=== PATIENT | male | born 1930 | race Caucasian/White ===

== ENCOUNTER → 2016-12-19 | Outpatient (CLI) | payer MEDICARE, OTHER, BC ==
[~2016-12-19] MED LIST: 1-ME1LIQ PO; AMLO10TA2 PO; ASPI81TA82 PO; CELE200C PO; COUM2TAB PO; FINA5TAB2 PO; LISI-366 PO; METO50TA11 PO; PRAV20 PO; PRAV40TA2 PO; TAB-TAB PO; TAMS0.4C4 PO; WARF4TAB51 PO
[2016-12-19 12:15] LABS: AUTOMATED NEUTROPHIL # 4.9 TH/MM3 (1.8-7.7); BASOPHIL % 0.6 % (0.0-2.0); EOSINOPHIL # 0.1 TH/MM3 (0-0.4); EOSINOPHIL % 1.1 % (0.0-4.0); HEMATOCRIT 35.3 % (39.0-51.0); HEMO FLAGS DIFF FINAL; LYMPH % 22.8 % (9.0-44.0); LYMPHOCYTE # 1.8 TH/MM3 (1.0-4.8); MEAN CELL VOLUME 96.2 FL (80.0-100.0); MEAN CORPUSCULAR HEMOGLOBIN 30.4 PG (27.0-34.0); MEAN CORPUSCULAR HGB CONC 31.7 % (32.0-36.0); MONO % 12.1 % (0.0-8.0); NEUT % 63.4 % (16.0-70.0); PLATELET COUNT 210 TH/MM3 (150-450); RED BLOOD COUNT 3.67 MIL/MM3 (4.50-5.90); WHITE BLOOD COUNT 7.8 TH/MM3 (4.0-11.0)
[2016-12-19 12:23] LABS: ANION GAP 12 MEQ/L (5-15); AST (GOT) 41 U/L (15-37); BICARBONATE 18.9 MEQ/L (21.0-32.0); BLOOD UREA NITROGEN 32 MG/DL (7-18); CHLORIDE 108 MEQ/L (98-107); GLOMERULAR FILTRATION RATE 39 ML/MIN (>89); GLUCOSE,FASTING 140 MG/DL (74-99); POTASSIUM 5.5 MEQ/L (3.5-5.1); SODIUM (NA) 139 MEQ/L (136-145)
[2016-12-19 12:24] LABS: ALT (GPT) 33 U/L (12-78)
[2016-12-19 12:34] LABS: ALKALINE PHOSPHATASE 74 U/L (45-117); HDL CHOLESTEROL 22.8 MG/DL (40.0-60.0); LDL CHOLESTEROL 31 MG/DL (0-99); TOTAL BILIRUBIN ADULT 0.4 MG/DL (0.2-1.0)
== END ==
LOC: PLAB 10:14
PROVIDERS: ATTEND Family Medicine
DX: I10 Essential (primary) hypertension (principal); D64.9 Anemia, unspecified; E78.89 Other lipoprotein metabolism disorders; I48.91 Unspecified atrial fibrillation; R53.81 Other malaise
CPT/HCPCS: 36415; 80053; 80061; 84443; 85025

== ENCOUNTER 2017-01-09 17:45 | Observation (INO) | payer MEDICARE, OTHER, BC ==
[~2017-01-09] VITALS: Ht 175.3 cm; Wt 71.7 kg
[~2017-01-09 17:45] MED LIST changes: -AMLO10TA2 PO; -FINA5TAB2 PO; -METO50TA11 PO; -PRAV40TA2 PO; -TAMS0.4C4 PO; -WARF4TAB51 PO
[2017-01-09 17:47] VITALS: BP 120/64; PULSE 86; RESP 16; TEMP 98; O2SAT 97
[2017-01-09] MEDS ORDERED: FINA5TAB2 PO (17:53)
[2017-01-09] MEDS ORDERED: TAMS0.4C4 PO (17:53)
[2017-01-09] MEDS ORDERED: PRAV40TA2 PO (17:53)
[2017-01-09] MEDS ORDERED: AMLO10TA2 PO (17:53)
[2017-01-09] MEDS ORDERED: WARF4TAB51 PO (17:53)
[2017-01-09] MEDS ORDERED: METO50TA11 PO (17:53)
--- NOTE | 2017-01-09 18:55 | PD ---
HPI Chief Complaint: Musculoskeletal Complaint Time Seen by Provider: 18:15 Travel History International Travel<30 days: No Contact w/Intl Traveler<30days: No Traveled to known affect area: No History of Present Illness HPI 86 year-old male presents to the emergency department for evaluation of right knee pain for the past 3 days. Patient states he was doing "deep knee bends"at the gym when he heard a loud pop. He had immediate pain but it wasn't severe. Patient states he went home and went to bed but the following morning when he woke up his pain was unbearable. He had to stay in bed all day. He has been applying topical medicine without any relief in symptoms. Patient has not taken anything orally for symptoms. He states pain is okay when his knee is immobile but with any range of motion, it is unbearable. He reports some numbness in his foot. He has history of hypertension, BPH, and is on warfarin for A. fib. His PCP is Dr. Toledo. His orthopedic surgeon is Mariano Rodrigez. [facility] Past Medical History Cardiac Catheterization: Yes Cardiovascular Problems: Yes High Cholesterol: Yes Coronary Artery Disease: Yes Influenza Vaccination: Yes Past Surgical History Coronary Artery Bypass Graft: Yes Joint Replacement: Yes (LEFT KNEE) Social History Alcohol Use: No Tobacco Use: No Substance Use: No Allergies-Medications (Allergen,Severity, Reaction): Coded Allergies: No Known Allergies (Verified , 01/09/17) Uncoded Allergies: NKA (Allergy, Unknown, 03/14/03) Reported Meds & Prescriptions Reported Meds & Active Scripts Active Reported Tamsulosin (Tamsulosin HCl) 0.4 Mg Cap 0.4 Mg PO HS Pravastatin 40 Mg Tab 40 Mg PO HS Finasteride 5 Mg Tab 5 Mg PO DAILY Do not crush. Metoprolol Succinate ER 24 HR (Metoprolol Succinate) 50 Mg Tab 50 Mg PO DAILY Warfarin 2 Mg Tab 2 Mg PO DAILY Amlodipine (Amlodipine Besylate) 10 Mg Tab 10 Mg PO DAILY Review of Systems Except as stated in HPI: all other systems reviewed are Neg Physical Exam Narrative GENERAL: Well-nourished, well-developed male in no acute distress. Afebrile. SKIN: Focused skin assessment warm/dry. Mild erythema of the patellar region. No ecchymosis. HEAD: Normocephalic. EYES: No scleral icterus. No injection or drainage. NECK: Supple, trachea midline. No JVD or lymphadenopathy. CARDIOVASCULAR: Regular rate and rhythm without murmurs, gallops, or rubs. RESPIRATORY: Breath sounds equal bilaterally. No accessory muscle use. EXTREMITY: Right knee extremely tender to light palpation. Very limited range of motion secondary to pain. Obvious effusion and moderate edema of the right knee. 2+ dorsalis pedis pulse. Patient has pain with active and passive range of motion. Compartments soft. Data Data Last Documented VS Vital Signs Date Time Temp Pulse Resp B/P Pulse Ox O2 Delivery O2 Flow Rate FiO2 01/09/17 17:47 98.0 86 16 120/64 97 Orders Knee, Complete (4vws) (01/09/17 ) Acetamin-Hydrocod 325-5 Mg ([place] 5-325 (01/09/17 19:00) MDM Medical Decision Making Medical Screen Exam Complete: Yes Emergency Medical Condition: Yes Medical Record Reviewed: Yes Differential Diagnosis Internal derangement, strain, fracture, hemarthrosis Narrative Course 86-year-old male presents to the emergency room for evaluation of right knee pain for the past 3 days. Patient injured it while working out. States he heard a pop and had immediate pain that has been worsening over time. Right lower extremity is neurovascularly intact with 2+ dorsalis pedis pulse. Patient has extreme tenderness to palpation of the knee and pain with active and passive range of motion. There is moderate effusion and edema. X-ray shows moderate effusion. Likely has internal derangement and will need outpatient MRI. Patient has no medical indication for admission at this time but is unable to ambulate, lives alone, is on anticoagulants, and has no family in the area. He will be admitted for rehabilitation consult. I spoke to Dr. Alfredo who agrees to admit this patient to her service. Diagnosis Primary Impression: Right knee sprain Qualified Code: S83.91XA - Sprain of right knee, unspecified ligament, initial encounter Referrals: Orthopaedic Surgeon Additional Instructions: Rest and drink plenty of fluids. Take Lortab as directed, as needed for pain. Do not drink alcohol or drive while taking this medication. Keep knee tightly wrapped until follow-up. Apply ice to the affected area for 20 minutes at a time, as needed for pain and swelling. Follow-up with orthopedic surgeon. Return to the emergency room for worsening symptoms. Condition: Stable Charlette Young Jan 09, 2017 18:54
[2017-01-09] MEDS ORDERED: ACETAMINOPHEN/HYDROcodone 325 MG/5 MG TAB PO ONE (19:00)
--- NOTE | 2017-01-09 19:57 | RADRPT ---
EXAM DATE/TIME: 01/09/2017 18:56 [facility] COMPARISON: No previous studies available for comparison. INDICATIONS : Right knee pain behind knee cap after doing a deep knee bend patient states he heard a pop. MEDICAL HISTORY : None. SURGICAL HISTORY : Total knee replacement, left. ENCOUNTER: Initial ACUITY: 2 days PAIN SCORE: 8/10 LOCATION: Right knee FINDINGS: Mild osteopenia. There is marked narrowing of the lateral compartment of the knee with sclerosis of the articular surfaces on both sides of the joint. No significant narrowing of the medial compartmen t. The patella appears grossly intact. There is some fullness in the suprapatellar soft tissues sug gesting the possibility of joint effusion. Prominent vascular calcification in the posterior thigh t hrough calf. Multiple hemoclips in the soft tissues of the medial proximal leg. CONCLUSION: 1. Moderate severity lateral compartmental osteoarthritis. 2. Possible knee effusion. Jim Milner MD on January 09, 2017 at 19:53 Board Certified Radiologist. This report was verified electronically.
[2017-01-09] MEDS ORDERED: NALOXONE HCL 0.4 MG/ML AMP IV PRN (20:30)
[2017-01-09] MEDS ORDERED: SODIUM CHLORIDE 0.9% FLUSH 10 ML FLUSH IV FLUSH PRN (20:30)
[2017-01-09 20:35] VITALS: BP 130/66; PULSE 78; RESP 18; O2SAT 95
[2017-01-09] MEDS: SODIUM CHLORIDE 0.9% FLUSH 10 ML FLUSH IV FLUSH SCH (21:00)
[2017-01-09] MEDS: ACETAMINOPHEN/HYDROcodone 325 MG/5 MG TAB PO PRN (23:10)
[2017-01-09 23:30] VITALS: PULSE 77
[2017-01-10] VITALS: BP 134/69; PULSE 74; RESP 20; TEMP 96.4; O2SAT 99
[2017-01-10] MEDS: ACETAMINOPHEN/HYDROcodone 325 MG/5 MG TAB PO PRN ×3 (03:50→20:25)
[2017-01-10 04:00] VITALS: BP 109/56; PULSE 72; RESP 18; TEMP 97.6; O2SAT 95
[2017-01-10 06:25] LABS: POTASSIUM 3.4 MEQ/L (3.5-5.1)
[2017-01-10 06:27] LABS: AUTOMATED NEUTROPHIL # 5.9 TH/MM3 (1.8-7.7); BASOPHIL # 0.1 TH/MM3 (0-0.2); BASOPHIL % 0.8 % (0.0-2.0); BICARBONATE 26.9 MEQ/L (21.0-32.0); EOSINOPHIL # 0.1 TH/MM3 (0-0.4); EOSINOPHIL % 0.7 % (0.0-4.0); HEMATOCRIT 29.4 % (39.0-51.0); HEMO FLAGS DIFF FINAL; LYMPH % 17.1 % (9.0-44.0); LYMPHOCYTE # 1.7 TH/MM3 (1.0-4.8); MEAN CORPUSCULAR HEMOGLOBIN 31.2 PG (27.0-34.0); MEAN CORPUSCULAR HGB CONC 33.2 % (32.0-36.0); MONO % 19.8 % (0.0-8.0); NEUT % 61.6 % (16.0-70.0); PLATELET COUNT 135 TH/MM3 (150-450); RED BLOOD COUNT 3.13 MIL/MM3 (4.50-5.90); RED CELL DISTRIBUTION WIDTH 13.4 % (11.6-17.2); WHITE BLOOD COUNT 9.7 TH/MM3 (4.0-11.0)
[2017-01-10 08:00] VITALS: BP 110/77; PULSE 84; RESP 20; TEMP 95.6; O2SAT 95
[2017-01-10] MEDS: SODIUM CHLORIDE 0.9% FLUSH 10 ML FLUSH IV FLUSH SCH ×2 (09:07→21:49)
--- NOTE | 2017-01-10 10:29 | HHI.HP ---
[facility] No Primary Care Physician Admission Diagnosis right knee pain, inability to ambulate, unsafe for discharge Diagnoses: (1) Right knee pain Diagnosis: Principal (2) Inability to ambulate due to right knee Diagnosis: Principal (3) Hypertension Diagnosis: Secondary (4) Coronary artery disease Diagnosis: Secondary (5) Atrial fibrillation Diagnosis: Secondary Chief Complaint: Right knee pain Travel History International Travel<30 Days: No Contact w/Intl Traveler <30 Da: No Traveled to Known Affected Are: No History of Present Illness Written by Kris Allred, acting as scribe for Dr. Cabrera on 01/10/17 at 10: 15. This note was transcribed by scribe Kris JIMENEZ. I, Dr. Ana Maria Cabrera personally performed the history, physical exam, and medical decision making; and confirmed the accuracy of the information in the transcribed note. Authenticated by Dr. Ana Maria Cabrera on 01/10/17 at 10:15. 86-year-old male with known history of hypertension, atrial fibrillation, coronary disease status post CABG who presented to the hospital because of right knee pain and inability to ambulate. Patient states that he usually goes and exercises 5 times a week. Patient states that he was on his last set of deep knee bends on Friday when he heard a pop and started developing pain in his right knee. The patient states that he went home any was using ice and throughout the next couple days the pain progressively got worse, he developed redness over his knee, he could not ambulate so he called [facility] who brought him to the hospital for evaluation. Patient had workup done to include x-ray which showed moderate severity lateral compartmental osteoarthritis and possible knee effusion. Patient has rather significant cardiac history, he lives at home by himself, does not have any family locally, neighbors and friends are unavailable at this time. Patient is unable to walk and take care of himself at home and is high risk for further injury. Patient was recommended observation in the hospital for further evaluation and management. Patient orthopedist is Dr. Rodrigez Review of Systems Constitutional: DENIES: Diaphoretic episodes, Fatigue, Fever, Weight gain, Weight loss, Chills, Dizziness, Change in appetite, Night Sweats Eyes: DENIES: Blurred vision, Diplopia, Eye inflammation, Eye pain, Vision loss , Double Vision Ears, nose, mouth, throat: DENIES: Hearing loss, Nasal discharge, Throat pain, Ear Pain, Running Nose, Sinus Pain Respiratory: DENIES: Apneas, Cough, Snoring, Wheezing, Hemoptysis, Sputum production, Shortness of breath Cardiovascular: DENIES: Chest pain, Palpitations, Syncope, Dyspnea on Exertion , Lower Extremity Edema, Orthopnea Gastrointestinal: DENIES: Abdominal pain, Black stools, Bloody stools, Constipation, Diarrhea, Nausea, Vomiting, Difficulty Swallowing, Anorexia Musculoskeletal: COMPLAINS OF: Joint pain, DENIES: Muscle aches, Stiffness, Joint Swelling, Back pain, Neck pain Neurologic: COMPLAINS OF: Abnormal gait, Poor Balance, DENIES: Headache, Localized weakness, Paresthesias, Seizures, Speech Problems, Tremor Psychiatric: DENIES: Anxiety, Confusion, Mood changes, Depression, Hallucinations, Agitation, Suicidal Ideation, Homicidal Ideation, Delusions Past Family Social History Past Medical History Hypertension Hyperlipidemia Coronary artery disease Chronic Atrial fibrillation Peripheral arterial disease Past Surgical History Coronary bypass surgery in 2002 Permanent pacemaker Left knee replacement Cataract surgery Reported Medications Reported Meds & Active Scripts Active Reported Tamsulosin (Tamsulosin HCl) 0.4 Mg Cap 0.4 Mg PO HS Pravastatin 40 Mg Tab 40 Mg PO HS Finasteride 5 Mg Tab 5 Mg PO DAILY Do not crush. Metoprolol Succinate ER 24 HR (Metoprolol Succinate) 50 Mg Tab 50 Mg PO DAILY Warfarin 2 Mg Tab 2 Mg PO DAILY Amlodipine (Amlodipine Besylate) 10 Mg Tab 10 Mg PO DAILY Allergies: Coded Allergies: MRI PRECAUTION (Verified Adverse Reaction, Severe, NON CONDITIONAL PACER KMD 01/10/17, 01/10/17) PT HAS AN ADAPTA NON CONDITIONAL PACEMAKER BY [employer] Uncoded Allergies: NKA (Allergy, Unknown, 03/14/03) Family History Reviewed and significant for mother in her 60s from diabetes, Social History Patient states that he only smoked during the time he was [place] , he does drink alcohol every weekend, he states that he shares a bottle of wine or a sixpack of beer. Denies any illicit drug Physical Exam Vital Signs Vital Signs Date Time Temp Pulse Resp B/P Pulse Ox O2 Delivery O2 Flow Rate FiO2 01/10/17 08:00 95.6 84 20 110/77 95 01/10/17 04:00 97.6 72 18 109/56 95 01/10/17 00:00 96.4 74 20 134/69 99 01/09/17 23:30 77 01/09/17 20:40 78 01/09/17 20:35 78 18 130/66 95 Room Air 01/09/17 20:15 18 01/09/17 17:47 98.0 86 16 120/64 97 Physical Exam GENERAL: Well-developed, well-nourished, in no acute distress. alert and orientated HEENT: Head is normocephalic without any lesions or masses noted. Facial features are symmetric. Eyes: Pupils equal round reactive to light. Extraocular muscles are intact. Conjunctivae were clear. Oropharyngeal: Pharynx without any erythema edema. Tongue is midline without deviation. Buccal mucosa is moist without any masses or lesions NECK: Supple without any masses. Trachea midline no deviation. No JVD, no bruits are appreciated CARDIAC: Regular rhythm, regular rate. S1/S2 are heard. 2/6 holosystolic murmur gallops or rubs. LUNGS: Clear to auscultation bilaterally. No wheeze, rhonchi or rales. No use of accessory muscles on inspiration or expiration. ABDOMEN: Soft, nontender. Nondistended. Bowel sounds heard in all 4 quadrants. No organomegaly or masses. Negative rebound, negative guarding EXTREMITIES: No edema, pulses are equal bilaterally. No cyanosis or clubbing NEUROLOGY: Mood and affect appear appropriate. Cranial nerves II through XII grossly intact. Muscle strength 5/5 in upper and lower extremities bilaterally. Deep tendon reflexes are 2+ in upper and lower extremities bilaterally. RIGHT KNEE: Knee appears to warm to the touch and erythematous noted over the patella. Is painful in all range of motions. There was no distraction noted medially, laterally, anteriorly or posteriorly. Laboratory Laboratory Tests Test 01/10/17 05:33 White Blood Count 9.7 Red Blood Count 3.13 Hemoglobin 9.8 Hematocrit 29.4 Mean Corpuscular Volume 94.0 Mean Corpuscular Hemoglobin 31.2 Mean Corpuscular Hemoglobin 33.2 Concent Red Cell Distribution Width 13.4 Platelet Count 135 Mean Platelet Volume 10.7 Neutrophils (%) (Auto) 61.6 Lymphocytes (%) (Auto) 17.1 Monocytes (%) (Auto) 19.8 Eosinophils (%) (Auto) 0.7 Basophils (%) (Auto) 0.8 Neutrophils # (Auto) 5.9 Lymphocytes # (Auto) 1.7 Monocytes # (Auto) 1.9 Eosinophils # (Auto) 0.1 Basophils # (Auto) 0.1 CBC Comment DIFF FINAL Differential Comment Sodium Level 139 Potassium Level 3.4 Chloride Level 103 Carbon Dioxide Level 26.9 Anion Gap 9 Blood Urea Nitrogen 15 Creatinine 0.78 Estimat Glomerular Filtration 95 Rate Random Glucose 93 Calcium Level 8.4 Result Diagram: 01/10/17 0533 01/10/17 0533 Imaging Last Impressions Knee X-Ray 01/09/17 0000 Signed Impressions: Service Date/Time: January 18:56 - CONCLUSION: 1. Moderate severity lateral compartmental osteoarthritis. 2. Possible knee effusion. Jim Milner MD Assessment and Plan Assessment and Plan 86-year-old male who is brought to the hospital by ambulance because of inability to ambulate, severe right knee pain Right knee pain , intractable, with inability to ambulate Possible internal derangement, hemarthrosis X-ray does indicate moderate severity lateral compartmental osteoarthritis and possible knee effusion Obtain MRI for further evaluation Physical therapy evaluation continue pain control Consult case management for discharge arrangements Hypertension, hyperlipidemia, coronary artery disease, chronic atrial fibrillation Blood pressure stable this time Continue home medications DVT prevention patient is on Coumadin Problem Qualifiers (1) Right knee pain: Qualified Code: M25.561 - Acute pain of right knee (2) Hypertension: Qualified Code: I15.9 - Secondary hypertension (3) Coronary artery disease: Qualified Code: I25.10 - Coronary artery disease without angina pectoris, unspecified vessel or lesion type, unspecified whether [place] or transplanted heart (4) Atrial fibrillation: Qualified Code: I48.91 - Atrial fibrillation, unspecified type Kris Allred Jan 10, 2017 10:29 Ana Maria Cabrera MD Jan 10, 2017 13:42
[2017-01-10] MEDS: WARFARIN SOD 2 MG TAB PO SCH (10:57)
[2017-01-10 10:58] LABS: INTERNATIONAL NORMALIZED RATIO 1.8 RATIO; PROTHROMBIN TIME - PATIENT 20.8 SEC (9.8-11.6)
[2017-01-10] MEDS: METOPROLOL SUCCINATE 50 MG EXTENDED RELEASE TAB PO SCH (10:58)
[2017-01-10] MEDS: FINASTERIDE 5 MG TAB PO SCH (10:58)
[2017-01-10 12:00] VITALS: BP 132/60; PULSE 71; RESP 18; TEMP 98.7; O2SAT 95
[2017-01-10 16:00] VITALS: BP 139/62; PULSE 78; RESP 20; TEMP 99.4; O2SAT 95
[2017-01-10 20:09] VITALS: BP 135/66; PULSE 73; RESP 20; TEMP 99.9; O2SAT 94
[2017-01-10] MEDS: PRAVASTATIN SOD 40 MG TAB PO SCH (21:49)
[2017-01-10] MEDS: TAMSULOSIN HCL 0.4 MG CAP PO SCH (21:49)
[2017-01-11 01:25] VITALS: BP 140/71; PULSE 70; RESP 12; TEMP 98.9; O2SAT 91
[2017-01-11] MEDS: ACETAMINOPHEN/HYDROcodone 325 MG/5 MG TAB PO PRN ×5 (01:26→18:16)
[2017-01-11 08:00] VITALS: BP 122/61; PULSE 72; RESP 18; TEMP 96.9; O2SAT 95
[2017-01-11] MEDS: WARFARIN SOD 2 MG TAB PO SCH (08:01)
[2017-01-11] MEDS: SODIUM CHLORIDE 0.9% FLUSH 10 ML FLUSH IV FLUSH SCH ×2 (08:01→21:24)
[2017-01-11] MEDS: METOPROLOL SUCCINATE 50 MG EXTENDED RELEASE TAB PO SCH (08:01)
[2017-01-11] MEDS: FINASTERIDE 5 MG TAB PO SCH (08:01)
[2017-01-11 12:00] VITALS: BP 127/63; PULSE 72; RESP 18; TEMP 97.3; O2SAT 97
--- NOTE | 2017-01-11 13:10 | HHI.PR ---
Subjective Remarks In bed. Says pain is better controlled by meds. He is not able to ambulate much. He dod complainof indigestion. No vomiting, no diarrhea or constipation. Denies fever or chills. Knee is still very painful, red and swollen. Objective Vitals Vital Signs Date Time Temp Pulse Resp B/P Pulse Ox O2 Delivery O2 Flow Rate FiO2 01/11/17 12:00 97.3 72 18 127/63 97 01/11/17 08:00 96.9 72 18 122/61 95 01/11/17 01:25 98.9 70 12 140/71 91 01/10/17 20:09 99.9 73 20 135/66 94 01/10/17 16:00 99.4 78 20 139/62 95 I/O 01/10/17 01/10/17 01/10/17 01/11/17 01/11/17 01/11/17 07:00 15:00 23:00 07:00 15:00 23:00 Intake Total 240 ml 720 ml 240 ml Output Total 375 ml 600 ml 250 ml Balance -135 ml 720 ml 240 ml -600 ml -250 ml Intake Oral 240 ml 720 ml 240 ml Output Urine Total 375 ml 600 ml 250 ml # Voids 1 2 # Bowel Movements 1 Result Diagram: 01/10/17 0533 01/10/17 0533 Imaging Last Impressions Knee X-Ray 01/09/17 0000 Signed Impressions: Service Date/Time: January 18:56 - CONCLUSION: 1. Moderate severity lateral compartmental osteoarthritis. 2. Possible knee effusion. Jim Milner MD Objective Remarks GENERAL: Well-developed, well-nourished, in no acute distress. alert and orientated CARDIAC: Regular rhythm, regular rate. S1/S2 are heard. 2/6 holosystolic murmur gallops or rubs. LUNGS: Clear to auscultation bilaterally. No wheeze, rhonchi or rales. No use of accessory muscles on inspiration or expiration. ABDOMEN: Soft, nontender. Nondistended. Bowel sounds heard in all 4 quadrants. No organomegaly or masses. Negative rebound, negative guarding EXTREMITIES: No edema, pulses are equal bilaterally. No cyanosis or clubbing RIGHT KNEE: Knee appears to warm to the touch and erythematous noted over the patella. Is painful in all range of motions. There was no distraction noted medially, laterally, anteriorly or posteriorly. NEUROLOGY: Mood and affect appear appropriate. Cranial nerves II through XII grossly intact. Muscle strength 5/5 in upper and lower extremities bilaterally. Deep tendon reflexes are 2+ in upper and lower extremities bilaterally. A/P Problem List: (1) Right knee pain ICD Code: M25.561 Status: Acute (2) Inability to ambulate due to right knee ICD Code: R26.2 Status: Acute (3) Hypertension ICD Code: I10 Status: Acute (4) Coronary artery disease ICD Code: I25.10 Status: Acute (5) Atrial fibrillation ICD Code: I48.91 Status: Acute Assessment and Plan 86-year-old male who is brought to the hospital by ambulance because of inability to ambulate, severe right knee pain Right knee pain , intractable, with inability to ambulate Possible internal derangement, hemarthrosis X-ray does indicate moderate severity lateral compartmental osteoarthritis and possible knee effusion Obtain MRI for further evaluation Physical therapy evaluation continue pain control Consult case management for discharge arrangements Hypertension, hyperlipidemia, coronary artery disease, chronic atrial fibrillation Blood pressure stable this time Continue home medications DVT prevention patient is on Coumadin Discussed with the patient nurse DC plan Likely needs rehab. Problem Qualifiers (1) Right knee pain: Qualified Code: M25.561 - Acute pain of right knee (2) Hypertension: Qualified Code: I15.9 - Secondary hypertension (3) Coronary artery disease: Qualified Code: I25.10 - Coronary artery disease without angina pectoris, unspecified vessel or lesion type, unspecified whether [place] or transplanted heart (4) Atrial fibrillation: Qualified Code: I48.91 - Atrial fibrillation, unspecified type Ana Maria Cabrera MD Jan 11, 2017 13:10
[2017-01-11] MEDS ORDERED: NORC5TAB PO (13:13)
[2017-01-11] MEDS ORDERED: PANTOPRAZOLE SOD 20 MG DELAYED RELEASE TAB PO ONE (13:15)
--- NOTE | 2017-01-11 13:15 | HHI.DS ---
Discharge Summary Admission Date Jan 09, 2017 at 20:24 Discharge Date: Jan 12, 2017 Admitting Diagnosis right knee pain, inability to ambulate, unsafe for discharge (1) Right knee pain ICD Code: M25.561 Diagnosis: Principal (2) Inability to ambulate due to right knee ICD Code: R26.2 Diagnosis: Principal (3) Hypertension ICD Code: I10 Diagnosis: Secondary (4) Coronary artery disease ICD Code: I25.10 Diagnosis: Secondary (5) Atrial fibrillation ICD Code: I48.91 Diagnosis: Secondary Procedures none Brief History - From Admission Written by Kris Allred, acting as scribe for Dr. Cabrera on 01/10/17 at 10: 15. This note was transcribed by scribe Kris JIMENEZ. I, Dr. Ana Maria Cabrera personally performed the history, physical exam, and medical decision making; and confirmed the accuracy of the information in the transcribed note. Authenticated by Dr. Ana Maria Cabrera on 01/10/17 at 10:15. 86-year-old male with known history of hypertension, atrial fibrillation, coronary disease status post CABG who presented to the hospital because of right knee pain and inability to ambulate. Patient states that he usually goes and exercises 5 times a week. Patient states that he was on his last set of deep knee bends on Friday when he heard a pop and started developing pain in his right knee. The patient states that he went home any was using ice and throughout the next couple days the pain progressively got worse, he developed redness over his knee, he could not ambulate so he called [facility] who brought him to the hospital for evaluation. Patient had workup done to include x-ray which showed moderate severity lateral compartmental osteoarthritis and possible knee effusion. Patient has rather significant cardiac history, he lives at home by himself, does not have any family locally, neighbors and friends are unavailable at this time. Patient is unable to walk and take care of himself at home and is high risk for further injury. Patient was recommended observation in the hospital for further evaluation and management. Patient orthopedist is Dr. Rodrigez CBC/BMP: 01/10/17 0533 01/10/17 0533 Significant Findings Laboratory Tests Test 01/10/17 05:33 Red Blood Count 3.13 MIL/MM3 (4.50-5.90) Hemoglobin 9.8 GM/DL (13.0-17.0) Hematocrit 29.4 % (39.0-51.0) Platelet Count 135 TH/MM3 (150-450) Monocytes (%) (Auto) 19.8 % (0.0-8.0) Monocytes # (Auto) 1.9 TH/MM3 (0-0.9) Prothrombin Time 20.8 SEC (9.8-11.6) Potassium Level 3.4 MEQ/L (3.5-5.1) Calcium Level 8.4 MG/DL (8.5-10.1) Imaging Last Impressions Lower Extremity CT 01/11/17 0000 Signed Impressions: Service Date/Time: Wednesday, January 11, 2017 14:30 - CONCLUSION: 1. No fracture. 2. Loose body and small joint effusion. 3. Chondrocalcinosis. Lucian Armstrong MD Knee X-Ray 01/09/17 0000 Signed Impressions: Service Date/Time: January 18:56 - CONCLUSION: 1. Moderate severity lateral compartmental osteoarthritis. 2. Possible knee effusion. Jim Milner MD PE at Discharge GENERAL: Well-developed, well-nourished, in no acute distress. alert and orientated CARDIAC: Regular rhythm, regular rate. S1/S2 are heard. 2/6 holosystolic murmur gallops or rubs. LUNGS: Clear to auscultation bilaterally. No wheeze, rhonchi or rales. No use of accessory muscles on inspiration or expiration. ABDOMEN: Soft, nontender. Nondistended. Bowel sounds heard in all 4 quadrants. No organomegaly or masses. Negative rebound, negative guarding EXTREMITIES: No edema, pulses are equal bilaterally. No cyanosis or clubbing RIGHT KNEE: Knee appears to warm to the touch and erythematous noted over the patella. Is painful in all range of motions. There was no distraction noted medially, laterally, anteriorly or posteriorly. NEUROLOGY: Mood and affect appear appropriate. Cranial nerves II through XII grossly intact. Muscle strength 5/5 in upper and lower extremities bilaterally. Deep tendon reflexes are 2+ in upper and lower extremities bilaterally. Hospital Course 86-year-old male who is brought to the hospital by ambulance because of inability to ambulate, severe right knee pain Right knee pain, intractable, with inability to ambulate Possible internal derangement, hemarthrosis X-ray does indicate moderate severity lateral compartmental osteoarthritis and possible knee effusion CT knee as MRI can't be done 2/2 has a PM, for further evaluation. X ray and also CT of knee reviewed and findings discussed with Dr Negrete Orthopedic doctor. He recommends Hinged knee brace, pain control and to follow up as OP Physical therapy evaluation continue pain control Consult case management for discharge arrangements Hypertension, hyperlipidemia, coronary artery disease, chronic atrial fibrillation Blood pressure stable this time Continue home medications DVT prevention patient is on Coumadin Discussed with the patient nurse DC plan needs rehab. Case management following for DC plan. DC to SNF in stable condition to follow up as OP with PCP and consultants. Pt Condition on Discharge: Stable Discharge Disposition: Discharge to SNF Discharge Time: > 30 minutes Discharge Instructions DIET: Follow Instructions for: Heart Healthy Diet Activities you can perform: Weight Bearing as Denise Follow up Referrals: Orthopedics - 1 Week PCP Follow-up - 3-5 Days New Medications: Docusate Sodium (Docusate Sodium) 100 Mg Cap 100 MG PO BID Prevent Constipation #60 Ref 0 CAP Hydrocodone-Acetaminophen ([place]) 5-325 mg Tab 1 TAB PO Q6H PRN PAIN #15 Ref 0 TAB Continued Medications: Amlodipine (Amlodipine) 10 Mg Tab 10 MG PO DAILY Blood Pressure Management #30 Ref 0 TAB Finasteride (Finasteride) 5 Mg Tab 5 MG PO DAILY Do not crush. Manage Prostate Problems #30 Ref 0 TAB Metoprolol Succinate ER 24 HR (Metoprolol Succinate ER 24 HR) 50 Mg Tab 50 MG PO DAILY #30 Ref 0 TAB Pravastatin (Pravastatin) 40 Mg Tab 40 MG PO HS Cholesterol Management #30 Ref 0 TAB Tamsulosin (Tamsulosin) 0.4 Mg Cap 0.4 MG PO HS Manage Prostate Problems #30 Ref 0 CAP Warfarin (Warfarin) 2 Mg Tab 2 MG PO DAILY Blood Clot Prevention #30 Ref 0 TAB Ana Maria Cabrera MD Jan 11, 2017 13:15
[2017-01-11] MEDS ORDERED: DOCU100C PO (13:24)
[2017-01-11] MEDS ORDERED: IOHEXOL 350 MG/ML 10 ML VIAL (for RAD DIAG) IV ONE (15:11)
--- NOTE | 2017-01-11 15:22 | RADRPT ---
EXAM DATE/TIME: 01/11/2017 14:30 [facility] COMPARISON: No previous studies available for comparison. INDICATIONS : Right knee pain, redness and swelling. Difficulty ambulating. IV CONTRAST: 70 cc Omnipaque 350 (iohexol) IV RADIATION DOSE: 11.11 CTDIvol (mGy) MEDICAL HISTORY : Cardiovascular disease. SURGICAL HISTORY : CABG Pacemaker. ENCOUNTER: Initial ACUITY: 2 days PAIN SCALE: 8/10 LOCATION: Right knee. TECHNIQUE: Volumetric scanning of the knee was performed. Using automated exposure control and adjustment of th e mA and/or kV according to patient size, radiation dose was kept as low as reasonably achievable to obtain optimal diagnostic quality images. DICOM format image data is available electronically for re view and comparison. FINDINGS: BONES: No evidence of fracture. Alignment is within normal limits. Moderate to severe osteoarthritis. JOINTS: Small joint effusion. A loose body seen posteriorly measuring 1.6 x 1.9 cm. Chondrocalcinosis. SOFT TISSUES: Muscles, tendons and neurovascular structures are grossly unremarkable. No evidence of mass, organize d fluid collection, or foreign body. CONCLUSION: 1. No fracture. 2. Loose body and small joint effusion. 3. Chondrocalcinosis. Lucian Armstrong MD on January 11, 2017 at 15:17 Board Certified Radiologist. This report was verified electronically.
[2017-01-11 16:00] VITALS: BP 107/56; PULSE 63; RESP 18; TEMP 96; O2SAT 95
[2017-01-11 20:00] VITALS: BP 110/72; PULSE 70; RESP 18; TEMP 97.8; O2SAT 96
[2017-01-11] MEDS: TAMSULOSIN HCL 0.4 MG CAP PO SCH (21:24)
[2017-01-11] MEDS: PRAVASTATIN SOD 40 MG TAB PO SCH (21:25)
[2017-01-12] VITALS: BP 126/66; PULSE 71; RESP 18; TEMP 97.7; O2SAT 97
[2017-01-12 06:46] LABS: AUTOMATED NEUTROPHIL # 6.8 TH/MM3 (1.8-7.7); BASOPHIL % 0.2 % (0.0-2.0); EOSINOPHIL % 0.3 % (0.0-4.0); HEMATOCRIT 31.2 % (39.0-51.0); LYMPH % 11.1 % (9.0-44.0); MEAN CELL VOLUME 94.1 FL (80.0-100.0); MEAN CORPUSCULAR HEMOGLOBIN 30.5 PG (27.0-34.0); MEAN CORPUSCULAR HGB CONC 32.4 % (32.0-36.0); MONO % 11.8 % (0.0-8.0); NEUT % 76.6 % (16.0-70.0); PLATELET COUNT 152 TH/MM3 (150-450); RED BLOOD COUNT 3.32 MIL/MM3 (4.50-5.90); RED CELL DISTRIBUTION WIDTH 13.6 % (11.6-17.2); WHITE BLOOD COUNT 8.9 TH/MM3 (4.0-11.0)
[2017-01-12 06:50] LABS: HEMO FLAGS DIFF FINAL
[2017-01-12 06:59] LABS: POTASSIUM 3.5 MEQ/L (3.5-5.1)
[2017-01-12 07:06] LABS: BICARBONATE 27.9 MEQ/L (21.0-32.0); MAGNESIUM 1.5 MG/DL (1.5-2.5)
[2017-01-12 08:00] VITALS: BP 124/55; PULSE 71; RESP 20; TEMP 99.2; O2SAT 92
[2017-01-12] MEDS ORDERED: PANTOPRAZOLE SOD 20 MG DELAYED RELEASE TAB PO SCH (09:00)
[2017-01-12] MEDS: FINASTERIDE 5 MG TAB PO SCH (09:39)
[2017-01-12] MEDS: METOPROLOL SUCCINATE 50 MG EXTENDED RELEASE TAB PO SCH (09:39)
[2017-01-12] MEDS: WARFARIN SOD 2 MG TAB PO SCH (09:39)
[2017-01-12] MEDS: SODIUM CHLORIDE 0.9% FLUSH 10 ML FLUSH IV FLUSH SCH (09:43)
--- NOTE | 2017-01-12 11:36 | HHI.PR ---
Subjective Remarks Patient in bed, still with significant pain in his knee, says she can't walk because of pain. Swelling in his knee not improved, using ice compresses. Eating better. No n/v/d/c. No fever or chills/. Objective Vitals Vital Signs Date Time Temp Pulse Resp B/P Pulse Ox O2 Delivery O2 Flow Rate FiO2 01/12/17 08:00 99.2 71 20 124/55 92 01/12/17 04:00 01/12/17 00:00 97.7 71 18 126/66 97 01/11/17 20:00 97.8 70 18 110/72 96 01/11/17 16:00 96.0 63 18 107/56 95 01/11/17 12:00 97.3 72 18 127/63 97 I/O 01/11/17 01/11/17 01/11/17 01/12/17 01/12/17 01/12/17 07:00 15:00 23:00 07:00 15:00 23:00 Intake Total 120 ml 120 ml 240 ml Output Total 600 ml 500 ml 250 ml 350 ml Balance -600 ml -380 ml -130 ml -110 ml Intake Oral 120 ml 120 ml 240 ml Output Urine Total 600 ml 500 ml 250 ml 350 ml # Voids 2 # Bowel Movements 0 0 1 Result Diagram: 01/12/17 0605 01/12/17 0605 Imaging Last Impressions Lower Extremity CT 01/11/17 0000 Signed Impressions: Service Date/Time: Wednesday, January 11, 2017 14:30 - CONCLUSION: 1. No fracture. 2. Loose body and small joint effusion. 3. Chondrocalcinosis. Lucian Armstrong MD Knee X-Ray 01/09/17 0000 Signed Impressions: Service Date/Time: January 18:56 - CONCLUSION: 1. Moderate severity lateral compartmental osteoarthritis. 2. Possible knee effusion. Jim Milner MD Objective Remarks GENERAL: Well-developed, well-nourished, in no acute distress. alert and orientated CARDIAC: Regular rhythm, regular rate. S1/S2 are heard. 2/6 holosystolic murmur gallops or rubs. LUNGS: Clear to auscultation bilaterally. No wheeze, rhonchi or rales. No use of accessory muscles on inspiration or expiration. ABDOMEN: Soft, nontender. Nondistended. Bowel sounds heard in all 4 quadrants. No organomegaly or masses. Negative rebound, negative guarding EXTREMITIES: No edema, pulses are equal bilaterally. No cyanosis or clubbing RIGHT KNEE: Knee appears to warm to the touch and erythematous noted over the patella. Is painful in all range of motions. There was no distraction noted medially, laterally, anteriorly or posteriorly. NEUROLOGY: Mood and affect appear appropriate. Cranial nerves II through XII grossly intact. Muscle strength 5/5 in upper and lower extremities bilaterally. Deep tendon reflexes are 2+ in upper and lower extremities bilaterally. A/P Problem List: (1) Right knee pain ICD Code: M25.561 Status: Acute (2) Inability to ambulate due to right knee ICD Code: R26.2 Status: Acute (3) Hypertension ICD Code: I10 Status: Acute (4) Coronary artery disease ICD Code: I25.10 Status: Acute (5) Atrial fibrillation ICD Code: I48.91 Status: Acute Assessment and Plan 86-year-old male who is brought to the hospital by ambulance because of inability to ambulate, severe right knee pain Right knee pain, intractable, with inability to ambulate Possible internal derangement, hemarthrosis X-ray does indicate moderate severity lateral compartmental osteoarthritis and possible knee effusion CT knee as MRI can't be done 2/2 has a PM, for further evaluation. X ray and also CT of knee reviewed and findings discussed with Dr Negrete Orthopedic doctor. He recommends Hinged knee brace, pain control and to follow up as OP Physical therapy evaluation continue pain control Consult case management for discharge arrangements Hypertension, hyperlipidemia, coronary artery disease, chronic atrial fibrillation Blood pressure stable this time Continue home medications DVT prevention patient is on Coumadin Discussed with the patient nurse DC plan needs rehab. Case management following for DC plan. Problem Qualifiers (1) Right knee pain: Qualified Code: M25.561 - Acute pain of right knee (2) Hypertension: Qualified Code: I15.9 - Secondary hypertension (3) Coronary artery disease: Qualified Code: I25.10 - Coronary artery disease without angina pectoris, unspecified vessel or lesion type, unspecified whether [place] or transplanted heart (4) Atrial fibrillation: Qualified Code: I48.91 - Atrial fibrillation, unspecified type Ana Maria Cabrera MD Jan 12, 2017 11:36
[2017-01-12 12:00] VITALS: BP 121/67; PULSE 80; RESP 20; TEMP 98.2; O2SAT 93
[2017-01-12] MEDS: ACETAMINOPHEN/HYDROcodone 325 MG/5 MG TAB PO PRN ×2 (14:16→18:09)
[2017-01-12 16:00] VITALS: BP 116/61; PULSE 71; RESP 18; TEMP 98.7; O2SAT 95
== END 2017-01-12 19:13 ==
LOC: PHEFT 17:45 → PHEDA 20:24 → PH3B 22:44
PROVIDERS: ADMIT Hospitalist; ATTEND Hospitalist
DX: M25.561 Pain in right knee (principal); S83.91XA Sprain of unspecified site of right knee, initial encounter; M25.461 Effusion, right knee; M11.261 Other chondrocalcinosis, right knee; M17.11 Unilateral primary osteoarthritis, right knee; K30 Functional dyspepsia; R20.0 Anesthesia of skin; I15.9 Secondary hypertension, unspecified; I25.10 Atherosclerotic heart disease of native coronary artery without angina pectoris; I73.9 Peripheral vascular disease, unspecified; I48.2 Chronic atrial fibrillation; E78.5 Hyperlipidemia, unspecified; E78.00 Pure hypercholesterolemia, unspecified; N40.0 Benign prostatic hyperplasia without lower urinary tract symptoms; Z79.899 Other long term (current) drug therapy; Z95.1 Presence of aortocoronary bypass graft; Z79.01 Long term (current) use of anticoagulants; Z87.891 Personal history of nicotine dependence; Z96.652 Presence of left artificial knee joint; Z95.0 Presence of cardiac pacemaker; X58.XXXA Exposure to other specified factors, initial encounter; Y93.B9 Activity, other involving muscle strengthening exercises
CPT/HCPCS: 73564; 73701; 80048; 83735; 85025; 85610; 97163; 99285; G0378; G8987; G8988; L1810; Q9967

== ENCOUNTER → 2017-02-14 | Outpatient (CLI) | payer MEDICARE, BC ==
[~2017-02-14] MED LIST changes: -1-ME1LIQ PO; +AMLO10TA2 PO; +APIX5TAB PO; +ASCO100016 PO; -ASPI81TA82 PO; -CELE200C PO; +CHOL1CAP6 PO; +COMMODE 3-IN-11 MIS; -COUM2TAB PO; +DOCU100C PO; +FERR325T20 PO; +FINA5TAB2 PO; +HYDR-3516 PO; -LISI-366 PO; +LISI-515 PO; +METO50TA11 PO; +MULT1TAB PO; +NORC5TAB PO; +PANT40TA3 PO; +POLY17S PO; -PRAV20 PO; +PRAV40TA2 PO; +PRIL20TA2 PO; +SYMB80AE INH; -TAB-TAB PO; +TAMS0.4C4 PO; +WARF4TAB51 PO; +WHEEMIS3; +[UNRECOGNIZED DRUG - OTHER]
[2017-02-14 12:15] LABS: HEMATOCRIT 36.1 % (39.0-51.0); MEAN CELL VOLUME 95.2 FL (80.0-100.0); MEAN CORPUSCULAR HEMOGLOBIN 31.3 PG (27.0-34.0); MEAN CORPUSCULAR HGB CONC 32.9 % (32.0-36.0); PLATELET COUNT 174 TH/MM3 (150-450); RED BLOOD COUNT 3.79 MIL/MM3 (4.50-5.90); RED CELL DISTRIBUTION WIDTH 14.9 % (11.6-17.2); REVIEW FLAG FINAL; WHITE BLOOD COUNT 6.9 TH/MM3 (4.0-11.0)
[2017-02-14 12:22] LABS: BACTERIA, URINE OCC /hpf; BLOOD, URINE NEG (NEG); COMMENT (UR) CULT NOT INDICATED; CULTURE IF INDICATED CULT NOT INDICATED; GLUCOSE,URINE NEG (NEG); HYALINE CAST, URINE 11 /lpf (RARE); KETONE, URINE NEG (NEG); MUCUS URINE MANY /lpf (OCC); NITRITE,URINE NEG (NEG); PH, URINE 6.5 (5.0-8.5); SQUAMOUS EPITHELIAL CELL URINE <1 /hpf (0-5); URINE COLOR DARK-YELLOW (YELLW/STRAW)
[2017-02-14 12:24] LABS: APTT (PATIENT) 42.2 SEC (24.3-30.1); INTERNATIONAL NORMALIZED RATIO 3.3 RATIO; PROTHROMBIN TIME - PATIENT 38.2 SEC (9.8-11.6)
[2017-02-14 12:45] LABS: BICARBONATE 28.8 MEQ/L (21.0-32.0); POTASSIUM 3.6 MEQ/L (3.5-5.1)
--- NOTE | 2017-02-15 17:16 | EKG ---
Date Performed: 02/14/2017 Time Performed: 12:29:09 PTAGE: 86 years EKG: ELECTRONIC VENTRICULAR PACEMAKER ABNORMAL RHYTHM ECG Compared to prior tracing no significa nt change PREVIOUS TRACING 04/11/2009 09.33.36 DOCTOR: Santi Osorio Interpretating Date/Time 02/15/2017 17:14:06
== END ==
LOC: CPRE 11:41
PROVIDERS: ATTEND Orthopaedic Surgery
DX: Z01.810 Encounter for preprocedural cardiovascular examination (principal); Z01.812 Encounter for preprocedural laboratory examination; M17.11 Unilateral primary osteoarthritis, right knee; M79.609 Pain in unspecified limb; R94.31 Abnormal electrocardiogram [ECG] [EKG]
CPT/HCPCS: 36415; 80048; 81001; 85027; 85610; 85730; 93005

== ENCOUNTER 2017-02-25 05:41 | Day surgery (SDC) | payer MEDICARE, BC ==
[~2017-02-25] VITALS: Ht 175.3 cm; Wt 68.5 kg
[~2017-02-25 05:41] MED LIST changes: -APIX5TAB PO; -COMMODE 3-IN-11 MIS; -DOCU100C PO; -FERR325T20 PO; -HYDR-3516 PO; -METO50TA11 PO; -NORC5TAB PO; -PANT40TA3 PO; -POLY17S PO; -WHEEMIS3; -[UNRECOGNIZED DRUG - OTHER]
[2017-02-25] MEDS ORDERED: ceFAZolin 2 GM PREMIX 50 ML IV SCH (06:00)
[2017-02-25] MEDS ORDERED: CHLORHEXIDINE GLUCONATE 4% SOLN 120 ML BTL TOPICAL SCH (06:00)
[2017-02-25] MEDS ORDERED: EXPAREL PERI-ARTICULAR INJECTION (TOTAL VOL. 100 ML) P-ARTICULR SCH ×2 (06:00)
[2017-02-25] MEDS ORDERED: TRANEXAMIC ACID INJ 685 MG in SODIUM CHLORIDE 0.9% INJ 100 ML IV SCH ×4 (06:00)
[2017-02-25] MEDS ORDERED: METOPROLOL TARTRATE 25 MG TAB PO PRN (06:15)
[2017-02-25] MEDS ORDERED: POVIDONE IODINE 5% (ANTISEPSIS KIT) 4 APPLICATIONS EACH NARE PRN (06:15)
[2017-02-25] MEDS ORDERED: CHLORHEXIDINE GLUCONATE 2 % 1 PACK (2 CLOTHS) TOPICAL PRN (06:15)
[2017-02-25] MEDS ORDERED: INSULIN HUMAN REGULAR 1,000 UNITS/10 ML VIAL SQ PRN (06:15)
[2017-02-25] MEDS ORDERED: LACTATED RINGER'S 1000 ML IV PRN (06:15)
[2017-02-25] MEDS ORDERED: SODIUM CHLORID 0.9% 500 ML IV PRN (06:15)
[2017-02-25 06:51] VITALS: BP 134/61; PULSE 70; RESP 18; TEMP 97.6; O2SAT 99
[2017-02-25] MEDS ORDERED: GENTAMICIN SULFATE 80 MG/2 ML VIAL ONE (07:02)
[2017-02-25 07:22] LABS: INTERNATIONAL NORMALIZED RATIO 1.6 RATIO
[2017-03-13] MEDS ORDERED: COMMODE 3-IN-11 MIS (14:13)
[2017-03-13] MEDS ORDERED: WHEEMIS3 (14:13)
[2017-03-13] MEDS ORDERED: [UNRECOGNIZED DRUG - OTHER] (14:14)
[2017-03-18] MEDS ORDERED: PRAV40TA2 PO (09:35)
[2017-03-18] MEDS ORDERED: PANT40TA3 PO (09:35)
[2017-03-18] MEDS ORDERED: POLY17S PO (09:35)
[2017-03-18] MEDS ORDERED: TAMS0.4C4 PO (09:35)
[2017-03-18] MEDS ORDERED: FINA5TAB2 PO (09:35)
[2017-03-18] MEDS ORDERED: APIX5TAB PO (09:35)
[2017-03-18] MEDS ORDERED: FERR325T20 PO (09:35)
[2017-03-18] MEDS ORDERED: MULT1TAB PO (09:35)
[2017-03-18] MEDS ORDERED: CHOL1CAP6 PO (09:35)
[2017-03-18] MEDS ORDERED: ASCO100016 PO (09:35)
[2017-03-18] MEDS ORDERED: SYMB80AE INH (09:35)
[2017-03-18] MEDS ORDERED: HYDR-3516 PO (09:35)
[2017-03-18] MEDS ORDERED: AMLO10TA2 PO (09:35)
== END 2017-02-25 08:42 | disposition home or self-care (01) ==
LOC: HSDC 05:41 → UNDOADMIN 05:41 → HSDI 05:41 → EDSTATUS 08:30 → UNDODISIN 08:42 → HSDC 08:42
PROVIDERS: ATTEND Orthopaedic Surgery
DX: M17.11 Unilateral primary osteoarthritis, right knee (principal); R79.89 Other specified abnormal findings of blood chemistry; I48.91 Unspecified atrial fibrillation; Z53.09 Procedure and treatment not carried out because of other contraindication
CPT/HCPCS: 85610; 86850; 86900; 86901; G0463; J7120; 99211; J1580

== ENCOUNTER 2017-03-03 05:02 | Inpatient (IN) | payer MEDICARE, BC ==
[~2017-03-03] VITALS: Ht 175.3 cm; Wt 91.2 kg
[2017-03-03] MEDS ORDERED: ceFAZolin 2 GM PREMIX 50 ML IV SCH (05:30)
[2017-03-03] MEDS ORDERED: CHLORHEXIDINE GLUCONATE 2 % 1 PACK (2 CLOTHS) TOPICAL PRN (05:30)
[2017-03-03] MEDS ORDERED: LACTATED RINGER'S 1000 ML IV PRN (05:30)
[2017-03-03] MEDS ORDERED: POVIDONE IODINE 5% (ANTISEPSIS KIT) 4 APPLICATIONS EACH NARE PRN (05:30)
[2017-03-03] MEDS ORDERED: SODIUM CHLORID 0.9% 500 ML IV PRN (05:30)
[2017-03-03] MEDS ORDERED: INSULIN HUMAN REGULAR 1,000 UNITS/10 ML VIAL SQ PRN (05:30)
[2017-03-03] MEDS ORDERED: METOPROLOL TARTRATE 25 MG TAB PO PRN (05:30)
[2017-03-03] MEDS ORDERED: CHLORHEXIDINE GLUCONATE 4% SOLN 120 ML BTL TOPICAL SCH (05:30)
[2017-03-03] MEDS ORDERED: APIX5TAB PO (05:50)
[2017-03-03] MEDS ORDERED: TRANEXAMIC ACID INJ 670 MG in SODIUM CHLORIDE 0.9% INJ 100 ML IV SCH ×2 (06:00→09:00)
[2017-03-03] MEDS ORDERED: EXPAREL PERI-ARTICULAR INJECTION (TOTAL VOL. 100 ML) P-ARTICULR SCH ×2 (06:00)
[2017-03-03] MEDS ORDERED: GENTAMICIN SULFATE 80 MG/2 ML VIAL ONE (06:08)
[2017-03-03 06:16] LABS: INTERNATIONAL NORMALIZED RATIO 1.1 RATIO; PROTHROMBIN TIME - PATIENT 11.8 SEC (9.8-11.6)
[2017-03-03] MEDS ORDERED: TRANEXAMIC ACID INJ 0 MG in SODIUM CHLORIDE 0.9% INJ 100 ML IV SCH (07:00)
[2017-03-03] MEDS ORDERED: MORPHINE SULFATE 4 MG/ML INJ IV PUSH PRN (07:00)
[2017-03-03] MEDS ORDERED: MAGNESIUM HYDROXIDE SUSP 30 ML CUP PO PRN (07:00)
[2017-03-03] MEDS ORDERED: ACETAMINOPHEN/HYDROcodone 325 MG/7.5 MG TAB PO PRN ×2 (07:00)
[2017-03-03] MEDS ORDERED: KETOROLAC TROMETHAMINE 30 MG/ML (IVP) VIAL IVP SCH (07:00)
[2017-03-03] MEDS ORDERED: ONDANSETRON HCL 4 MG/2 ML VIAL IVP PRN (07:00)
[2017-03-03] MEDS ORDERED: Post-op Orders (for Pharmacy) MISC XX ONE (07:00)
[2017-03-03] MEDS ORDERED: SODIUM CHLORIDE 0.9% FLUSH 5 ML FLUSH IVF PRN (07:00)
[2017-03-03] MEDS ORDERED: BUPIVACAINE HCL PF 0.5% 30 ML VIAL NERV BLOCK ONE (08:16)
--- NOTE | 2017-03-03 08:52 | HHI.FF ---
Face to Face Verification Diagnosis: (1) Status post total right knee replacement Physical Therapy Gait training Knee: Total knee, Protocol: Right, Gait training, Full weight bearing Right LE Weight Bearing: WB as tolerated Right LE Range of Motion: Active ROM (AROM, AAROM, PROM, PRE. ROM goal is 0 to 140 degrees. ROM in the OR was 0 to 150 degrees.) Nursing Nursing: Dressing changes Dressing Changes: Daily dressing change, Coverderm/Primapore Additional Instructions Remove steristrips on postop day 14. I have seen patient Kael Trevizo on 03/03/17. My clinical findings support the need for the requested home health care services because: Ltd mobility - disease progression Deconditioned w/ increased weakness Limited ability to care for self High risk of falls I certify that my clinical findings support that this patient is homebound because: Post-op weakness Unsteady gait/balance Unsafe to leave home unassisted Adrienne Rodrigez MD ([place]) Mar 03, 2017 08:52
[2017-03-03] MEDS: SODIUM CHLORIDE 0.9% FLUSH 5 ML FLUSH IVF SCH ×2 (09:00→21:00)
[2017-03-03] MEDS ORDERED: PHENYLEPH/NS 1000 MCG/10 ML SYR IV ONE (09:13)
[2017-03-03] MEDS ORDERED: ONDANSETRON HCL 4 MG/2 ML VIAL IV PUSH ONE (09:13)
[2017-03-03] MEDS ORDERED: PROPOFOL 200 MG/20 ML AMP IV ONE (09:13)
[2017-03-03] MEDS ORDERED: DO NOT ADM ANY ANTICOAGULANT DRUGS PRN (09:18)
[2017-03-03] MEDS: LACTATED RINGER'S 1000 ML INJ 1,000 ML IV SCH ×2 (09:35→18:45)
[2017-03-03] MEDS: MULTIVITAMINS/MINERALS THERAPEUTIC TAB PO SCH (10:45)
[2017-03-03] MEDS: CHOLECALCIFEROL (VIT D3) 1000 UNIT TAB PO SCH (10:45)
[2017-03-03] MEDS: BUDESONIDE-FORMOTEROL 80/4.5 MCG INHALER INH SCH ×2 (10:45→21:22)
[2017-03-03] MEDS: ASCORBIC ACID 500 MG TAB PO SCH (10:45)
[2017-03-03] MEDS: KETOROLAC TROMETHAMINE 30 MG/ML (IVP) VIAL IVP SCH ×3 (13:15→23:34)
--- NOTE | 2017-03-03 13:47 | RADRPT ---
EXAM DATE/TIME: 03/03/2017 10:07 [facility] COMPARISON: No previous studies available for comparison. INDICATIONS : Post op right knee surgery. MEDICAL HISTORY : None. SURGICAL HISTORY : None. ENCOUNTER: Initial ACUITY: 1 day PAIN SCORE: 0/10 LOCATION: Right knee FINDINGS: 2 views of the knee show a total knee prosthesis in good position. No fracture or dislocation is obse rved. Soft tissue swelling is noted. Surgical drain seen. Atherosclerotic calcifications involving th e popliteal artery and trifurcation vessels. CONCLUSION: Total knee arthroplasty in good position. Jim Posey Jr., MD on March 03, 2017 at 13:43 Board Certified Radiologist. This report was verified electronically.
[2017-03-03 16:45] VITALS: BP 131/62; PULSE 70; RESP 18; TEMP 97.1; O2SAT 96
--- NOTE | 2017-03-03 18:07 | PD.CONS ---
HPI Service [facility] Hospitalists Consult Requested By Mariano Rodrigez M.D. Reason for Consult Medical management Primary Care Physician Bernabe Kemp MD Diagnoses: History of Present Illness Written by Marco Gandara PA-C, acting as scribe for Dr. Byron Hernandez on 03/03/17 at 17:38. Mr. 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 Between his service in the and as a senior quality technician he denies posttraumatic stress disorder. For several years, Mr. Trevizo has been having right knee pain. The pain has been significant enough to impede his ambulation. He underwent total right knee arthroplasty by Dr. Rodrigez on 03/03/17. The Hospitalist team was consulted to address medical management for Mr. Trevizo. At time of interview, Mr. Trevizo denied significant pain in the right knee. He denied cough, shortness of breath, sore throat, nausea and vomiting, diarrhea, bloody urine or stool. He did endorse having difficulty urinating after surgery and this required him to be straight cathed. A 10 point review of systems was completed, and except as noted above, was negative. 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 coronary artery disease GERD hyperlipidemia hypertension Past Surgical History Bilateral cataract Total left knee arthroplasty 2000 Pacemaker implantation Quadruple bypass 2007 Reported Medications Reported Meds & Active Scripts Active Reported Eliquis (Apixaban) 5 Mg Tab 5 Mg PO BID Prilosec (Omeprazole Magnesium) 20 Mg Tab 0.5 Tab PO PRN Centrum Silver Adult 50+ (Multiple Vitamins W/ Minerals) 1 Tab Tab 1 Tab PO DAILY Vitamin D-3 (Cholecalciferol) 1,000 Unit Cap 1 Cap PO DAILY Vitamin C (Ascorbic Acid) 1,000 Mg Tablet.er 1 Tab PO DAILY Symbicort Inh (Budesonide/Formoterol Fumarate) 80-4.5 Mcg/Act Aero 2 Puff INH Q12HR Lisinopril 20 Mg Tab 20 Mg PO HS Tamsulosin (Tamsulosin HCl) 0.4 Mg Cap 0.4 Mg PO HS Pravastatin 40 Mg Tab 40 Mg PO HS Finasteride 5 Mg Tab 5 Mg PO HS Do not crush. Warfarin 2 Mg Tab 2 Mg PO HS Amlodipine (Amlodipine Besylate) 10 Mg Tab 10 Mg PO HS Active Ordered Medications Current Medications Medications (Trade) Dose Ordered Sig/Brandon Route Start Time Stop Time Status Last Admin (Hibiclens 4% Top Soln) 1 applic ONCE TOPICAL 03/03/17 05:30 03/06/17 05:29 03/02/17 05:45 Cefazolin Sodium/ Dextrose 50 ml @ 100 mls/hr MEASURING CLERK IV 03/03/17 05:30 03/06/17 05:29 03/03/17 07:07 Tranexamic Acid 670 mg/Sodium Chloride 106.7 ml @ 200 mls/hr ONCE IV 03/03/17 06:00 03/04/17 05:59 03/03/17 07:12 Lactated Ringer's 1,000 ml @ 30 mls/hr Q24H PRN IV 03/03/17 05:30 03/06/17 05:29 03/03/17 05:30 Sodium Chloride 500 ml @ 30 mls/hr [id number] PRN IV 03/03/17 05:30 03/06/17 05:29 (Lopressor) 25 mg MEASURING CLERK PRN PO 03/03/17 05:30 03/06/17 05:29 (Betadine 5% Antisepsis Kit) 1 applic MEASURING CLERK PRN EACH NARE 03/03/17 05:30 03/06/17 05:29 03/03/17 06:07 (Chlorhexidine 2% Cloth) 3 pack MEASURING CLERK PRN TOPICAL 03/03/17 05:30 03/06/17 05:29 03/03/17 05:30 (NovoLIN R INJ) See Protocol Table ... MEASURING CLERK PRN SQ 03/03/17 05:30 03/06/17 05:29 Lactated Ringer's 1,000 ml @ 80 mls/hr [id number] IV 03/03/17 06:51 03/03/17 09:35 (NS Flush) 2 ml UNSCH PRN IVF 03/03/17 07:00 (NS Flush) 2 ml BID IVF 03/03/17 09:00 Cefazolin Sodium 1000 mg/Sodium Chloride 100 ml @ 200 mls/hr Q6H IV 03/03/17 13:00 03/04/17 01:29 03/03/17 13:05 (Morphine Inj) 4 mg Q3H PRN IV PUSH 03/03/17 07:00 ([place] 7.5-325 Mg) 1 tab Q4H PRN PO 03/03/17 07:00 ([place] 7.5-325 Mg) 2 tab Q4H PRN PO 03/03/17 07:00 (Zofran Inj) 4 mg Q6H PRN IVP 03/03/17 07:00 (Colace) 100 mg BID PO 03/04/17 21:00 (Ambien) 5 mg HS PRN PO 03/03/17 21:00 (Milk Of Magnesia Liq) 30 ml DAILY PRN PO 03/03/17 07:00 (Ecotrin Ec) 81 mg BID PO 03/04/17 08:00 (Norvasc) 10 mg HS PO 03/03/17 21:00 (Eliquis) 5 mg BID PO 03/04/17 08:00 (Symbicort 80-4.5 Mcg Inh) 2 puff Q12HR INH 03/03/17 10:45 (Proscar) 5 mg HS PO 03/03/17 21:00 (Prinivil) 20 mg HS PO 03/03/17 21:00 (Pravachol) 40 mg HS PO 03/03/17 21:00 (Flomax) 0.4 mg HS PO 03/03/17 21:00 (Vitamin C) 1,000 mg DAILY PO 03/03/17 10:45 (Vitamin D3) 1,000 units DAILY PO 03/03/17 10:45 (Theragran M Tab) 1 tab DAILY PO 03/03/17 10:45 Miscellaneous Information ALL NURSING DEPARTME... UNSCH PRN .XX 03/03/17 09:18 03/04/17 09:17 (Toradol Inj) 15 mg Q6H IVP 03/03/17 13:00 03/05/17 07:01 03/03/17 13:15 Family History Mother diabetes at age 62 Father of old age 2 sisters in their 70s cause unknown Patient denied family history of cancer Social History Patient smoked cigarettes for 3 years while in the [place] Alcohol use reported on the weekends only. Patient reported drinking approximately 8 beers a weekend as well as 2-3 glasses of wine. Illicit/recreational drug usage denied. Physical Exam Vital Signs Vital Signs Date Time Temp Pulse Resp B/P (MAP) Pulse Ox O2 Delivery O2 Flow Rate FiO2 03/03/17 16:40 98.1 69 18 123/59 (80) 99 Room Air 03/03/17 16:00 70 18 120/62 (81) 98 Room Air 03/03/17 15:08 69 18 121/60 (80) 98 Room Air 03/03/17 14:30 69 17 155/67 (96) 99 Room Air 03/03/17 13:30 70 18 141/65 (90) 99 Room Air 03/03/17 12:30 73 18 163/64 (97) 99 Room Air 03/03/17 11:30 71 18 164/69 (100) 99 Room Air 03/03/17 11:00 69 18 167/70 (102) 99 Room Air 03/03/17 10:30 70 18 149/67 (94) 98 Room Air 03/03/17 10:15 69 16 133/64 (87) 99 Room Air 03/03/17 10:00 72 16 130/60 (83) 99 Room Air 03/03/17 09:45 69 17 136/61 (86) 99 Room Air 03/03/17 09:30 75 17 121/65 (83) 99 Room Air 03/03/17 09:12 97.5 70 17 139/63 (88) 99 Room Air 03/03/17 06:00 97.5 72 16 112/58 (76) 100 Physical Exam GENERAL: This is a well-nourished, well-developed patient, in no apparent distress. SKIN: No rashes, ecchymoses or lesions. Cool and dry. pace maker noted right upper chest. HEAD: Atraumatic. Normocephalic. EYES: Pupils equal round and reactive. Extraocular motions intact. No scleral icterus. No injection or drainage. ENT: Nose without bleeding or purulent drainage or septal hematoma. Airway patent. NECK: Trachea midline. No lymphadenopathy. Supple and nontender. CARDIOVASCULAR: Regular rate and rhythm without murmurs, gallops, or rubs. RESPIRATORY: Clear to auscultation. Breath sounds equal bilaterally. No wheezes , rales, or rhonchi. GASTROINTESTINAL: Abdomen soft, non-tender, nondistended. No hepato-splenomegaly , or guarding. MUSCULOSKELETAL: Extremities without clubbing, cyanosis, or edema. No joint tenderness, effusion, or edema noted. NEUROLOGICAL: Awake and alert. Cranial nerves II through XII intact. Motor and sensory grossly within normal limits. Five out of 5 muscle strength in all muscle groups, except right lower extremity which was not examined due to recent surgery. Speech was clear and fluent. Laboratory Laboratory Tests Test 03/03/17 05:40 Prothrombin Time 11.8 Prothromb Time International Ratio 1.1 Imaging Last Impressions Knee X-Ray 03/03/17 0651 Signed Impressions: Service Date/Time: Friday, March 03, 2017 10:07 - CONCLUSION: Total knee arthroplasty in good position. Jim Posey Jr., MD Assessment and Plan Assessment and Plan Mr. 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 For several years, Mr. Trevizo has been having right knee pain. The pain has been significant enough to impede his ambulation. He underwent total right knee arthroplasty by Dr. Rodrigez on 03/03/17. S/P right total knee arthroplasty -Rehabilitation per orthopedics -Pain management per orthopedics Hypertension -Continue home regimen lisinopril 20 mg and amlodipine 10 mg GERD -continue Prilosec 20 mg Hyperlipidemia -Pravastatin 40 mg Diet: basic DVT prophylaxis: -SCD's -Pharmacological anticoagulant therapy to be initiated once cleared by surgery. BPH: -Finasteride 5 mg and tamsulosin 0.4 mg Atrial fibrillation -Apixaban 5 mg and warfarin 2 mg -The above to be restarted when cleared by surgery. The exam, history, and the medical decision-making described in the above note were completed with the assistance of the mid-level provider. I reviewed and agree with the findings presented. I attest that I had a [id number] encounter with the patient on the same day, and personally performed and documented my assessment and findings in the medical record. Discussed Condition With Discussed with patient. Marco Gandara Jr. Mar 03, 2017 18:07 Lalit Vides MD Mar 04, 2017 08:17
[2017-03-03 20:30] VITALS: BP 118/60; PULSE 70; RESP 16; TEMP 96.3; O2SAT 99
[2017-03-03] MEDS ORDERED: PRAVASTATIN SOD 40 MG TAB PO SCH (21:00)
[2017-03-03] MEDS ORDERED: FINASTERIDE 5 MG TAB PO SCH (21:00)
[2017-03-03] MEDS ORDERED: ZOLPIDEM TARTRATE 5 MG TAB PO PRN (21:00)
[2017-03-03] MEDS ORDERED: LISINOPRIL 20 MG TAB PO SCH (21:00)
[2017-03-03] MEDS ORDERED: TAMSULOSIN HCL 0.4 MG CAP PO SCH (21:00)
[2017-03-04 00:35] VITALS: BP 107/53; PULSE 72; RESP 16; TEMP 97.5; O2SAT 96
[2017-03-04 04:45] VITALS: BP 116/57; PULSE 71; RESP 16; TEMP 96.9; O2SAT 96
[2017-03-04] MEDS: KETOROLAC TROMETHAMINE 30 MG/ML (IVP) VIAL IVP SCH (06:04)
[2017-03-04 06:06] LABS: HEMATOCRIT 26.5 % (39.0-51.0); REVIEW FLAG FINAL
[2017-03-04 06:38] LABS: BICARBONATE 26.5 MEQ/L (21.0-32.0); MAGNESIUM 1.5 MG/DL (1.5-2.5); POTASSIUM 4.3 MEQ/L (3.5-5.1)
[2017-03-04 08:00] VITALS: BP 127/69; PULSE 71; RESP 18; TEMP 96.7; O2SAT 99
[2017-03-04] MEDS ORDERED: ASPIRIN EC 81 MG TABEC PO SCH (08:00)
[2017-03-04] MEDS ORDERED: APIXABAN 5 MG TABLET PO SCH (08:00)
[2017-03-04] MEDS: SODIUM CHLORIDE 0.9% FLUSH 5 ML FLUSH IVF SCH (08:02)
[2017-03-04] MEDS: MULTIVITAMINS/MINERALS THERAPEUTIC TAB PO SCH (08:02)
[2017-03-04] MEDS: LACTATED RINGER'S 1000 ML INJ 1,000 ML IV SCH (08:03)
[2017-03-04] MEDS: ASCORBIC ACID 500 MG TAB PO SCH (08:06)
[2017-03-04] MEDS: CHOLECALCIFEROL (VIT D3) 1000 UNIT TAB PO SCH (08:06)
--- NOTE | 2017-03-04 08:26 | PD.ORT.PN ---
Subjective Post Op Day #: 1 Subjective Remarks He is doing well with almost no pain. He has been OOB walking without difficulty. Range of Motion -20 to 90 degrees. Distance Walked 25 feet twice. Objective Vitals Vital Signs Date Time Temp Pulse Resp B/P (MAP) Pulse Ox O2 Delivery O2 Flow Rate FiO2 03/04/17 04:45 96.9 71 16 116/57 (76) 96 03/04/17 00:35 97.5 72 16 107/53 (71) 96 03/03/17 20:30 96.3 70 16 118/60 (79) 99 03/03/17 16:45 97.1 70 18 131/62 (85) 96 03/03/17 16:40 98.1 69 18 123/59 (80) 99 Room Air 03/03/17 16:00 70 18 120/62 (81) 98 Room Air 03/03/17 15:08 69 18 121/60 (80) 98 Room Air 03/03/17 14:30 69 17 155/67 (96) 99 Room Air 03/03/17 13:30 70 18 141/65 (90) 99 Room Air 03/03/17 12:30 73 18 163/64 (97) 99 Room Air 03/03/17 11:30 71 18 164/69 (100) 99 Room Air 03/03/17 11:00 69 18 167/70 (102) 99 Room Air 03/03/17 10:30 70 18 149/67 (94) 98 Room Air 03/03/17 10:15 69 16 133/64 (87) 99 Room Air 03/03/17 10:00 72 16 130/60 (83) 99 Room Air 03/03/17 09:45 69 17 136/61 (86) 99 Room Air 03/03/17 09:30 75 17 121/65 (83) 99 Room Air 03/03/17 09:12 97.5 70 17 139/63 (88) 99 Room Air I/O 03/03/17 03/03/17 03/03/17 03/04/17 03/04/17 03/04/17 07:00 15:00 23:00 07:00 15:00 23:00 Intake Total 2200 ml 1180 ml 220 ml Output Total 800 ml 410 ml 430 ml Balance 1400 ml 770 ml -210 ml Intake Oral 540 ml 120 ml IV Total 1200 ml 640 ml 100 ml Other 1000 ml Output Urine Total 500 ml 400 ml 400 ml Drainage Total 10 ml 30 ml Estimated Blood Loss 300 ml # Voids 0 # Bowel Movements 0 0 Result Diagram: 03/04/17 0535 03/04/17 0535 Imaging Last 72 hours Impressions Knee X-Ray 03/03/17 0651 Signed Impressions: Service Date/Time: Friday, March 03, 2017 10:07 - CONCLUSION: Total knee arthroplasty in good position. Jim Posey Jr., MD Objective Remarks He is sitting OOB in chair, comfortably. The dressing is dry and intact. The neurovascular status is intact. Assessment & Plan Ortho Post Op Day #: 1 Problem List: (1) Status post total right knee replacement ICD Codes: Z96.651 - Presence of right artificial knee joint Status: Acute Plan: Continue postop care and PT. Assessment and Plan Condition: Good. Orthopaedically stable. DVT prophylaxis: TEDs, Eliquis resumption, sequentials. Discharge plans: Home with [facility] versus [facility] Has appointment. Adrienne Rodrigez MD ([place]) Mar 04, 2017 08:26
--- NOTE | 2017-03-04 08:49 | HHI.PR ---
Subjective Remarks This is a pleasant 86 y/o male with BPH, CAD, atrial Fibrillation, Hyperlipidemia, Hypertension, GERD, with status post Surgery Total Right knee arthroplasty, today will be discharge by her Primary Orthopedic Surgeon Objective Vital Signs Date Time Temp Pulse Resp B/P (MAP) Pulse Ox O2 Delivery O2 Flow Rate FiO2 03/04/17 04:45 96.9 71 16 116/57 (76) 96 03/04/17 00:35 97.5 72 16 107/53 (71) 96 03/03/17 20:30 96.3 70 16 118/60 (79) 99 03/03/17 16:45 97.1 70 18 131/62 (85) 96 03/03/17 16:40 98.1 69 18 123/59 (80) 99 Room Air 03/03/17 16:00 70 18 120/62 (81) 98 Room Air 03/03/17 15:08 69 18 121/60 (80) 98 Room Air 03/03/17 14:30 69 17 155/67 (96) 99 Room Air 03/03/17 13:30 70 18 141/65 (90) 99 Room Air 03/03/17 12:30 73 18 163/64 (97) 99 Room Air 03/03/17 11:30 71 18 164/69 (100) 99 Room Air 03/03/17 11:00 69 18 167/70 (102) 99 Room Air 03/03/17 10:30 70 18 149/67 (94) 98 Room Air 03/03/17 10:15 69 16 133/64 (87) 99 Room Air 03/03/17 10:00 72 16 130/60 (83) 99 Room Air 03/03/17 09:45 69 17 136/61 (86) 99 Room Air 03/03/17 09:30 75 17 121/65 (83) 99 Room Air 03/03/17 09:12 97.5 70 17 139/63 (88) 99 Room Air I/O 03/03/17 03/03/17 03/03/17 03/04/17 03/04/17 03/04/17 07:00 15:00 23:00 07:00 15:00 23:00 Intake Total 2200 ml 1180 ml 220 ml Output Total 800 ml 410 ml 430 ml Balance 1400 ml 770 ml -210 ml Intake Oral 540 ml 120 ml IV Total 1200 ml 640 ml 100 ml Other 1000 ml Output Urine Total 500 ml 400 ml 400 ml Drainage Total 10 ml 30 ml Estimated Blood Loss 300 ml # Voids 0 # Bowel Movements 0 0 Result Diagram: 03/04/17 0535 03/04/17 0535 Imaging Last Impressions Knee X-Ray 03/03/17 0651 Signed Impressions: Service Date/Time: Friday, March 03, 2017 10:07 - CONCLUSION: Total knee arthroplasty in good position. Jim Posey Jr., MD Procedures Total Right Knee Arthroplasty. 03/03/17 Other Results Laboratory Tests Test 03/03/17 05:40 03/04/17 05:35 Prothrombin Time 11.8 SEC Prothromb Time International Ratio 1.1 RATIO Hemoglobin 9.0 GM/DL Hematocrit 26.5 % Blood Urea Nitrogen 14 MG/DL Creatinine 0.82 MG/DL Random Glucose 89 MG/DL Calcium Level 8.3 MG/DL Magnesium Level 1.5 MG/DL Sodium Level 139 MEQ/L Potassium Level 4.3 MEQ/L Chloride Level 105 MEQ/L Carbon Dioxide Level 26.5 MEQ/L Anion Gap 8 MEQ/L Estimat Glomerular Filtration Rate 89 ML/MIN Objective Remarks GENERAL: This is a well-nourished, well-developed patient, in no apparent distress. SKIN: No rashes, ecchymoses or lesions. Cool and dry. pace maker noted right upper chest. HEAD: Atraumatic. Normocephalic. EYES: Pupils equal round and reactive. Extraocular motions intact. No scleral icterus. No injection or drainage. ENT: Nose without bleeding or purulent drainage or septal hematoma. Airway patent. NECK: Trachea midline. No lymphadenopathy. Supple and nontender. CARDIOVASCULAR: Regular rate and rhythm without murmurs, gallops, or rubs. RESPIRATORY: Clear to auscultation. Breath sounds equal bilaterally. No wheezes , rales, or rhonchi. GASTROINTESTINAL: Abdomen soft, non-tender, nondistended. No hepato-splenomegaly , or guarding. MUSCULOSKELETAL: Extremities without clubbing, cyanosis, or edema. No joint tenderness, effusion, or edema noted. NEUROLOGICAL: Awake and alert. No focal Deficits. Medications and IVs Current Medications Medications (Trade) Dose Ordered Sig/Brandon Route Start Time Stop Time Status Last Admin (Hibiclens 4% Top Soln) 1 applic ONCE TOPICAL 03/03/17 05:30 03/06/17 05:29 03/02/17 05:45 Cefazolin Sodium/ Dextrose 50 ml @ 100 mls/hr SELF PAY SPECIALIST IV 03/03/17 05:30 03/06/17 05:29 03/03/17 07:07 Lactated Ringer's 1,000 ml @ 30 mls/hr Q24H PRN IV 03/03/17 05:30 03/06/17 05:29 03/03/17 05:30 Sodium Chloride 500 ml @ 30 mls/hr [id number] PRN IV 03/03/17 05:30 03/06/17 05:29 (Lopressor) 25 mg SELF PAY SPECIALIST PRN PO 03/03/17 05:30 03/06/17 05:29 (Betadine 5% Antisepsis Kit) 1 applic SELF PAY SPECIALIST PRN EACH NARE 03/03/17 05:30 03/06/17 05:29 03/03/17 06:07 (Chlorhexidine 2% Cloth) 3 pack SELF PAY SPECIALIST PRN TOPICAL 03/03/17 05:30 03/06/17 05:29 03/03/17 05:30 (NovoLIN R INJ) See Protocol Table ... SELF PAY SPECIALIST PRN SQ 03/03/17 05:30 03/06/17 05:29 Lactated Ringer's 1,000 ml @ 80 mls/hr [id number] IV 03/03/17 06:51 03/04/17 08:03 (NS Flush) 2 ml UNSCH PRN IVF 03/03/17 07:00 (NS Flush) 2 ml BID IVF 03/03/17 09:00 03/04/17 08:02 (Morphine Inj) 4 mg Q3H PRN IV PUSH 03/03/17 07:00 ([place] 7.5-325 Mg) 1 tab Q4H PRN PO 03/03/17 07:00 03/04/17 00:03 ([place] 7.5-325 Mg) 2 tab Q4H PRN PO 03/03/17 07:00 (Zofran Inj) 4 mg Q6H PRN IVP 03/03/17 07:00 (Colace) 100 mg BID PO 03/04/17 21:00 (Ambien) 5 mg HS PRN PO 03/03/17 21:00 (Milk Of Magnshe Liq) 30 ml DAILY PRN PO 03/03/17 07:00 (Ecotrin Ec) 81 mg BID PO 03/04/17 08:00 (Norvasc) 10 mg HS PO 03/03/17 21:00 (Eliquis) 5 mg BID PO 03/04/17 08:00 03/04/17 08:02 (Symbicort 80-4.5 Mcg Inh) 2 puff Q12HR INH 03/03/17 10:45 (Proscar) 5 mg HS PO 03/03/17 21:00 03/03/17 21:13 (Prinivil) 20 mg HS PO 03/03/17 21:00 (Pravachol) 40 mg HS PO 03/03/17 21:00 03/03/17 21:13 (Flomax) 0.4 mg HS PO 03/03/17 21:00 03/03/17 21:13 (Vitamin C) 1,000 mg DAILY PO 03/03/17 10:45 03/04/17 08:06 (Vitamin D3) 1,000 units DAILY PO 03/03/17 10:45 03/04/17 08:06 (Theragran M Tab) 1 tab DAILY PO 03/03/17 10:45 03/04/17 08:02 Miscellaneous Information ALL NURSING DEPARTME... UNSCH PRN .XX 03/03/17 09:18 03/04/17 09:17 (Toradol Inj) 15 mg Q6H IVP 03/03/17 13:00 03/05/17 07:01 03/04/17 06:04 A/P Assessment and Plan Mr. 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 Between his service in the and as a field adjuster he denies posttraumatic stress disorder. For several years, Mr. Trevizo has been having right knee pain. The pain has been significant enough to impede his ambulation. He underwent total right knee arthroplasty by Dr. Rodrigez on 03/03/17. S/P right total knee arthroplasty -Rehabilitation per orthopedics -Pain management per orthopedics Hypertension -Continue home regimen lisinopril 20 mg and amlodipine 10 mg GERD -continue Prilosec 20 mg Hyperlipidemia -Pravastatin 40 mg Diet: basic DVT prophylaxis: -SCD's -Pharmacological anticoagulant therapy to be initiated once cleared by surgery. BPH: -Finasteride 5 mg and tamsulosin 0.4 mg Atrial fibrillation -Apixaban 5 mg and warfarin 2 mg -The above to be restarted when cleared by surgery. Okay to discharge by Orthopedic surgery DVT prophylaxis as per Orthopedic Surgery. Discharge Planning clear for discharge by Medicine. Lalit Vides MD Mar 04, 2017 08:49
[2017-03-04] MEDS: BUDESONIDE-FORMOTEROL 80/4.5 MCG INHALER INH SCH (09:00)
[2017-03-04] MEDS ORDERED: NORC5TAB PO (11:20)
[2017-03-04 12:00] VITALS: BP 123/71; PULSE 88; RESP 18; TEMP 97; O2SAT 100
--- NOTE | 2017-03-04 13:37 | MP ---
cc: Rebeca CURRAN. DATE OF SURGERY: 03/03/2017 PREOPERATIVE DIAGNOSIS Primary osteoarthritis, right knee. POSTOPERATIVE DIAGNOSIS Primary osteoarthritis, right knee. OPERATION PERFORMED Right total knee arthroplasty with Tracy Triathlon prosthesis (uncemented). SURGEON Adrienne Curran MD. SURVEYOR CHAIN HELPER VIKAS Hancock. ANESTHESIA Spinal with supplemental adductor canal block by Navid Bradshaw MD. INDICATIONS AND FINDINGS This 86-year-old man has at least a four-year history of right knee pain that has progressively worsened over the past several months. His ambulation tolerance is about 20 minutes with a cane. He has stiffness in the joint on motion. He has difficulty standing from a seated position and increased pain on activities of daily living. He has been treated with analgesics, but cannot take anti-inflammatory agents because of anticoagulation. He has been doing some exercise but is diminished in some of his activities. He has also had physical therapy and ambulatory aids. Physical findings showed genu valgum with some lateral laxity and crepitation on motion. X-rays showed severe arthritis particularly in the lateral compartment but also medial and patellofemoral with loss of articular cartilage to [id number] in the lateral compartment. Operative findings were consistent with the radiographic findings with there being significant degenerative change in the lateral compartment down to [id number] with there being changes in the medial and patellofemoral compartments as well. There is additionally some calcific change or crystallin change that could be from gout or pseudogout, probably the former. PROCEDURE The patient was brought to the clean-air operating suite and a spinal anesthetic was administered. He also received an adductor canal block regional. He received prophylactic antibiotics in the form of Ancef and also received tranexamic acid. He was positioned in the supine position with a small bolster under the right hip and a pneumatic tourniquet about the right thigh. The limb was then prepped with alcohol and Hibiclens and ChloraPrep and draped in the usual manner with the knee draped free. An appropriate timeout procedure was carried out. Local anesthesia was administered into the incision site prior to making the incision. The incision was then made from about three fingerbreadths above the superior medial pole of the patella down to the tibial tubercle on the medial side. The incision was deepened through subcutaneous tissues to the retinacular structures which were exposed medially and laterally. A medial retinacular incision was then made from the superior medial pole of the patella down to the tibial tubercle and up into the quadriceps tendon splitting it longitudinally in the medial one-third. The patella was reflected. The infrapatellar fat pad was debulked. Medial and lateral dissection was carried out. The posterior surface of the patella was excised using the oscillating saw taking care to prevent injury to the extensor mechanism. Medial and lateral meniscectomies were initiated. Fenestrations were made in the distal end of the femur and proximal end of the tibia for intermedullary referencing guides. The distal femoral cutting guide and jig were assembled for a 5-degree, 8 mm cut and positioned onto the femur. The cutting block was stabilized with pins. The jig was removed. The distal femoral cut was completed with the oscillating saw. The sizing guide was positioned in place along Travis's line and the epicondylar axis. This was also stabilized with pins. The size of the prosthesis was determined to be a size 6. A four-in-one cutting block was positioned in place. Anterior and posterior cuts were made followed by posterior and anterior chamfer cuts. Osteophytes were trimmed. Attention was then directed to the tibia. Medial and lateral meniscectomies were completed. The proximal tibial cutting guide and jig were assembled and positioned appropriately. The rotational alignment was positioned and stabilized with a pin. The depth of the cut was verified with a stylus off the appropriate side. The cutting block was stabilized with pins. The depth of the cut was verified with the spacer block. The proximal tibial cut was completed with the oscillating saw taking care to prevent injury to neurovascular structures and ligamentous structures. Proximal tibial and distal femoral bone plugs were positioned in place. The tibial baseplate trial was positioned for a size 7. The spacer was positioned in place. The femoral trial which was a size [address] and impacted into place. The rotational alignment of the tibial baseplate was adjusted as was the translational alignment. This was then stabilized with pins. The patella drill guide was positioned in place for the 38 mm patella. Drill holes were made. The trial patella was positioned in place. There was excellent stability at this point. The range of motion was easily 0 degrees extension to 150 degrees of flexion with appropriate tracking of the patella and excellent stability. The patella trial was removed. The femoral drill holes were made. The femoral trial was removed. The tibial spacer was removed. The tibial punch was impacted in place and removed. The tibial drill guide was positioned in place. Drill holes were made. The knee was then anesthetized around the cut surfaces with Exparel. The cut ends of bone were cleaned with pulse lavage. The tibial baseplate was then impacted into place and seated appropriately. The tibial spacer was inserted into the tibial baseplate and impacted into place. The femoral component was then impacted into place and seated appropriately. The patella implant was positioned onto the patella and stabilized with a patella vise. The knee was taken through a range of motion which was easily 0 degrees extension to 150 degrees of flexion. The stability was excellent. Patella tracking was appropriate. Drains were brought out the superolateral aspect of the suprapatellar pouch. The remainder of the Exparel was injected throughout the knee. Wound closure then commenced with 0 Vicryl interrupted [id number] sutures for retinacular and capsular structures, 2-0 Vicryl interrupted simple sutures with buried knots for the subcutaneous tissues and 4-0 Monocryl continuous subcuticular closure for the skin. The wound was then dressed with Steri-Strips followed by dry dressing, sterile Sof-Rol, cooling pad, further sterile Sof-Rol and Kana bandage from the base of the toe to midthigh. The patient was transferred from the operating room to the recovery room in satisfactory condition having tolerated the procedure well. Specimens none. Estimated blood loss 150 mL. Tourniquet time none. MD DIAMANTE Wilkerson/MARIO /8:55 AM /1:15 PM
[2017-03-04] MEDS ORDERED: SENNOSIDES 8.6 MG TAB PO PRN (14:00)
[2017-03-04] MEDS ORDERED: LACTULOSE SYRUP 20 GM/30 ML CUP PO PRN (14:00)
[2017-03-04] MEDS ORDERED: MAGNESIUM HYDROXIDE SUSP 30 ML CUP PO PRN (14:00)
[2017-03-04] MEDS ORDERED: DOCUSATE SODIUM 100 MG CAP PO SCH (21:00)
[2017-03-04] MEDS ORDERED: DOCUSATE SODIUM 50 MG/SENNA 8.6 MG TAB PO SCH (21:00)
[2017-03-05 10:02] LABS: AUTOMATED NEUTROPHIL # 9.1 TH/MM3 (1.8-7.7); BASOPHIL % 0.2 % (0.0-2.0); EOSINOPHIL % 0.1 % (0.0-4.0); HEMATOCRIT 30.4 % (39.0-51.0); LYMPH % 11.8 % (9.0-44.0); LYMPHOCYTE # 1.5 TH/MM3 (1.0-4.8); MEAN CELL VOLUME 95.4 FL (80.0-100.0); MEAN CORPUSCULAR HGB CONC 32.5 % (32.0-36.0); MONO % 18.6 % (0.0-8.0); NEUT % 69.3 % (16.0-70.0); PLATELET COUNT 170 TH/MM3 (150-450); RED BLOOD COUNT 3.19 MIL/MM3 (4.50-5.90); RED CELL DISTRIBUTION WIDTH 15.1 % (11.6-17.2); WHITE BLOOD COUNT 13.1 TH/MM3 (4.0-11.0)
[2017-03-05 10:20] LABS: ANION GAP 8 MEQ/L (5-15); AST (GOT) 18 U/L (15-37); BICARBONATE 24.7 MEQ/L (21.0-32.0); BLOOD UREA NITROGEN 17 MG/DL (7-18); CHLORIDE 101 MEQ/L (98-107); GLOMERULAR FILTRATION RATE 70 ML/MIN (>89); HEMO FLAGS AUTO DIFF; POTASSIUM 4.1 MEQ/L (3.5-5.1); SODIUM (NA) 134 MEQ/L (136-145)
[2017-03-05 10:24] LABS: ALKALINE PHOSPHATASE 78 U/L (45-117); ALT (GPT) 15 U/L (12-78); TOTAL BILIRUBIN ADULT 0.8 MG/DL (0.2-1.0)
[2017-03-05 12:06] LABS: BANDS 10 % (0-6); NEUTROPHIL # MANUAL DIFF 10.5 TH/MM3 (1.8-7.7); POLYS (SEG NEUTROPHILS) 70 % (16-70); WBC DIFF SAMPLE 100
[2017-03-05 12:07] LABS: KERATOCYTES OCC (NORMAL); PLATELET ESTIMATE SMEAR NORMAL (NORMAL); PLATELET MORPHOLOGY ENLARGED (NORMAL); SCAN/DIFF FINAL DIFF MANUAL
[2017-03-13] MEDS ORDERED: WHEEMIS3 (14:13)
[2017-03-13] MEDS ORDERED: COMMODE 3-IN-11 MIS (14:13)
[2017-03-13] MEDS ORDERED: [UNRECOGNIZED DRUG - OTHER] (14:14)
[2017-03-18] MEDS ORDERED: POLY17S PO (09:35)
[2017-03-18] MEDS ORDERED: APIX5TAB PO (09:35)
[2017-03-18] MEDS ORDERED: PRAV40TA2 PO (09:35)
[2017-03-18] MEDS ORDERED: SYMB80AE INH (09:35)
[2017-03-18] MEDS ORDERED: FINA5TAB2 PO (09:35)
[2017-03-18] MEDS ORDERED: TAMS0.4C4 PO (09:35)
[2017-03-18] MEDS ORDERED: HYDR-3516 PO (09:35)
[2017-03-18] MEDS ORDERED: FERR325T20 PO (09:35)
[2017-03-18] MEDS ORDERED: ASCO100016 PO (09:35)
[2017-03-18] MEDS ORDERED: AMLO10TA2 PO (09:35)
[2017-03-18] MEDS ORDERED: MULT1TAB PO (09:35)
[2017-03-18] MEDS ORDERED: PANT40TA3 PO (09:35)
[2017-03-18] MEDS ORDERED: CHOL1CAP6 PO (09:35)
== END 2017-03-04 13:00 | DRG 470 ==
LOC: HSDC 05:02 → HSDI 06:53 → EDSTATUS 07:00 → N06A 16:49
PROVIDERS: ADMIT Orthopaedic Surgery; ATTEND Orthopaedic Surgery
PROC: 3E0T3BZ Introduction of Anesthetic Agent into Peripheral Nerves and Plexi, Percutaneous Approach (ICD-10-PCS; 2017-03-03)
PROC: 0SRC0JA Replacement of Right Knee Joint with Synthetic Substitute, Uncemented, Open Approach (ICD-10-PCS; principal; 2017-03-03 06:42)
DX: M17.11 Unilateral primary osteoarthritis, right knee (principal); J44.9 Chronic obstructive pulmonary disease, unspecified; I48.91 Unspecified atrial fibrillation; Z95.1 Presence of aortocoronary bypass graft; I10 Essential (primary) hypertension; K21.9 Gastro-esophageal reflux disease without esophagitis; N40.0 Benign prostatic hyperplasia without lower urinary tract symptoms; I25.10 Atherosclerotic heart disease of native coronary artery without angina pectoris; E78.5 Hyperlipidemia, unspecified; Z96.652 Presence of left artificial knee joint; Z95.0 Presence of cardiac pacemaker; Z87.891 Personal history of nicotine dependence; Z79.02 Long term (current) use of antithrombotics/antiplatelets
CPT/HCPCS: 73560; 80048; 80053; 83735; 85007; 85014; 85018; 85027; 85610; 86850; 86900; 86901; 94150; C1776; C9290; J0690; J1580; J1885; J2370; J2405; J7120

== ENCOUNTER 2017-07-01 09:12 | Emergency (ER) | payer MEDICARE, BC, OTHER ==
[~2017-07-01] VITALS: Ht 175.3 cm; Wt 77.0 kg
[~2017-07-01 09:12] MED LIST changes: +APIX5TAB PO; -ASCO100016 PO; +ASCO100029 PO; -CHOL1CAP6 PO; +COMMODE 3-IN-11 MIS; +D31000CA3 PO; +FERR325T20 PO; +HYDR-3516 PO; -LISI-515 PO; +NORC5TAB PO; +PANT40TA3 PO; +POLY17S PO; -WARF4TAB51 PO; +WHEEMIS3; +[UNRECOGNIZED DRUG - OTHER]
[2017-07-01 09:14] VITALS: BP 166/76; PULSE 81; RESP 18; TEMP 97.5; O2SAT 94
[2017-07-01] MEDS ORDERED: SODIUM CHLORIDE 0.9% FLUSH 10 ML FLUSH IVF PRN (09:45)
--- NOTE | 2017-07-01 09:51 | PD ---
HPI Chief Complaint: Respiratory Symptoms Time Seen by Provider: 09:47 Travel History International Travel<30 days: No Contact w/Intl Traveler<30days: No Traveled to known affect area: No History of Present Illness HPI 86-year-old male patient with history of COPD, CHF, previous CAD status post CABG, hypertension, multiple medical issues, presents to the ER today for several days history of worsening dyspnea on exertion, orthopnea, and coughing. He denies any significant phlegm production. He denies any fevers, chest pains, but has noted that his legs have been swollen. He has tried to use his inhalers at home without significant improvement. Modifying Factors: None Associated Signs & Symptoms: Bilateral leg swelling, dyspnea on exertion, shortness of breath, coughing Risk Factors: CHF history PFSH Past Medical History Hx Anticoagulant Therapy: Yes Arthritis: Yes Asthma: No Heart Rhythm Problems: Yes Cancer: No Cardiac Catheterization: Yes Cardiovascular Problems: Yes (htn on meds, bypass 4 vessels,a-fib) High Cholesterol: Yes Chest Pain: No Congestive Heart Failure: No COPD: No Coronary Artery Disease: Yes Diabetes: No Endocrine: No GERD: Yes Genitourinary: Yes (urines 4 x nightly, prostate) Hepatitis: No Hiatal Hernia: No Hypertension: Yes (and chol) Immune Disorder: No Implanted Vascular Access Dvce: Yes Kidney Stones: No Musculoskeletal: Yes (arthritis) Neurologic: No Psychiatric: No Reproductive: No Respiratory: Yes (copd,chf) Renal Failure: No Sleep Apnea: No Thyroid Disease: No Past Surgical History Abdominal Surgery: No AICD: Yes Arteriovenous Shunt: No Body Medical Devices: ANA pacemaker Cardiac Surgery: Yes (quadruple bypass 2007, Difib. 2009, PACEMAKER) Coronary Artery Bypass Graft: Yes Ear Surgery: No Endocrine Surgery: No Eye Surgery: Yes (bilat cat) Genitourinary Surgery: No Gynecologic Surgery: No Insulin Pump: No Joint Replacement: Yes (LEFT KNEE AND RIGHT TOTAL KNEE) Oral Surgery: Yes (Tooth exctrations years ago ) Pacemaker: No Thoracic Surgery: Yes (left upper chest difibulator ) Other Surgery: Yes Social History Alcohol Use: Yes Tobacco Use: No Substance Use: No Allergies-Medications (Allergen,Severity, Reaction): Coded Allergies: MRI PRECAUTION (Verified Adverse Reaction, Severe, NON CONDITIONAL PACER KMD 01/10/17, 07/01/17) PT HAS AN ADAPTKoffi SANTOS NON CONDITIONAL PACEMAKER BY MEDTRONIC Reported Meds & Prescriptions Reported Meds & Active Scripts Active Lasix (Furosemide) 20 Mg Tab 20 Mg PO DAILY Pantoprazole (Pantoprazole Sodium) 40 Mg Tab 40 Mg PO DAILY 14 Days Polyethylene Glycol 3350 Powder (Polyethylene Glycol) 17 Gram Pow 17 Gm PO DAILY 14 Days Ferosul (Ferrous Sulfate) 325 Mg (65 Mg Iron) Tablet 325 Mg PO BID 30 Days Eliquis (Apixaban) 5 Mg Tab 5 Mg PO BID Centrum Silver Adult 50+ (Multiple Vitamins W/ Minerals) 1 Tab Tab 1 Tab PO DAILY 30 Days Vitamin D-3 (Cholecalciferol) 1,000 Unit Cap 1 Cap PO DAILY 30 Days Vitamin C (Ascorbic Acid) 1,000 Mg Tablet.er 1 Tab PO DAILY 30 Days Symbicort Inh (Budesonide/Formoterol Fumarate) 80-4.5 Mcg/Act Aero 2 Puff INH Q12HR PRN Tamsulosin (Tamsulosin HCl) 0.4 Mg Cap 0.4 Mg PO HS Pravastatin 40 Mg Tab 40 Mg PO HS Finasteride 5 Mg Tab 5 Mg PO HS Do not crush. Amlodipine (Amlodipine Besylate) 10 Mg Tab 10 Mg PO HS Reported [place] (Hydrocodone-Acetaminophen) 5-325 mg Tab 2 Tab PO Q4H PRN Prilosec (Omeprazole Magnesium) 20 Mg Tab 0.5 Tab PO PRN Review of Systems Except as stated in HPI: all other systems reviewed are Neg Physical Exam Narrative GENERAL: Well-developed elderly white male patient currently in mild distress. Awake and oriented 3. SKIN: Focused skin assessment warm/dry. HEAD: Atraumatic. Normocephalic. EYES: Pupils equal and round. No scleral icterus. No injection or drainage. ENT: No nasal bleeding or discharge. Mucous membranes pink and moist. NECK: Trachea midline. Supple. CARDIOVASCULAR: Regular rate and rhythm. No murmur appreciated. RESPIRATORY: Mild accessory muscle use. Basilar Rales bilaterally. Breath sounds equal bilaterally. GASTROINTESTINAL: Abdomen soft, non-tender, nondistended. Hepatic and splenic margins not palpable. MUSCULOSKELETAL: No obvious deformities. No clubbing. No cyanosis. No edema. NEUROLOGICAL: Awake and alert. No obvious cranial nerve deficits. Motor grossly within normal limits. Normal speech. PSYCHIATRIC: Appropriate mood and affect; insight and judgment normal. Data Data Last Documented VS Vital Signs Date Time Temp Pulse Resp B/P (MAP) Pulse Ox O2 Delivery O2 Flow Rate FiO2 07/01/17 10:54 71 20 94 Nasal Cannula 2.00 07/01/17 09:14 97.5 Orders Orders Complete Blood Count With Diff (07/01/17 09:41) Comprehensive Metabolic Panel (07/01/17 09:41) B-Type Natriuretic Peptide (07/01/17 09:41) Iv Access Insert/Monitor (07/01/17 09:41) Electrocardiogram (07/01/17 09:41) Ecg Monitoring (07/01/17 09:41) Oximetry (07/01/17 09:41) Oxygen Administration (07/01/17 09:41) Chest, Single Ap (07/01/17 09:41) Sodium Chloride 0.9% Flush (Ns Flush) (07/01/17 09:45) Methylprednisolone So Succ Inj (Solumedr (07/01/17 10:00) Albuterol-Ipratropium Neb (Duoneb Neb) (07/01/17 10:00) Furosemide Inj (Lasix Inj) (07/01/17 10:30) Ed Discharge Order (07/01/17 10:57) Labs Laboratory Tests Test 07/01/17 09:45 White Blood Count 5.4 TH/MM3 Red Blood Count 3.79 MIL/MM3 Hemoglobin 10.7 GM/DL Hematocrit 33.4 % Mean Corpuscular Volume 88.1 FL Mean Corpuscular Hemoglobin 28.1 PG Mean Corpuscular Hemoglobin Concent 31.9 % Red Cell Distribution Width 15.9 % Platelet Count 136 TH/MM3 Mean Platelet Volume 10.4 FL Neutrophils (%) (Auto) 62.8 % Lymphocytes (%) (Auto) 22.9 % Monocytes (%) (Auto) 12.5 % Eosinophils (%) (Auto) 1.2 % Basophils (%) (Auto) 0.6 % Neutrophils # (Auto) 3.4 TH/MM3 Lymphocytes # (Auto) 1.2 TH/MM3 Monocytes # (Auto) 0.7 TH/MM3 Eosinophils # (Auto) 0.1 TH/MM3 Basophils # (Auto) 0.0 TH/MM3 CBC Comment DIFF FINAL Differential Comment Blood Urea Nitrogen 13 MG/DL Creatinine 0.82 MG/DL Random Glucose 171 MG/DL Total Protein 7.1 GM/DL Albumin 3.3 GM/DL Calcium Level 8.3 MG/DL Alkaline Phosphatase 104 U/L Aspartate Amino Transf (AST/SGOT) 32 U/L Alanine Aminotransferase (ALT/SGPT) 25 U/L Total Bilirubin 0.5 MG/DL Sodium Level 141 MEQ/L Potassium Level 3.6 MEQ/L Chloride Level 108 MEQ/L Carbon Dioxide Level 25.0 MEQ/L Anion Gap 8 MEQ/L Estimat Glomerular Filtration Rate 89 ML/MIN B-Type Natriuretic Peptide 230 PG/ML MDM Medical Decision Making Medical Screen Exam Complete: Yes Emergency Medical Condition: Yes Medical Record Reviewed: Yes Interpretation(s) EKG shows paced rhythm at a rate of 70 bpm with no signs of acute ST-T changes. Laboratory Tests Test 07/01/17 09:45 Red Blood Count 3.79 MIL/MM3 (4.50-5.90) Hemoglobin 10.7 GM/DL (13.0-17.0) Hematocrit 33.4 % (39.0-51.0) Mean Corpuscular Hemoglobin Concent 31.9 % (32.0-36.0) Platelet Count 136 TH/MM3 (150-450) Monocytes (%) (Auto) 12.5 % (0.0-8.0) Random Glucose 171 MG/DL (74-106) Albumin 3.3 GM/DL (3.4-5.0) Calcium Level 8.3 MG/DL (8.5-10.1) Chloride Level 108 MEQ/L (98-107) B-Type Natriuretic Peptide 230 PG/ML (0-100) Last 24 hours Impressions Chest X-Ray 07/01/17 0941 Signed Impressions: Service Date/Time: Saturday, July 01, 2017 10:01 - CONCLUSION: 1. Cardiomegaly with positive fluid balance. 2. Small left pleural effusion and associated left lower lobe airspace disease, presumably compressive atelectasis. Baljeet Saxena MD Differential Diagnosis CHF versus pneumonia versus COPD exacerbation Narrative Course Patient was given nebulizer and Solu-Medrol in the ER as well as Lasix with improvement in symptoms. Vital signs are stable in the ER. He is doing well, walking in the ER without issues. Chest x-ray shows signs of pulmonary edema. His BNP is mildly elevated. At this point, patient apparently has been on Lasix in the past, my plan would be to put him back on Lasix. He states he has a follow-up with Dr. Morrow, his manager environmental affairs tomorrow, and my plan would be to release him with follow-up to cardiology tomorrow. Return for any worsening in symptoms as necessary. The plan has discussed with him and he states understanding. Diagnosis Primary Impression: CHF (congestive heart failure) Med/Other Pt SpecificInfo: Prescription(s) given Scripts Furosemide (Lasix) 20 Mg Tab 20 MG PO DAILY, #10 TAB 0 Refills Prov: Jane Dennis MD 07/01/17 Disposition: DISCHARGE HOME Condition: Stable Jane Dennis MD Jul 01, 2017 09:51
[2017-07-01] MEDS: RESP: ALBUTEROL 2.5 MG/IPRATROPIUM 0.5 MG NEB (SCH) INH (09:56)
[2017-07-01 09:57] VITALS: O2SAT 96
[2017-07-01 09:58] LABS: AUTOMATED NEUTROPHIL # 3.4 TH/MM3 (1.8-7.7); BASOPHIL % 0.6 % (0.0-2.0); EOSINOPHIL # 0.1 TH/MM3 (0-0.4); EOSINOPHIL % 1.2 % (0.0-4.0); HEMATOCRIT 33.4 % (39.0-51.0); HEMOGLOBIN 10.7 GM/DL (13.0-17.0); LYMPH % 22.9 % (9.0-44.0); LYMPHOCYTE # 1.2 TH/MM3 (1.0-4.8); MEAN CELL VOLUME 88.1 FL (80.0-100.0); MEAN CORPUSCULAR HEMOGLOBIN 28.1 PG (27.0-34.0); MEAN CORPUSCULAR HGB CONC 31.9 % (32.0-36.0); MEAN PLATELET VOLUME 10.4 FL (7.0-11.0); MONO % 12.5 % (0.0-8.0); MONOCYTE # 0.7 TH/MM3 (0-0.9); NEUT % 62.8 % (16.0-70.0); PLATELET COUNT 136 TH/MM3 (150-450); RED BLOOD COUNT 3.79 MIL/MM3 (4.50-5.90); RED CELL DISTRIBUTION WIDTH 15.9 % (11.6-17.2); WHITE BLOOD COUNT 5.4 TH/MM3 (4.0-11.0)
[2017-07-01] MEDS ORDERED: methylPREDNISolone SOD SUCC 125 MG/2 ML VIAL IV PUSH ONE (10:00)
[2017-07-01 10:01] VITALS: BP 137/56; PULSE 73; RESP 20; O2SAT 97
[2017-07-01 10:03] LABS: CHLORIDE 108 MEQ/L (98-107); SODIUM (NA) 141 MEQ/L (136-145)
[2017-07-01 10:06] LABS: CALCIUM 8.3 MG/DL (8.5-10.1)
[2017-07-01 10:07] LABS: ALBUMIN 3.3 GM/DL (3.4-5.0); BLOOD UREA NITROGEN 13 MG/DL (7-18); GLUCOSE,RANDOM 171 MG/DL (74-106)
[2017-07-01 10:10] LABS: ALT (GPT) 25 U/L (12-78); AST (GOT) 32 U/L (15-37); CREATININE 0.82 MG/DL (0.60-1.30); GLOMERULAR FILTRATION RATE 89 ML/MIN (>89)
[2017-07-01 10:11] LABS: TOTAL BILIRUBIN ADULT 0.5 MG/DL (0.2-1.0); TOTAL PROTEIN 7.1 GM/DL (6.4-8.2)
[2017-07-01 10:13] LABS: ALKALINE PHOSPHATASE 104 U/L (45-117)
--- NOTE | 2017-07-01 10:19 | RADRPT ---
EXAM DATE/TIME: 07/01/2017 10:01 [facility] COMPARISON: CHEST SINGLE AP, March 05, 2017, 11:36. INDICATIONS : Chest pain and shortness of breath. MEDICAL HISTORY : Hypercholesterolemia. Hypertension. Gastroesophageal reflux disease. Glasses. SURGICAL HISTORY : Pacemaker. CABG Bilateral cataract surgery. Tooth extraction. Cardiac ENCOUNTER: Initial ACUITY: 4 - 6 days PAIN SCORE: 6/10 LOCATION: upper chest FINDINGS: Median sternotomy wires with stable dual-lead pacemaker in place. Cardiac silhouette is enlarged with mild diffuse interstitial prominence. New small left pleural effusion and associated airspace diseas e in the left lower lobe. Remainder of the exam is unchanged. CONCLUSION: 1. Cardiomegaly with positive fluid balance. 2. Small left pleural effusion and associated left lower lobe airspace disease, presumably compressiv e atelectasis. Baljeet Saxena MD on July 01, 2017 at 10:16 Board Certified Radiologist. This report was verified electronically.
[2017-07-01] MEDS ORDERED: FUROSEMIDE 40 MG/4 ML VIAL IV PUSH ONE (10:30)
[2017-07-01 10:54] VITALS: PULSE 71; RESP 20; O2SAT 94
[2017-07-01] MEDS ORDERED: FURO1TAB62 PO (11:00)
--- NOTE | 2017-07-01 17:24 | EKG ---
Date Performed: 07/01/2017 Time Performed: 09:35:25 PTAGE: 86 years EKG: ELECTRONIC VENTRICULAR PACEMAKER Since previous tracing, no significant change noted ABNORM AL RHYTHM ECG PREVIOUS TRACING : 02/14/2017 12.29 DOCTOR: Manasa Lopez Interpretating Date/Time 07/01/2017 17:23:01
== END 2017-07-01 11:18 | disposition home or self-care (01) ==
LOC: PHED 09:12
DX: I11.0 Hypertensive heart disease with heart failure (principal); I50.9 Heart failure, unspecified; I51.7 Cardiomegaly; J44.9 Chronic obstructive pulmonary disease, unspecified; I25.10 Atherosclerotic heart disease of native coronary artery without angina pectoris; R94.31 Abnormal electrocardiogram [ECG] [EKG]; J98.11 Atelectasis; K21.9 Gastro-esophageal reflux disease without esophagitis; E78.00 Pure hypercholesterolemia, unspecified
CPT/HCPCS: 71010; 80053; 83880; 85025; 93005; 94640; 94664; 96374; 96375; 99285; J1940; J2930

== ENCOUNTER → 2017-07-10 | Outpatient (CLI) | payer MEDICARE, BC, OTHER ==
[~2017-07-10] MED LIST changes: -COMMODE 3-IN-11 MIS; +FURO1TAB62 PO; -HYDR-3516 PO; -WHEEMIS3; -[UNRECOGNIZED DRUG - OTHER]
[2017-07-10 08:59] LABS: BICARBONATE 26.4 MEQ/L (21.0-32.0)
[2017-07-10 09:02] LABS: CREATININE 0.78 MG/DL (0.60-1.30)
== END ==
LOC: PLAB 06:46
PROVIDERS: ATTEND Internal Medicine Interventional Cardiology
DX: I48.2 Chronic atrial fibrillation (principal); I50.31 Acute diastolic (congestive) heart failure; R06.02 Shortness of breath
CPT/HCPCS: 36415; 80048; 83880

== ENCOUNTER → 2017-07-21 | Outpatient (CLI) | payer MEDICARE, BC, OTHER ==
[2017-07-21 08:45] LABS: BICARBONATE 28.3 MEQ/L (21.0-32.0); CALCIUM 9.3 MG/DL (8.5-10.1)
[2017-07-21 08:48] LABS: CREATININE 0.79 MG/DL (0.60-1.30)
== END ==
LOC: PLAB 06:40
PROVIDERS: ATTEND Internal Medicine Interventional Cardiology
DX: I48.2 Chronic atrial fibrillation (principal); I50.32 Chronic diastolic (congestive) heart failure; R06.02 Shortness of breath
CPT/HCPCS: 36415; 80048

== ENCOUNTER → 2017-09-01 | Outpatient (CLI) | payer MEDICARE, BC, OTHER ==
[2017-09-01 09:55] LABS: BICARBONATE 24.3 MEQ/L (21.0-32.0); CALCIUM 9.5 MG/DL (8.5-10.1); CREATININE 0.87 MG/DL (0.60-1.30)
== END ==
LOC: PLAB 06:53
PROVIDERS: ATTEND Internal Medicine Interventional Cardiology
DX: R06.02 Shortness of breath (principal); I50.32 Chronic diastolic (congestive) heart failure; I48.2 Chronic atrial fibrillation
CPT/HCPCS: 36415; 80048

== ENCOUNTER → 2017-09-03 | Outpatient (CLI) | payer MEDICARE, BC, OTHER ==
[2017-09-03 08:53] LABS: HEMATOCRIT 32.5 % (39.0-51.0); HEMOGLOBIN 10.9 GM/DL (13.0-17.0); MEAN CELL VOLUME 88.5 FL (80.0-100.0); MEAN CORPUSCULAR HEMOGLOBIN 29.7 PG (27.0-34.0); MEAN CORPUSCULAR HGB CONC 33.5 % (32.0-36.0); MEAN PLATELET VOLUME 9.6 FL (7.0-11.0); PLATELET COUNT 198 TH/MM3 (150-450); RED BLOOD COUNT 3.67 MIL/MM3 (4.50-5.90); RED CELL DISTRIBUTION WIDTH 15.5 % (11.6-17.2); WHITE BLOOD COUNT 8.9 TH/MM3 (4.0-11.0)
== END ==
LOC: PLAB 06:38
PROVIDERS: ATTEND Internal Medicine Interventional Cardiology
DX: I25.10 Atherosclerotic heart disease of native coronary artery without angina pectoris (principal)
CPT/HCPCS: 36415; 85027

== ENCOUNTER 2017-09-11 05:11 | Day surgery (SDC) | payer MEDICARE, BC, OTHER ==
[~2017-09-11] VITALS: Ht 175.3 cm; Wt 66.0 kg
[2017-09-11] MEDS ORDERED: IOHEXOL 350 MG/ML 100 ML BTL (for Cath Lab) OTHER ONE (05:12)
[2017-09-11 05:51] VITALS: BP 117/64; PULSE 76; RESP 18; TEMP 98.2; O2SAT 99
[2017-09-11] MEDS ORDERED: COEN400C PO (06:02)
[2017-09-11] MEDS ORDERED: SPIR25TA PO (06:02)
[2017-09-11] MEDS ORDERED: TOPR50TA PO (06:02)
[2017-09-11] MEDS ORDERED: PRAV80TA2 PO (06:02)
[2017-09-11] MEDS ORDERED: LISI-515 PO (06:02)
[2017-09-11] MEDS ORDERED: PRIL20TA2 (06:02)
[2017-09-11] MEDS ORDERED: FISHCAP4 PO (06:03)
[2017-09-11] MEDS ORDERED: NITR1SUB3 SL (06:03)
[2017-09-11] MEDS ORDERED: SODIUM CHLOR 0.9% 1000 ML INJ 1,000 ML IV SCH ×2 (06:06→08:19)
[2017-09-11] MEDS ORDERED: MIDAZOLAM HCL 2 MG/2 ML VIAL IV PUSH SCH (06:15)
[2017-09-11] MEDS ORDERED: HEPARIN-NS/PF FLUSH BAG 1,000 ML IV FLUSH ONE (07:18)
[2017-09-11] MEDS ORDERED: MIDAZOLAM HCL 2 MG/2 ML VIAL ONE (07:25)
[2017-09-11] MEDS ORDERED: SODIUM CHLORIDE 0.9% FLUSH 10 ML FLUSH IV FLUSH PRN (08:30)
[2017-09-11] MEDS ORDERED: ONDANSETRON HCL 4 MG/2 ML VIAL IV PUSH PRN (08:30)
[2017-09-11] MEDS ORDERED: SODIUM CHLOR 0.9% 250 ML INJ 250 ML IV PRN (08:30)
[2017-09-11] MEDS ORDERED: MISC INFORMATION XX ONE (08:30)
[2017-09-11] MEDS ORDERED: ATROPINE SULFATE 1 MG/ML VIAL IV PUSH PRN (08:30)
--- NOTE | 2017-09-11 08:37 | CATHPROC ---
Modern Message HIS Report Study Information Study Number Admission Scheduled Start Study Start [id number] Sep 11 2017 5:11AM 09/11/2017 Sep 11 2017 7:17AM Bruno Service Cardiac Catheterization Admit Source Facility Department Other [facility] Physician and Clinical Staff Initial MD Bullock, Patric Well Site Drilling Engineer Heena Santiago,RN Recorder Heena Brewster,RT(R) Scrub Geovanna Palmer,RT(R) Procedures Performed Procedure Location (Site) Vessel Name Angiogram LV LV Ventricle Coronary Angiograms RCA Right Coronary Coronary Angiograms BOWDEN-LAD Left Coronary Coronary Angiograms SVG-OM CIRC Coronary Angiograms SVG-PDA Right Coronary L Heart Cath Wire insertion Fem Art (right) Femoral Art Equipment Time Director Staffing Description Size Mfg Part Number Used/Scraped TRANSDUCER, TRCOURTNEYAVE [id number] 07:29 PEREZ HOLCOMB * Used W/STOCKCOCK *[id number] 07:59 CARD[employer]ICAL VASCADE, FR6 CLOSURE SYSTEM FR 6\7 Used *[id number] 534-660T *[id number] 534-620T *[id number] 534-621T *[id number] 534-672T *[id number] 534-642T *[id number] 534-650S *[id number] WIRE, HYDROSTEER 150CM [id number] 07:47 DAIG/[employer] 150CM Used ANGLED GLIDE *[id number] 07:29 MEDLINE INDUSTRIES PACK, CCL CUSTOM * Used *[id number] 07:29 MEDLINE PACER PEN, SKIN DUAL W/ RULER * Used *[id number] 07:29 Pencil [employer] In MEDICAL SHEATH, FR6.5 PRELUDE 11CM FR 6.5 038ACT Used *[id number] 07:29 [employer] In MEDICAL WIRE, 3MMJ .035 180CM 180CM Used *[id number] 07:29 NAMIC MANIFOLD, 4 PORT * Used *[id number] 07:29 NYCOMED OMNIPAQUE, 350 MG, 150ML 150ML [id number] Used [id number] 07:29 [employer] BL[employer]ET,WARM AIR CCL * Used *[id number] History: Current Medications Medication Dosage/Unit Route Frequency Last Date/Time Taken ELIQUIS NORVASC LASIX Statins (any) LISINOPRIL LOPRESSOR History: Allergies Allergy Reaction No Known Allergies NKA MRI PRECAUTION NON CONDITIONAL PACER KMD 01/10/17 hydrochlorothiazide triamterene History: Risk Factors Family History of Hypertension Dyslipidemia Previous IA Previous Heart Failure Premature CAD Yes Yes No No Yes Prior Valve Prior PCI Prior CABG Prior CABGDate Surgery No No Yes 07/07/2002 Cerebrovascular Peripheral Artery Chronic Lung On Dialysis Diabetes Disease Disease Disease No No No Yes No History: Symptoms/Diagnosis Selection Items SOB History: CV Disease Selection Items Known CAD History: Stress Tests Stress or Imaging Studies Performed Yes Standard Exercise Stress Stress Test Result Test Yes Indeterminant Stress Echo No Stress Test SPECT No Stress Test CMR No Cardiac CTA Coronary Calcium Score No No History: Other Disease Selection Items HTN History: Other Current Smoker No Labs Hgb (g/dl) Hct (%) WBC (l/cumm) Platelets (thousands) 11.60-17.00 35.00-51.00 4.00-11.00 150.00-450.00 10.9 32.5 8.9 198 Glucose (mg/dl) BUN (mg/dl) Creatinine (mg/dl) BUN:Creatinine (1:x) 74.00-106.00 7.00-18.00 0.50-1.30 10.00-20.00 91 24 0.8 30 Na (meq/l) K (meq/l) 136.00-145.00 3.50-5.10 140 4.3 CPK-MB (ng/ML) 0.50-3.60 Not Drawn Medication Medication Total Dose (Bolus/Oral) Medication Total Dosage/Unit 1% XYLOCAINE 20 mL FENTANYL 50 mcg VERSED 2 mg Medications (Bolus/Oral) Medication Time Given Dosage/Unit Administered By Reason VERSED 09/11/2017 7:28:10 AM 2 mg Heena Santiago 2 mg VERSED given in lab by Heena Santiago, RN via Peripheral IV. 1% XYLOCAINE 09/11/2017 7:29:00 AM 20 mL Patric Bullock 20 mL 1% XYLOCAINE given in lab by Patric Bullock in Right Groin via Subcutaneous. FENTANYL 09/11/2017 7:29:16 AM 50 mcg Heena Santiago 50 mcg FENTANYL given in lab by Heena Santiago, RN via Peripheral IV. Medication (Drip) Medication Time Given Dosage/Unit Concentration/Unit Diluent (ml) Solution IV Solutions 09/11/2017 7:17:20 AM 0 mL (IV) 500 NaCl .9 Patient arrived on IV Solutions in Left Forearm via Peripheral IV. Pump/Drip Flow = 20 ml/hr using Na Cl .9. Initial Case Assessment Cardiovascular HR Rhythm NIBP Chest Pain 74 paced 131/60 0 Edema Present Skin color Skin None Normal Warm Circulatory - Right Pulses Dorsalis Pedis Femoral d 3 Scale (0,1,2,3,4,d) Circulatory - Left Pulses Dorsalis Pedis Femoral d 3 Scale (0,1,2,3,4,d) Circulatory - Lower Extremities Color Lower Right Color Lower Left Normal Normal Neurological State Oriented to time-place- Alert Moves all extremities person Respiration - General Respiration Rate SpO2 (%) O2 (lpm) (B/min) 17 99 0 Final Case Assessment Cardiovascular HR Rhythm NIBP Chest Pain 70 paced 116/52 0 Edema Present Skin color Skin None Normal Warm Circulatory - Right Pulses Dorsalis Pedis Femoral d 3 Scale (0,1,2,3,4,d) Circulatory - Left Pulses Dorsalis Pedis Femoral d 3 Scale (0,1,2,3,4,d) Circulatory - Lower Extremities Color Lower Right Color Lower Left Normal Normal Neurological State Oriented to time-place- Alert Moves all extremities person Respiration - General Respiration Rate SpO2 (%) (B/min) 14 99 Chronological Log Time Study Chronological Log 7:11:50 Patient arrived via Bed. 7:17:06 Patient Name, D.O.B, / Armband Verified By R.N. 7:17:07 Consent signed by the physician and the patient and verified by the [facility] staff. 7:17:07 Pre-op and post- op instructions given; patient acknowledges understanding of instructions. 7:17:08 Verbal Stimulation=2 Physical Stimulation=2 Airway=2 Respiration=2 TOTAL=8. (0=absent, 1=li mited, 2=present) 7:17:09 Presedation assessment performed by [facility] RN. 7:17:15 Patient has been NPO for More than 6Hrs. Skin Breakdown-none 7:17:15 7:17:16 Patient Warmer Placed on the Table. 7:17:17 Taco Prominences Protected 7:17:19 A # 20 IV was noted in the Forearm (left). Grade = 0 7:17:20 Patient arrived on IV Solutions in Left Forearm via Peripheral IV. Pump/Drip Flow = 20 ml/h r using NaCl .9. 7:17:21 History and physical on the chart or being dictated. Assessment: Initial Case, HR=74 BPM, Rhythm=paced, ADOL=174/60 mmhg, Chest Pain=0, Edema=None, Color=Normal, Skin = Warm Right Pulses: Julian Ped=d, Femoral=3 Left Pulses: Julian Ped=d, Femoral=3 7:17:22 Lower Right Extremities: Color=Normal Lower Left Extremities: Color=Normal Neurological: State=Alert, Ox3, MARTINEZ Respiration: Resp=17 B/min, SpO2=99 %, O2=0 lpm Vitals capture started with the following parameters, Patient=Adult, Interval=5 min, Initial Pre qhgou=926 mmHg, 7:17:23 Deflation Rate=5 mmHg, Cuff placed on Left Leg 7:17:28 Reference ECG taken 7:17:53 HR=87 bpm, HSXQ=929/62 mmhg, GxQ9=573.0 %, Resp=19 B/min, Pain=0, Hemal=10, Cueto=2 7:19:15 MD arrived. 7:23:37 HR=72 bpm, VEIR=561/60 mmhg, SpO2=99.0 %, Resp=16 B/min, Pain=0, Hemal=10, Cueto=2 Time Out. Correct patient, correct procedure, correct physician, power injector loaded with cont rast with surgical team 7:26:00 present. Time Out Concurred by MD and individual staff in procedure. 7:27:00 Case Start 7:27:59 HR=75 bpm, NHKB=600/59 mmhg, SpO2=99.0 %, Resp=17 B/min, Pain=0, Hemal=10, Cueto=2 7:28:10 2 mg VERSED given in lab by Heena Santiago RN via Peripheral IV. 7:29:00 20 mL 1% XYLOCAINE given in lab by Patric Bullock in Right Groin via Subcutaneous. 7:29:11 Bilateral groins prepped with 2% chlorhexidine, and draped after a 3 minute waiting time. 7:29:16 50 mcg FENTANYL given in lab by Hesher, Heena, RN via Peripheral IV. 7:30:00 Access site was Right Femoral Artery. 7:30:34 Pressure channel 1 zeroed. 7:31:29 A wire was inserted via Fem Art (right). 7:32:39 A SHEATH, FR6.5 PRELUDE 11CM FR 6.5 was advanced into the Fem Art (right) using the Percutan eous technique. 7:33:02 HR=70 bpm, DWCP=050/52 mmhg, SpO2=98.0 %, Resp=15 B/min, Pain=0, Hemal=10, Cueto=2 A PIGTAIL STR INFINITI CATHETER FR 6 was advanced over a wire. OMNIPAQUE, 350 MG, 150ML 150ML wa s used for 7:33:09 injections. Recorded Pressure: LV, HR=76, Condition=Condition 1 7:34:08 (Left Ventricle) LV 139/18/8 7:35:09 The LV was injected at 12 cc/sec for a total of 32. OMNIPAQUE, 350 MG, 150ML 150ML used. Recorded Pressure: LV, Ao, HR=70, Condition=Condition 1 7:35:23 (Left Ventricle) LV 143/-3/10, (Aorta) Ao 134/44/77 7:35:36 Catheter was removed A JL 4.0 INFINITI CATHETER FR 6 was advanced over a wire. OMNIPAQUE, 350 MG, 150ML 150ML was use d for 7:36:10 injections. Recorded Pressure: Ao, HR=69, Condition=Condition 1 7:37:24 (Aorta) Ao 127/46/76 7:38:02 GS=622 bpm, PTOC=317/51 mmhg, SpO2=97.0 %, Resp=15 B/min, Pain=0, Hemal=10, Cueto=2 7:40:37 Catheter was removed A JR 4.0 INFINITI CATHETER FR 6 was advanced over a wire. OMNIPAQUE, 350 MG, 150ML 150ML was use d for 7:40:50 injections. 7:42:14 The RCA was injected and visualized at various angles. OMNIPAQUE, 350 MG, 150ML 150ML used. 7:42:58 HR=70 bpm, DXCL=744/53 mmhg, SpO2=97.0 %, Resp=16 B/min, Pain=0, Hemal=10, Cueto=2 7:46:29 A WIRE, 3MMJ .035 180CM 180CM was inserted via Fem Art (right). 7:47:26 Wire removed 7:47:47 A WIRE, HYDROSTEER 150CM ANGLED GLIDE 150CM was inserted via Fem Art (right). 7:48:02 HR=69 bpm, KGVP=470/53 mmhg, SpO2=98.0 %, Resp=12 B/min, Pain=0, Hemal=10, Cueto=2 7:49:15 Wire removed 7:49:39 The BOWDEN-LAD was injected and visualized at various angles. OMNIPAQUE, 350 MG, 150ML 150ML used. After removing the current catheter a MPA-2 INFINITI CATHETER FR 6 was advanced over a WIRE, 3M MJ .035 180CM 7:51:19 180CM. 7:53:01 HR=69 bpm, IOMQ=270/56 mmhg, SpO2=99.0 %, Resp=9 B/min, Pain=0, Hemal=10, Cueto=2 7:53:29 The SVG-PDA was injected and visualized at various angles. OMNIPAQUE, 350 MG, 150ML 150ML u sed. After removing the current catheter a LCB INFINITI CATHETER FR 6 was advanced over a WIRE, 3MMJ .035 180CM 7:55:05 180CM. 7:56:23 The SVG-OM was injected and visualized at various angles. OMNIPAQUE, 350 MG, 150ML 150ML us ed. 7:58:00 HR=70 bpm, YKCG=135/52 mmhg, SpO2=98.0 %, Resp=12 B/min, Pain=0, Hemal=10, Cueto=2 7:58:11 Catheter was removed Assessment: Final Case, HR=70 BPM, Rhythm=paced, VOOQ=431/52 mmhg, Chest Pain=0, Edema=None, Color=Normal, Skin = Warm Right Pulses: Julian Ped=d, Femoral=3 Left Pulses: Julian Ped=d, Femoral=3 7:59:15 Lower Right Extremities: Color=Normal Lower Left Extremities: Color=Normal Neurological: State=Alert, Ox3, MARTINEZ Respiration: Resp=14 B/min, SpO2=99 % 7:59:53 Catheter(s) removed without difficulty 8:00:00 An injection in the Fem Art (right) was made through the SHEATH, FR6.5 PRELUDE 11CM FR 6.5. 8:00:33 VASCADE, FR6 CLOSURE SYSTEM FR 6\7 placement in the Fem Art (right) 8:01:38 Case End 8:01:39 Sterile dressing applied to site 8:01:41 No case complications noted. 8:01:42 Cine recording checked. 8:01:44 Bedside Report will be given. 8:01:47 A Left Heart Cath was performed. 8:01:50 Clinical correlaton risk stratification. 8:03:01 HR=70 bpm, DHNW=006/52 mmhg, SpO2=99.0 %, Resp=15 B/min, Pain=0, Hemal=10, Cueto=2 8:08:37 HR=69 bpm, VDVV=465/57 mmhg, SpO2=99.0 %, Resp=16 B/min, Pain=0, Hemal=10, Cueto=2 8:13:03 HR=72 bpm, UHVP=280/67 mmhg, SpO2=99.0 %, Resp=12 B/min, Pain=0, Hemal=10, Cueto=2 End Study - Contrast Media Used In Study Contrast Total Opened (mL) Total Used (mL) Total Wasted (mL) Omnipaque 175 175 0 End Study - Maximum Contrast Load Max Contrast Load (mL) 412.5 End Study - Radiation Exposure Fluoro Time (minutes) 14.7 End Study - Sheaths Sheaths Pulled By Sheath Hold Time (min) Patric Bullock End Study - Patient Disposition Complications Transferred To No Outpatient Bed
--- NOTE | 2017-09-11 08:40 | MA ---
cc: Patric Bullock MD, David W MD 09/11/2017 PROCEDURE PERFORMED: Left heart catheterization. Coronary arteriography. Selective injection of left internal mammary artery graft. Selective injection of saphenous vein bypass grafts x 3. Right femoral angiography. Left ventriculography. Vascade arteriotomy closure right femoral artery. PROCEDURE TECHNIQUE: The patient was brought to the cardiac catheterization laboratory following informed consent and the area of the right groin prepped and draped in the usual sterile manner. Following 15 mL of 1% Xylocaine for local anesthesia in the right groin, a 6 [place] short introducer sheath was placed in the right femoral artery via the modified Seldinger technique. Through this introducer sheath, a 6 [place] diagnostic catheter system including a JL4, JR4, straight pigtail, left bypass catheter, and multipurpose A2 catheter were used for the left heart study. Multiple projections of the left and right coronary arteries, saphenous vein bypass grafts, and left internal mammary artery graft were taken. The left ventriculogram was done in the CROSS 30 degree projection only. At completion of the diagnostic procedure, the catheters and introducer were removed and adequate hemostasis was maintained with the use of a Vascade device in the right femoral artery. The patient tolerated the procedure well. There were no immediate complications. HEMODYNAMIC DATA: No gradient was recorded across the aortic valve. For complete hemodynamic details, please see accompanying paperwork. ANGIOGRAPHIC FINDINGS: Left ventricle: The left ventricle demonstrates some increased end-systolic and diastolic dimensions. There is mild global left ventricular systolic dysfunction. Estimated left ventricular ejection fraction is 45%. No mitral regurgitation is seen. The aortic valve is trileaflet and opens normally. The aortic root and proximal portion of the ascending aorta are normal. Left coronary artery: The left main trunk arises normally from the left coronary sinus. This vessel is heavily calcified. There is a 70-80% ostial stenosis. Left anterior descending artery: The LAD is a moderate caliber vessel whose course is to the apex. The LAD is 100% occluded in its proximal segment. It is heavily calcified. The mid and distal left anterior descending artery is filling via the patent left internal mammary artery graft. That graft has a Y-branch from a saphenous vein graft to the major diagonal branch which is also widely patent. The diagonal branch is seen filling antegrade and retrograde and is moderate in caliber. Ramus intermedius: The ramus intermedius is a small to medium sized vessel with a 60-70% proximal stenosis. Circumflex: The main circumflex is heavily calcified. There is 100% occlusion in its proximal segment. It gives rise to a large posterolateral branch. The main circumflex is large in caliber and nondominant. The posterolateral branch is large in caliber and has moderate luminal irregularities throughout. Right coronary artery: Dominant. The right coronary artery is severely and diffusely diseased. It gives rise to a posterior descending branch, a right ventricular marginal branch, and multiple posterior ventricular branches. The right coronary artery is heavily calcified. It has a 60% tubular stenosis throughout the mid segment. There is an area of up to 70% stenosis in the mid segment followed by an area of 95-99% stenosis in the distal segment beyond the posterior descending branch. The right ventricular marginal branch is moderate in caliber with moderate irregularities. The posterior descending branch is small to medium in caliber with a 70-80% proximal stenosis and fills via the patent saphenous vein graft. The distal right coronary artery has multiple small posterior ventricular branches. There is a tubular 95-99% stenosis prior to these branches. Left internal mammary graft, Y-graft to LAD and major diagonal: Widely patent. Saphenous vein bypass graft to the posterior descending branch of the right coronary artery: Widely patent. Saphenous vein graft to the large obtuse marginal branch of the circumflex: Widely patent. DIAGNOSIS: 1. Severe 3 vessel coronary atherosclerosis. 2. Mild left ventricular dysfunction. 3. Continued patency of the left internal mammary Y-graft to the LAD and diagonal, saphenous vein grafts to the obtuse marginal and posterior descending branch of the right coronary artery 15 years post-bypass surgery. COMMENTS/RECOMMENDATIONS: Angiographically, this patient is a suitable candidate for continued aggressive medical management. He will be discharged home later today when ambulatory and stable. Followup has been arranged. Medications will be adjusted optimally. I have discussed the plans in detail with the patient. MD MARIE Contreras/CURTIS , 08:18 AM , 08:39 AM
[2017-09-11] MEDS ORDERED: FUROSEMIDE 20 MG TAB PO ONE (09:00)
[2017-09-11] MEDS ORDERED: FERROUS SULFATE 325 MG (65 MG ELEMENTAL IRON) TAB PO SCH (09:00)
[2017-09-11] MEDS ORDERED: PRAVASTATIN SOD 80 MG TAB PO SCH (09:00)
[2017-09-11] MEDS ORDERED: SODIUM CHLORIDE 0.9% FLUSH 10 ML FLUSH IV FLUSH SCH (09:00)
[2017-09-12] MEDS ORDERED: FUROSEMIDE 20 MG TAB PO SCH (09:00)
[2017-09-12] MEDS ORDERED: LISINOPRIL 20 MG TAB PO SCH (09:00)
[2017-09-12] MEDS ORDERED: APIXABAN 5 MG TABLET PO SCH (09:00)
== END 2017-09-11 10:55 | disposition home or self-care (01) ==
LOC: HDOC 05:11 → HDIC 05:12 → HDOC 10:55
PROVIDERS: ATTEND Internal Medicine Interventional Cardiology
DX: I25.10 Atherosclerotic heart disease of native coronary artery without angina pectoris (principal); I11.0 Hypertensive heart disease with heart failure; I50.42 Chronic combined systolic (congestive) and diastolic (congestive) heart failure; I49.5 Sick sinus syndrome; I48.2 Chronic atrial fibrillation; Z95.1 Presence of aortocoronary bypass graft; Z79.01 Long term (current) use of anticoagulants
CPT/HCPCS: 93459; 99152; 99153; C1760; C1769; C1893; G0269; J1644; J2250; J3010; Q9967

== ENCOUNTER → 2017-10-15 | Outpatient (CLI) | payer MEDICARE, BC, OTHER ==
[~2017-10-15] MED LIST changes: +COEN400C PO; +FISHCAP4 PO; +LISI-515 PO; +NITR1SUB3 SL; -PANT40TA3 PO; -POLY17S PO; -PRAV40TA2 PO; +PRAV80TA2 PO; +PRIL20TA2; +SPIR25TA PO; +TOPR50TA PO
[2017-10-15 10:36] LABS: ALBUMIN 3.9 GM/DL (3.4-5.0); ALT (GPT) 23 U/L (12-78); AST (GOT) 29 U/L (15-37); BICARBONATE 21.5 MEQ/L (21.0-32.0); BLOOD UREA NITROGEN 15 MG/DL (7-18); CALCIUM 9.2 MG/DL (8.5-10.1); CHLORIDE 109 MEQ/L (98-107); CHOLESTEROL 105 MG/DL (120-200); CREATININE 0.98 MG/DL (0.60-1.30); GLOMERULAR FILTRATION RATE 73 ML/MIN (>89); GLUCOSE,FASTING 91 MG/DL (74-99); SODIUM (NA) 137 MEQ/L (136-145); TRIGLYCERIDES 56 MG/DL (42-150)
[2017-10-15 10:37] LABS: AUTOMATED NEUTROPHIL # 3.8 TH/MM3 (1.8-7.7); BASOPHIL # 0.1 TH/MM3 (0-0.2); BASOPHIL % 0.9 % (0.0-2.0); EOSINOPHIL # 0.1 TH/MM3 (0-0.4); EOSINOPHIL % 1.4 % (0.0-4.0); HEMATOCRIT 32.8 % (39.0-51.0); HEMOGLOBIN 11.1 GM/DL (13.0-17.0); LYMPH % 23.5 % (9.0-44.0); LYMPHOCYTE # 1.4 TH/MM3 (1.0-4.8); MEAN CELL VOLUME 90.5 FL (80.0-100.0); MEAN CORPUSCULAR HEMOGLOBIN 30.5 PG (27.0-34.0); MEAN CORPUSCULAR HGB CONC 33.8 % (32.0-36.0); MEAN PLATELET VOLUME 10.8 FL (7.0-11.0); MONO % 11.3 % (0.0-8.0); MONOCYTE # 0.7 TH/MM3 (0-0.9); NEUT % 62.9 % (16.0-70.0); PLATELET COUNT 147 TH/MM3 (150-450); RED BLOOD COUNT 3.63 MIL/MM3 (4.50-5.90); RED CELL DISTRIBUTION WIDTH 16.5 % (11.6-17.2)
[2017-10-15 10:38] LABS: ALKALINE PHOSPHATASE 86 U/L (45-117); CHOLESTEROL/ HDL RATIO 2.38 RATIO; HDL CHOLESTEROL 44.1 MG/DL (40.0-60.0); LDL CHOLESTEROL 50 MG/DL (0-99); LDL CHOLESTEROL DIRECT 64 MG/DL (0-99); TOTAL BILIRUBIN ADULT 0.5 MG/DL (0.2-1.0); TOTAL PROTEIN 7.8 GM/DL (6.4-8.2)
== END ==
LOC: PLAB 06:52
PROVIDERS: ATTEND Internal Medicine Interventional Cardiology
DX: I50.22 Chronic systolic (congestive) heart failure (principal); D64.9 Anemia, unspecified; E78.5 Hyperlipidemia, unspecified; Z79.899 Other long term (current) drug therapy
CPT/HCPCS: 36415; 80053; 80061; 83721; 85025

== ENCOUNTER 2017-11-29 14:28 | Observation (INO) | payer MEDICARE, BC, OTHER ==
[2017-11-29] VITALS (8 sets, daily range): BP systolic 108–126; BP diastolic 55–62; PULSE 70–72; RESP 16–20; TEMP 97.7–98.9; O2SAT 98–100
[~2017-11-29] VITALS: Ht 175.3 cm; Wt 68.0 kg
[2017-11-29] MEDS ORDERED: ACETAMINOPHEN 325 MG TAB PO ONE (14:45)
[2017-11-29] MEDS ORDERED: RESP: ALBUTEROL 2.5 MG/IPRATROPIUM 0.5 MG NEB (SCH) NEB ONE (14:45)
[2017-11-29] MEDS ORDERED: SODIUM CHLORID 0.9% 500 ML INJ 500 ML IV ONE ×2 (14:45→16:15)
--- NOTE | 2017-11-29 14:57 | PD ---
HPI Chief Complaint: Fever Time Seen by Provider: 14:42 Travel History International Travel<30 days: No Contact w/Intl Traveler<30days: No Traveled to known affect area: No History of Present Illness HPI The patient is a 87-year-old male who presents to the emergency department for cough and cold symptoms with fever. The patient states he developed his "end of winter cold "last week. The patient called his primary physician, Dr. Kemp, was prescribed Zithromax. The patient took his last dose of Zithromax yesterday, however, continues to have symptoms. The patient stated he had a fever earlier today at home, EMS states it was 102 orally. The patient does note subjective fever with chills, continues to have a dry mostly nonproductive cough. He also notes nasal congestion. He denies any nausea, vomiting, diarrhea, abdominal pain, or dysuria. 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 The patient does live alone at home. Symptoms are moderate and progressive. PFSH Past Medical History Hx Anticoagulant Therapy: Yes (ELIQUIS) Arthritis: Yes Asthma: No Heart Rhythm Problems: Yes Cancer: No Cardiac Catheterization: Yes Cardiovascular Problems: Yes (bypass 4 vessels,a-fib) High Cholesterol: Yes Chest Pain: No Congestive Heart Failure: No COPD: No Coronary Artery Disease: Yes Diabetes: No Endocrine: No Gastrointestinal Disorders: No GERD: Yes Genitourinary: Yes (urines 4 x nightly, prostate) Hepatitis: No Hiatal Hernia: No Hypertension: Yes Immune Disorder: No Implanted Vascular Access Dvce: Yes Kidney Stones: No Musculoskeletal: Yes (arthritis) Neurologic: No Psychiatric: No Reproductive: No Respiratory: Yes (copd,chf) Renal Failure: No Sleep Apnea: No Thyroid Disease: No Tetanus Vaccination: Unknown Influenza Vaccination: Yes ?: Not Past Surgical History Abdominal Surgery: No AICD: Yes Arteriovenous Shunt: No Body Medical Devices: ANA pacemaker Cardiac Surgery: Yes (quadruple bypass 2007, Difib. 2010, PACEMAKER) Coronary Artery Bypass Graft: Yes Ear Surgery: No Endocrine Surgery: No Eye Surgery: Yes (bilat cat) Genitourinary Surgery: No Gynecologic Surgery: No Insulin Pump: No Joint Replacement: Yes (LEFT KNEE AND RIGHT TOTAL KNEE) Oral Surgery: Yes (Tooth exctrations years ago ) Pacemaker: No Thoracic Surgery: Yes (left upper chest difibulator ) Other Surgery: Yes Social History Alcohol Use: Yes (OCCASIONALLY) Tobacco Use: No (QUIT 60 YEARS AGO) Substance Use: No Allergies-Medications (Allergen,Severity, Reaction): Coded Allergies: hydrochlorothiazide (Verified Allergy, Unknown, 09/11/17) intolerance per chart-patient denies triamterene (Verified Allergy, Unknown, 09/11/17) intolerance per chart-patient denies MRI PRECAUTION (Verified Adverse Reaction, Severe, NON CONDITIONAL PACER KMD 01/10/17, 07/01/17) PT HAS AN TEJAL SANTOS NON CONDITIONAL PACEMAKER BY [employer] Reported Meds & Prescriptions Reported Meds & Active Scripts Active Lasix (Furosemide) 20 Mg Tab 20 Mg PO DAILY Ferosul (Ferrous Sulfate) 325 Mg (65 Mg Iron) Tablet 325 Mg PO BID 30 Days Eliquis (Apixaban) 5 Mg Tab 5 Mg PO BID Centrum Silver Adult 50+ (Multiple Vitamins W/ Minerals) 1 Tab Tab 1 Tab PO DAILY 30 Days Vitamin D-3 (Cholecalciferol) 1,000 Unit Cap 1 Cap PO DAILY 30 Days Vitamin C (Ascorbic Acid) 1,000 Mg Tablet.er 1 Tab PO DAILY 30 Days Symbicort Inh (Budesonide/Formoterol Fumarate) 80-4.5 Mcg/Act Aero 2 Puff INH Q12HR PRN Tamsulosin (Tamsulosin HCl) 0.4 Mg Cap 0.4 Mg PO HS Finasteride 5 Mg Tab 5 Mg PO HS Do not crush. Amlodipine (Amlodipine Besylate) 10 Mg Tab 10 Mg PO HS Reported Nitroglycerin SL (Nitroglycerin) 0.4 Mg Subl 0.4 Mg SL DIRECTED PRN ONE TABLET UNDER THE TONGUE NEEDED FOR CHEST PAIN, MAY REPEAT EVERY FIVE MINUTES FOR A TOTAL OF 3 DOSES OR CALL 911 IF NO RELIEF Fish Oil + D3 (Fish Oil-Cholecalciferol) 1,200-1,000 Mg-Unit Cap 1 Cap PO DAILY Prilosec (Omeprazole Magnesium) 20 Mg Tab Coq-10 (Coenzyme Q10 (Ubidecarenone)) 400 Mg Cap 200 Mg PO DAILY Toprol XL (Metoprolol Succinate) 50 Mg Tab 50 Mg PO DAILY Spironolactone 25 Mg Tab 25 Mg PO DAILY Lisinopril 20 Mg Tab 20 Mg PO DAILY Pravastatin 80 Mg Tab 80 Mg PO DAILY [place] (Hydrocodone-Acetaminophen) 5-325 mg Tab 2 Tab PO Q4H PRN Prilosec (Omeprazole Magnesium) 20 Mg Tab 0.5 Tab PO PRN Review of Systems Except as stated in HPI: all other systems reviewed are Neg General / Constitutional: Positive: Fever, Chills HENT: Positive: Congestion Cardiovascular: No: Chest Pain or Discomfort Respiratory: Positive: Cough, No: Shortness of Breath Gastrointestinal: No: Nausea, Vomiting, Diarrhea, Abdominal Pain Genitourinary: No: Dysuria Musculoskeletal: Positive: Weakness Neurologic: Positive: Weakness, Paresthesia, Sensory Disturbance Physical Exam Narrative GENERAL: Awake, alert, pleasant 87-year-old male who appears his stated age and is in no acute respiratory distress. SKIN: Focused skin assessment warm/dry. HEAD: Atraumatic. Normocephalic. EYES: No injection or drainage. ENT: No nasal bleeding or discharge. Black discoloration over the posterior tongue. Pacemaker in place left chest wall. NECK: Trachea midline. No JVD. CARDIOVASCULAR: Regular rate and rhythm. No murmur appreciated. RESPIRATORY: No accessory muscle use. Wheezing in the right upper and lower lung machado noted. GASTROINTESTINAL: Abdomen soft, non-tender, nondistended. No rebound tenderness. MUSCULOSKELETAL: No obvious deformities. No clubbing. No cyanosis. No edema. NEUROLOGICAL: Awake and alert. No obvious cranial nerve deficits. Motor grossly within normal limits. Normal speech. PSYCHIATRIC: Appropriate mood and affect; insight and judgment normal. Data Data Last Documented VS Vital Signs Date Time Temp Pulse Resp B/P (MAP) Pulse Ox O2 Delivery O2 Flow Rate FiO2 11/29/17 16:15 18 11/29/17 15:11 99 Room Air 11/29/17 15:11 11/29/17 14:38 73 11/29/17 14:38 98.9 Orders Orders Sepsis Workup Initiated (11/29/17 ) Electrocardiogram (11/29/17 14:42) Complete Blood Count With Diff (11/29/17 14:42) Comprehensive Metabolic Panel (11/29/17 14:42) Lactic Acid Sepsis Protocol (11/29/17 14:42) Magnesium (Mg) (11/29/17 14:42) Troponin I (11/29/17 14:42) Urinalysis - C+S If Indicated (11/29/17 14:42) Influenzae A/B Antigen (11/29/17 14:42) Blood Culture (11/29/17 14:42) Chest, Pa & Lat (11/29/17 14:42) Blood Glucose (11/29/17 14:42) Ecg Monitoring (11/29/17 14:42) Iv Access Insert/Monitor (11/29/17 14:42) Oximetry (11/29/17 14:42) Oxygen Administration (11/29/17 14:42) Acetaminophen (Tylenol) (11/29/17 14:45) Sodium Chlorid 0.9% 500 Ml Inj (Ns 500 M (11/29/17 14:45) Albuterol-Ipratropium Neb (Duoneb Neb) (11/29/17 14:45) Sodium Chlorid 0.9% 500 Ml Inj (Ns 500 M (11/29/17 16:15) Urine Culture (11/29/17 16:00) Place In Observation (11/29/17 ) Vital Signs (Adult) Q4H (11/29/17 17:07) Activity Oob Ad Lizbet (11/29/17 17:07) Intake + Output TERRENCE.QSHIFT (11/29/17 17:07) Diet Heart Healthy (11/29/17 Dinner) Sodium Chloride 0.9% Flush (Ns Flush) (11/29/17 17:15) Sodium Chloride 0.9% Flush (Ns Flush) (11/29/17 21:00) Basic Metabolic Panel (Bmp) (11/30/17 06:00) Complete Blood Count With Diff (11/30/17 06:00) Pt Request For Service (11/29/17 17:07) Scd Bilateral/Knee High TERRENCE.BID (11/29/17 17:07) Naloxone Inj (Narcan Inj) (11/29/17 17:15) Docusate Sodium-Senna (Lo-Colace) (11/29/17 21:00) Magnesium Hydroxide Liq (Milk Of Magnesi (11/29/17 17:15) Sennosides (Senokot) (11/29/17 17:15) Bisacodyl Supp (Dulcolax Supp) (11/29/17 17:15) Lactulose Liq (Lactulose Liq) (11/29/17 17:15) Sodium Chlor 0.9% 1000 Ml Inj (Ns 1000 M (11/29/17 17:15) Admit Order (Ed Use Only) (11/29/17 17:18) Labs Laboratory Tests Test 11/29/17 14:50 11/29/17 16:00 White Blood Count 10.6 TH/MM3 Red Blood Count 3.19 MIL/MM3 Hemoglobin 9.8 GM/DL Hematocrit 29.6 % Mean Corpuscular Volume 92.6 FL Mean Corpuscular Hemoglobin 30.7 PG Mean Corpuscular Hemoglobin Concent 33.2 % Red Cell Distribution Width 13.3 % Platelet Count 199 TH/MM3 Mean Platelet Volume 10.1 FL Neutrophils (%) (Auto) 84.4 % Lymphocytes (%) (Auto) 4.7 % Monocytes (%) (Auto) 10.7 % Eosinophils (%) (Auto) 0.0 % Basophils (%) (Auto) 0.2 % Neutrophils # (Auto) 8.9 TH/MM3 Lymphocytes # (Auto) 0.5 TH/MM3 Monocytes # (Auto) 1.1 TH/MM3 Eosinophils # (Auto) 0.0 TH/MM3 Basophils # (Auto) 0.0 TH/MM3 CBC Comment DIFF FINAL Differential Comment Blood Urea Nitrogen 23 MG/DL Creatinine 1.47 MG/DL Random Glucose 137 MG/DL Total Protein 7.2 GM/DL Albumin 3.2 GM/DL Calcium Level 8.3 MG/DL Magnesium Level 1.6 MG/DL Alkaline Phosphatase 154 U/L Aspartate Amino Transf (AST/SGOT) 32 U/L Alanine Aminotransferase (ALT/SGPT) 35 U/L Total Bilirubin 0.4 MG/DL Sodium Level 136 MEQ/L Potassium Level 4.8 MEQ/L Chloride Level 106 MEQ/L Carbon Dioxide Level 20.1 MEQ/L Anion Gap 10 MEQ/L Estimat Glomerular Filtration Rate 45 ML/MIN Lactic Acid Level 1.3 mmol/L Troponin I 0.02 NG/ML Urine Color YELLOW Urine Turbidity CLEAR Urine pH 5.0 Urine Specific [place] 1.017 Urine Protein TRACE mg/dL Urine Glucose (UA) NEG mg/dL Urine Ketones NEG mg/dL Urine Occult Blood NEG Urine Nitrite NEG Urine Bilirubin NEG Urine Urobilinogen LESS THAN 2.0 MG/DL Urine Leukocyte Esterase NEG Urine RBC 1 /hpf Urine WBC 1 /hpf Urine Bacteria RARE /hpf Microscopic Urinalysis Comment CATH-CULTURE IND MDM Medical Decision Making Medical Screen Exam Complete: Yes Emergency Medical Condition: Yes Medical Record Reviewed: Yes Interpretation(s) Last Impressions Chest X-Ray 11/29/17 1442 Signed Impressions: CONCLUSION: Tiny left effusion. Laboratory Tests Test 11/29/17 14:50 11/29/17 16:00 White Blood Count 10.6 TH/MM3 Red Blood Count 3.19 MIL/MM3 Hemoglobin 9.8 GM/DL Hematocrit 29.6 % Mean Corpuscular Volume 92.6 FL Mean Corpuscular Hemoglobin 30.7 PG Mean Corpuscular Hemoglobin Concent 33.2 % Red Cell Distribution Width 13.3 % Platelet Count 199 TH/MM3 Mean Platelet Volume 10.1 FL Neutrophils (%) (Auto) 84.4 % Lymphocytes (%) (Auto) 4.7 % Monocytes (%) (Auto) 10.7 % Eosinophils (%) (Auto) 0.0 % Basophils (%) (Auto) 0.2 % Neutrophils # (Auto) 8.9 TH/MM3 Lymphocytes # (Auto) 0.5 TH/MM3 Monocytes # (Auto) 1.1 TH/MM3 Eosinophils # (Auto) 0.0 TH/MM3 Basophils # (Auto) 0.0 TH/MM3 CBC Comment DIFF FINAL Differential Comment Blood Urea Nitrogen 23 MG/DL Creatinine 1.47 MG/DL Random Glucose 137 MG/DL Total Protein 7.2 GM/DL Albumin 3.2 GM/DL Calcium Level 8.3 MG/DL Magnesium Level 1.6 MG/DL Alkaline Phosphatase 154 U/L Aspartate Amino Transf (AST/SGOT) 32 U/L Alanine Aminotransferase (ALT/SGPT) 35 U/L Total Bilirubin 0.4 MG/DL Sodium Level 136 MEQ/L Potassium Level 4.8 MEQ/L Chloride Level 106 MEQ/L Carbon Dioxide Level 20.1 MEQ/L Anion Gap 10 MEQ/L Estimat Glomerular Filtration Rate 45 ML/MIN Lactic Acid Level 1.3 mmol/L Troponin I 0.02 NG/ML Urine Color YELLOW Urine Turbidity CLEAR Urine pH 5.0 Urine Specific [place] 1.017 Urine Protein TRACE mg/dL Urine Glucose (UA) NEG mg/dL Urine Ketones NEG mg/dL Urine Occult Blood NEG Urine Nitrite NEG Urine Bilirubin NEG Urine Urobilinogen LESS THAN 2.0 MG/DL Urine Leukocyte Esterase NEG Urine RBC 1 /hpf Urine WBC 1 /hpf Urine Bacteria RARE /hpf Microscopic Urinalysis Comment CATH-CULTURE IND Date/Time Source Procedure Growth Status 11/29/17 14:55 Blood Peripheral Aerobic Blood Culture Pending Received 11/29/17 14:55 Blood Peripheral Anaerobic Blood Culture Pending Received 11/29/17 14:50 Blood Peripheral Aerobic Blood Culture Pending Received 11/29/17 14:50 Blood Peripheral Anaerobic Blood Culture Pending Received 11/29/17 16:00 Nasal Aspirate Influenza Types A,B Antigen (SAURABH) - Final NEGATIVE FOR FLU A AND B ANTIGEN.... Complete 11/29/17 16:00 Urine Catheterized Urine Urine Culture Pending Received Differential Diagnosis Differential diagnosis includes URI, pneumonia, influenza, sepsis, bronchitis, neuropathy, electrolyte abnormality, dehydration. Narrative Course IV was established, labs are drawn and sent, and the patient was placed on cardiac telemetry monitoring and continuous pulse oximetry monitoring. The patient was administered duo nebs 2 normal saline 500 cc with Tylenol 650 mg orally. Blood culture, lactic acid, and CBC were sent to lab. Chest x-ray was obtained. Influenza screen was sent to lab. Chest x-ray is negative. CBC is unremarkable. Lactic acid was normal. Patient's creatinine is elevated compared to baseline, most likely secondary to dehydration. Influenza screen was negative. UA was negative. No source of the patient's fever of 102 by EMS. The patient is Aashish been on Zithromax. We tried a trial of ambulation, but the patient was too weak to get out of bed. After discussion was agreed he would be a 23 hour observation for IV fluids, may benefit from PT evaluation in the morning as he does live alone. The patient's primary physician is Dr. Kemp, therefore, [facility] were paged for 23 hour observation. Physician Communication Physician Communication [facility] were paged for 23 hour observation. I discussed the patient with Dr. Rodriguez who agrees with 23 hour observation. Diagnosis Primary Impression: Acute kidney injury Additional Impressions: Febrile illness Generalized weakness Admitting Information Admitting Physician Requests: Observation Condition: Stable Víctor Kenny MD November 29, 2017 14:57
[2017-11-29 15:05] LABS: AUTOMATED NEUTROPHIL # 8.9 TH/MM3 (1.8-7.7); BASOPHIL % 0.2 % (0.0-2.0); HEMATOCRIT 29.6 % (39.0-51.0); HEMOGLOBIN 9.8 GM/DL (13.0-17.0); LYMPH % 4.7 % (9.0-44.0); LYMPHOCYTE # 0.5 TH/MM3 (1.0-4.8); MEAN CELL VOLUME 92.6 FL (80.0-100.0); MEAN CORPUSCULAR HEMOGLOBIN 30.7 PG (27.0-34.0); MEAN CORPUSCULAR HGB CONC 33.2 % (32.0-36.0); MEAN PLATELET VOLUME 10.1 FL (7.0-11.0); MONO % 10.7 % (0.0-8.0); MONOCYTE # 1.1 TH/MM3 (0-0.9); NEUT % 84.4 % (16.0-70.0); PLATELET COUNT 199 TH/MM3 (150-450); RED BLOOD COUNT 3.19 MIL/MM3 (4.50-5.90); RED CELL DISTRIBUTION WIDTH 13.3 % (11.6-17.2); WHITE BLOOD COUNT 10.6 TH/MM3 (4.0-11.0)
[2017-11-29 15:20] LABS: ALBUMIN 3.2 GM/DL (3.4-5.0); ALT (GPT) 35 U/L (12-78); AST (GOT) 32 U/L (15-37); BICARBONATE 20.1 MEQ/L (21.0-32.0); BLOOD UREA NITROGEN 23 MG/DL (7-18); CALCIUM 8.3 MG/DL (8.5-10.1); CHLORIDE 106 MEQ/L (98-107); CREATININE 1.47 MG/DL (0.60-1.30); GLOMERULAR FILTRATION RATE 45 ML/MIN (>89); GLUCOSE,RANDOM 137 MG/DL (74-106); MAGNESIUM 1.6 MG/DL (1.5-2.5); SODIUM (NA) 136 MEQ/L (136-145)
[2017-11-29 15:23] LABS: ALKALINE PHOSPHATASE 154 U/L (45-117); TOTAL BILIRUBIN ADULT 0.4 MG/DL (0.2-1.0); TOTAL PROTEIN 7.2 GM/DL (6.4-8.2); TROPONIN I 0.02 NG/ML (0.02-0.05)
--- NOTE | 2017-11-29 15:24 | RADRPT ---
EXAM DATE: 11/29/2017 3:19 PM EDT AGE/SEX: 87 years / Male INDICATIONS: Fever. CLINICAL DATA: This is the patient's initial encounter. Patient reports that signs and symptoms have been present for 1 day and indicates a pain score of 0/10. MEDICAL/SURGICAL HISTORY: None. . Port placement. Open heart surgery. COMPARISON: Chest x-ray July 01, 2017. FINDINGS: PA and lateral views of the chest demonstrate a tiny left effusion. No discernible effusion on the ri ght. No infiltrates. Heart is normal in size. No pulmonary vascular engorgement observed. Median ster notomy wires, coronary markers, and left-sided pacing device are noted.. CONCLUSION: Tiny left effusion. Electronically signed by: Jim Posey MD 11/29/2017 3:22 PM EDT
[2017-11-29 16:40] LABS: BACTERIA, URINE RARE /hpf; BILIRUBIN, URINE NEG (NEG); BLOOD, URINE NEG (NEG); GLUCOSE,URINE NEG (NEG); KETONE, URINE NEG (NEG); NITRITE,URINE NEG (NEG); URINE COLOR YELLOW (YELLW/STRAW); URINE LEUKOCYTE ESTERASE NEG (NEG)
[2017-11-29] MEDS ORDERED: SODIUM CHLORIDE 0.9% FLUSH 10 ML FLUSH IV FLUSH PRN (17:15)
[2017-11-29] MEDS ORDERED: LACTULOSE SYRUP 20 GM/30 ML CUP PO PRN (17:15)
[2017-11-29] MEDS ORDERED: BISACODYL 10 MG SUPP RECTAL PRN (17:15)
[2017-11-29] MEDS ORDERED: NALOXONE HCL 0.4 MG/ML AMP IV PUSH PRN (17:15)
[2017-11-29] MEDS ORDERED: SENNOSIDES 8.6 MG TAB PO PRN (17:15)
[2017-11-29] MEDS ORDERED: MAGNESIUM HYDROXIDE SUSP 30 ML CUP PO PRN (17:15)
--- NOTE | 2017-11-29 18:14 | HHI.HP ---
[facility] Bernabe Kemp MD Admission Diagnosis Acute kidney injury, dehydration, febrile illness, generalized weakn Diagnoses: Travel History International Travel<30 Days: No Contact w/Intl Traveler <30 Da: No Traveled to Known Affected Are: No History of Present Illness Mr. Treivzo is an 87-year-old male. He came into the hospital today reporting fevers at home and weakness to the degree where he could not walk. He says just over 1 week ago this started as a cough and he feels he has been progressively weak since then. He does not deal with the sort of illnesses at baseline. Last time he recalls being in the hospital was for a joint replacement. Findings on workup thus far are a degree of acute kidney injury and evidence for early urinary tract infection. He has COPD at baseline but this does not appear to be exacerbated or contributory. No evidence of sepsis. His most significant area of weakness is lower extremities bilaterally. No unilateral weakness. Review of Systems Constitutional: COMPLAINS OF: Fatigue, Fever, DENIES: Chills Eyes: DENIES: Blurred vision, Diplopia, Eye inflammation, Eye pain Ears, nose, mouth, throat: DENIES: Tinnitus, Hearing loss, Vertigo Respiratory: COMPLAINS OF: Cough, DENIES: Wheezing, Shortness of breath Cardiovascular: DENIES: Chest pain, Palpitations, Syncope Gastrointestinal: DENIES: Abdominal pain, Black stools, Bloody stools Musculoskeletal: DENIES: Joint pain, Muscle aches, Stiffness Integumentary: DENIES: Abnormal pigmentation, Nail changes, Pruritus, Rash Hematologic/lymphatic: DENIES: Bruising, Lymphadenopathy Immunologic/allergic: DENIES: Eczema, Urticaria Neurologic: DENIES: Abnormal gait, Headache, Paresthesias Psychiatric: DENIES: Anxiety, Confusion, Hallucinations Except as stated in HPI: all other systems reviewed are Neg Past Family Social History Past Medical History Coronary artery disease Atrial fibrillation Chronic anticoagulation Hyperlipidemia Osteoarthritis Gastroesophageal reflux disease Hypertension COPD Past Surgical History AICD Quadruple bypass in 2007 Bilateral cataract surgery Left knee arthroplasty Right knee arthroplasty Tooth extractions Reported Medications Reported Meds & Active Scripts Active Lasix (Furosemide) 20 Mg Tab 20 Mg PO DAILY Ferosul (Ferrous Sulfate) 325 Mg (65 Mg Iron) Tablet 325 Mg PO BID 30 Days Eliquis (Apixaban) 5 Mg Tab 5 Mg PO BID Centrum Silver Adult 50+ (Multiple Vitamins W/ Minerals) 1 Tab Tab 1 Tab PO DAILY 30 Days Vitamin D-3 (Cholecalciferol) 1,000 Unit Cap 1 Cap PO DAILY 30 Days Vitamin C (Ascorbic Acid) 1,000 Mg Tablet.er 1 Tab PO DAILY 30 Days Symbicort Inh (Budesonide/Formoterol Fumarate) 80-4.5 Mcg/Act Aero 2 Puff INH Q12HR PRN Tamsulosin (Tamsulosin HCl) 0.4 Mg Cap 0.4 Mg PO HS Finasteride 5 Mg Tab 5 Mg PO HS Do not crush. Amlodipine (Amlodipine Besylate) 10 Mg Tab 10 Mg PO HS Reported Nitroglycerin SL (Nitroglycerin) 0.4 Mg Subl 0.4 Mg SL DIRECTED PRN ONE TABLET UNDER THE TONGUE NEEDED FOR CHEST PAIN, MAY REPEAT EVERY FIVE MINUTES FOR A TOTAL OF 3 DOSES OR CALL 911 IF NO RELIEF Fish Oil + D3 (Fish Oil-Cholecalciferol) 1,200-1,000 Mg-Unit Cap 1 Cap PO DAILY Prilosec (Omeprazole Magnesium) 20 Mg Tab Coq-10 (Coenzyme Q10 (Ubidecarenone)) 400 Mg Cap 200 Mg PO DAILY Toprol XL (Metoprolol Succinate) 50 Mg Tab 50 Mg PO DAILY Spironolactone 25 Mg Tab 25 Mg PO DAILY Lisinopril 20 Mg Tab 20 Mg PO DAILY Pravastatin 80 Mg Tab 80 Mg PO DAILY [place] (Hydrocodone-Acetaminophen) 5-325 mg Tab 2 Tab PO Q4H PRN Prilosec (Omeprazole Magnesium) 20 Mg Tab 0.5 Tab PO PRN Allergies: Coded Allergies: hydrochlorothiazide (Verified Allergy, Unknown, 09/11/17) intolerance per chart-patient denies triamterene (Verified Allergy, Unknown, 09/11/17) intolerance per chart-patient denies MRI PRECAUTION (Verified Adverse Reaction, Severe, NON CONDITIONAL PACER KMD 01/10/17, 07/01/17) PT HAS AN TEJAL SANTOS NON CONDITIONAL PACEMAKER BY [employer] Family History Patient reports no medical problems in his family history Social History Alcohol Use: Yes (OCCASIONALLY) Tobacco Use: No (QUIT 60 YEARS AGO) Substance Use: No Physical Exam Vital Signs Vital Signs Date Time Temp Pulse Resp B/P (MAP) Pulse Ox O2 Delivery O2 Flow Rate FiO2 11/29/17 16:15 18 11/29/17 15:11 99 Room Air 11/29/17 15:11 99 Room Air 11/29/17 14:38 73 18 99 Room Air 11/29/17 14:38 98.9 70 20 124/58 (80) 100 Room Air 11/29/17 14:31 98.9 72 18 124/58 (80) 98 Physical Exam GENERAL: NAD, A&Ox3 HEAD: Normocephalic. NECK: Supple, trachea midline. No lymphadenopathy. EYES: No scleral icterus. No injection or drainage. CARDIOVASCULAR: Regular rate and rhythm without murmurs, gallops, or rubs. RESPIRATORY: Breath sounds equal bilaterally. No accessory muscle use. GASTROINTESTINAL: Abdomen soft, non-tender, nondistended. MUSCULOSKELETAL: No cyanosis, or edema. SKIN: Warm and dry. NEURO: No focal neurological deficitis. Laboratory Laboratory Tests Test 11/29/17 14:50 11/29/17 16:00 White Blood Count 10.6 Red Blood Count 3.19 Hemoglobin 9.8 Hematocrit 29.6 Mean Corpuscular Volume 92.6 Mean Corpuscular Hemoglobin 30.7 Mean Corpuscular Hemoglobin Concent 33.2 Red Cell Distribution Width 13.3 Platelet Count 199 Mean Platelet Volume 10.1 Neutrophils (%) (Auto) 84.4 Lymphocytes (%) (Auto) 4.7 Monocytes (%) (Auto) 10.7 Eosinophils (%) (Auto) 0.0 Basophils (%) (Auto) 0.2 Neutrophils # (Auto) 8.9 Lymphocytes # (Auto) 0.5 Monocytes # (Auto) 1.1 Eosinophils # (Auto) 0.0 Basophils # (Auto) 0.0 CBC Comment DIFF FINAL Differential Comment Blood Urea Nitrogen 23 Creatinine 1.47 Random Glucose 137 Total Protein 7.2 Albumin 3.2 Calcium Level 8.3 Magnesium Level 1.6 Alkaline Phosphatase 154 Aspartate Amino Transf (AST/SGOT) 32 Alanine Aminotransferase (ALT/SGPT) 35 Total Bilirubin 0.4 Sodium Level 136 Potassium Level 4.8 Chloride Level 106 Carbon Dioxide Level 20.1 Anion Gap 10 Estimat Glomerular Filtration Rate 45 Lactic Acid Level 1.3 Troponin I 0.02 Urine Color YELLOW Urine Turbidity CLEAR Urine pH 5.0 Urine Specific [place] 1.017 Urine Protein TRACE Urine Glucose (UA) NEG Urine Ketones NEG Urine Occult Blood NEG Urine Nitrite NEG Urine Bilirubin NEG Urine Urobilinogen LESS THAN 2.0 Urine Leukocyte Esterase NEG Urine RBC 1 Urine WBC 1 Urine Bacteria RARE Microscopic Urinalysis Comment CATH-CULTURE IND Date/Time Source Procedure Growth Status 11/29/17 14:55 Blood Peripheral Aerobic Blood Culture Pending Received 11/29/17 14:55 Blood Peripheral Anaerobic Blood Culture Pending Received 11/29/17 16:00 Nasal Aspirate Influenza Types A,B Antigen (SAURABH) - Final NEGATIVE FOR FLU A AND B ANTIGEN.... Complete 11/29/17 16:00 Urine Catheterized Urine Urine Culture Pending Received Result Diagram: 11/29/17 1450 11/29/17 1450 Imaging Last Impressions Chest X-Ray 11/29/17 1442 Signed Impressions: CONCLUSION: Tiny left effusion. Caprini VTE Risk Assessment Caprini VTE Risk Assessment: No/Low Risk (score <= 1) Caprini Risk Assessment Model Point Value = 1 Point Value = 2 Point Value = 3 Point Value = 5 Age 41-60 Minor surgery BMI > 25 kg/m2 Swollen legs Varicose veins or History of unexplained or recurrent spontaneous Oral contraceptives or hormone replacement Sepsis (< 1 month) Serious lung disease, including pneumonia (< 1 month) Abnormal pulmonary function Acute myocardial infarction Congestive heart failure (< 1 month) History of inflammatory bowel disease Medical patient at bed rest Age 61-74 Arthroscopic surgery Major open surgery (> 45 min) Laparoscopic surgery (> 45 min) Malignancy Confined to bed (> 72 hours) Immobilizing plaster cast Central venous access Age >= 75 History of VTE Family history of VTE Factor V Leiden Prothrombin [id number] Lupus anticoagulant Anticardiolipin antibodies Elevated serum homocysteine Heparin-induced thrombocytopenia Other congenital or acquired thrombophilia Stroke (< 1 month) Elective arthroplasty Hip, pelvis, or leg fracture Acute spinal cord injury (< 1 month) Prophylaxis Regimen Total Risk Factor Score Risk Level Prophylaxis Regimen 0-1 Low Early ambulation 2 Moderate Order ONE of the following: *Sequential Compression Device (SCD) *Heparin 5000 units SQ BID 3-4 Higher Order ONE of the following medications: *Heparin 5000 units SQ TID *Enoxaparin/Lovenox 40 mg SQ daily (WT < 150 kg, CrCl > 30 mL/min) *Enoxaparin/Lovenox 30 mg SQ daily (WT < 150 kg, CrCl > 10-29 mL/min) *Enoxaparin/Lovenox 30 mg SQ BID (WT < 150 kg, CrCl > 30 mL/min) AND/OR *Sequential Compression Device (SCD) 5 or more Highest Order ONE of the following medications: *Heparin 5000 units SQ TID (Preferred with Epidurals) *Enoxaparin/Lovenox 40 mg SQ daily (WT < 150 kg, CrCl > 30 mL/min) *Enoxaparin/Lovenox 30 mg SQ daily (WT < 150 kg, CrCl > 10-29 mL/min) *Enoxaparin/Lovenox 30 mg SQ BID (WT < 150 kg, CrCl > 30 mL/min) AND *Sequential Compression Device (SCD) Assessment and Plan Problem List: (1) Urinary tract infection ICD Code: N39.0 - Urinary tract infection, site not specified (2) Dehydration ICD Code: E86.0 - Dehydration (3) Acute kidney injury ICD Code: N17.9 - Acute kidney failure, unspecified Status: Acute Assessment and Plan 87-year-old male admitted secondary to weakness, fever, acute kidney injury with dehydration, UTI. Urinary tract infection Fevers (outpatient) Start Levaquin Probiotic Follow clinically for improvement Consider discharge if improving Monitor for fevers Weakness PT evaluation in AM Acute kidney injury Dehydration Follow renal function IV hydration Coronary artery disease Atrial fibrillation Chronic anticoagulation Follow on telemetry Continue baseline treatments Hyperlipidemia Continue present treatment Follow as an outpatient Hypertension Continue baseline treatment Follow blood pressures Adjust treatments as needed Osteoarthritis Gastroesophageal reflux disease COPD No exacerbations of these conditions No change to baseline treatment DVT prophylaxis SCDs for now, given renal function compromise Luis Hodges MD November 29, 2017 18:14
[2017-11-29] MEDS: SODIUM CHLOR 0.9% 1000 ML INJ 1,000 ML IV SCH (18:39)
[2017-11-29] MEDS: SODIUM CHLORIDE 0.9% FLUSH 10 ML FLUSH IV FLUSH SCH (21:00)
[2017-11-29] MEDS: DOCUSATE SODIUM 50 MG/SENNA 8.6 MG TAB PO SCH (21:00)
[2017-11-29] MEDS: LEVOFLOXACIN 750 MG PREMIX INJ 150 ML IV SCH (21:31)
--- NOTE | 2017-11-29 23:46 | HHI.PR ---
Subjective Remarks F/U SHAWN Objective Vitals Vital Signs Date Time Temp Pulse Resp B/P (MAP) Pulse Ox O2 Delivery O2 Flow Rate FiO2 11/29/17 19:56 98.1 71 18 108/55 (72) 99 11/29/17 19:18 97.8 72 20 120/60 (80) 99 Room Air 11/29/17 18:45 11/29/17 18:30 71 20 118/58 (78) 99 Room Air 11/29/17 16:30 72 20 126/62 (83) 100 Room Air 11/29/17 16:15 18 11/29/17 15:11 99 Room Air 11/29/17 15:11 99 Room Air 11/29/17 14:38 73 18 99 Room Air 11/29/17 14:38 98.9 70 20 124/58 (80) 100 Room Air 11/29/17 14:31 98.9 72 18 124/58 (80) 98 Result Diagram: 11/29/17 1450 11/29/17 1450 Imaging Last Impressions Chest X-Ray 11/29/17 1442 Signed Impressions: CONCLUSION: Tiny left effusion. Objective Remarks GENERAL: NAD, A&Ox3 HEAD: Normocephalic. NECK: Supple, trachea midline. No lymphadenopathy. EYES: No scleral icterus. No injection or drainage. CARDIOVASCULAR: Regular rate and rhythm without murmurs, gallops, or rubs. RESPIRATORY: Breath sounds equal bilaterally. No accessory muscle use. GASTROINTESTINAL: Abdomen soft, non-tender, nondistended. MUSCULOSKELETAL: No cyanosis, or edema. SKIN: Warm and dry. NEURO: No focal neurological deficits. Procedures None A/P Problem List: (1) Urinary tract infection ICD Code: N39.0 - Urinary tract infection, site not specified (2) Dehydration ICD Code: E86.0 - Dehydration (3) Acute kidney injury ICD Code: N17.9 - Acute kidney failure, unspecified Status: Acute Assessment and Plan 87-year-old male admitted secondary to weakness, fever, acute kidney injury with dehydration, UTI. Urinary tract infection Fevers (outpatient) Start Levaquin Probiotic Follow clinically for improvement Consider discharge if improving Monitor for fevers Weakness PT evaluation in AM Acute kidney injury Dehydration Follow renal function IV hydration Coronary artery disease Atrial fibrillation Chronic anticoagulation Follow on telemetry Continue baseline treatments Hyperlipidemia Continue present treatment Follow as an outpatient Hypertension Continue baseline treatment Follow blood pressures Adjust treatments as needed Osteoarthritis Gastroesophageal reflux disease COPD No exacerbations of these conditions No change to baseline treatment DVT prophylaxis SCDs for now, given renal function compromise Clovis Ellison MD November 29, 2017 23:46
[2017-11-30] MEDS ORDERED: NITROGLYCERIN 0.4 MG SL 25 TABS/BTL SL PRN
[2017-11-30] MEDS ORDERED: BUDESONIDE-FORMOTEROL 80/4.5 MCG INHALER INH PRN
[2017-11-30 03:47] VITALS: BP 110/59; PULSE 71; RESP 16; TEMP 97.9; O2SAT 98
[2017-11-30 07:21] VITALS: BP 141/65; PULSE 70; RESP 16; TEMP 97.4; O2SAT 100
[2017-11-30 07:55] LABS: AUTOMATED NEUTROPHIL # 6.5 TH/MM3 (1.8-7.7); BASOPHIL % 0.3 % (0.0-2.0); EOSINOPHIL % 0.5 % (0.0-4.0); HEMATOCRIT 28.1 % (39.0-51.0); HEMOGLOBIN 9.4 GM/DL (13.0-17.0); LYMPH % 13.2 % (9.0-44.0); LYMPHOCYTE # 1.2 TH/MM3 (1.0-4.8); MEAN CELL VOLUME 92.3 FL (80.0-100.0); MEAN CORPUSCULAR HGB CONC 33.6 % (32.0-36.0); MONO % 13.1 % (0.0-8.0); MONOCYTE # 1.2 TH/MM3 (0-0.9); NEUT % 72.9 % (16.0-70.0); PLATELET COUNT 179 TH/MM3 (150-450); RED BLOOD COUNT 3.04 MIL/MM3 (4.50-5.90); RED CELL DISTRIBUTION WIDTH 13.3 % (11.6-17.2); WHITE BLOOD COUNT 8.9 TH/MM3 (4.0-11.0)
[2017-11-30] MEDS: SODIUM CHLOR 0.9% 1000 ML INJ 1,000 ML IV SCH ×2 (08:12→19:54)
[2017-11-30 08:39] LABS: CALCIUM 8.5 MG/DL (8.5-10.1); CREATININE 0.9 MG/DL (0.60-1.30)
[2017-11-30] MEDS: DOCUSATE SODIUM 50 MG/SENNA 8.6 MG TAB PO SCH ×2 (09:00→21:00)
[2017-11-30] MEDS: SODIUM CHLORIDE 0.9% FLUSH 10 ML FLUSH IV FLUSH SCH ×2 (09:00→21:00)
[2017-11-30] MEDS: PRAVASTATIN SOD 80 MG TAB PO SCH (09:23)
[2017-11-30] MEDS: APIXABAN 5 MG TABLET PO SCH ×2 (09:24→22:53)
[2017-11-30] MEDS: LACTOBACILLUS ACIDOPHILUS TAB PO SCH ×3 (09:24→18:52)
[2017-11-30] MEDS: FERROUS SULFATE 325 MG (65 MG ELEMENTAL IRON) TAB PO SCH ×2 (09:24→22:54)
[2017-11-30] MEDS: METOPROLOL SUCCINATE 50 MG EXTENDED RELEASE TAB PO SCH (09:24)
--- NOTE | 2017-11-30 09:34 | HHI.DCPOC ---
Discharge Care Plan Diagnosis: (1) Acute kidney injury Your Health Problems Are: Difficulty with ADL Exercise Tolerance Goals to Promote Your Health * To prevent worsening of your condition and complications * To maintain your health at the optimal level Directions to Meet Your Goals Take your medications as prescribed Follow your dietary instruction Follow activity as directed Keep your appointments as scheduled Take your immunizations and boosters as scheduled If your symptoms worsen call your PCP, if no PCP go to Urgent Care Center or Emergency Room Smoking is Dangerous to Your Health. Avoid second hand smoke Call the 24-hour hour crisis hotline for domestic abuse at Clovis Ellison MD November 30, 2017 09:34
--- NOTE | 2017-11-30 09:34 | HHI.FF ---
Face to Face Verification Diagnosis: (1) Acute kidney injury Physical Therapy Order: Evaluate and Treat, Improve ambulation, Strength and gait training I have seen patient Kael Trevizo on 11/30/17. My clinical findings support the need for the requested home health care services because: Deconditioned w/ increased weakness I certify that my clinical findings support that this patient is homebound because: Unsafe to leave home unassisted Need for psychosocial assistance Clovis Ellison MD November 30, 2017 09:34
--- NOTE | 2017-11-30 10:00 | HHI.PR ---
Subjective Remarks Follow-up acute kidney injury. Patient not on any new medicine however he has poor water intake Objective Vitals Vital Signs Date Time Temp Pulse Resp B/P (MAP) Pulse Ox O2 Delivery O2 Flow Rate FiO2 11/30/17 07:21 97.4 70 16 141/65 (90) 100 11/30/17 03:47 97.9 71 16 110/59 (76) 98 11/29/17 23:42 97.7 70 16 118/58 (78) 98 11/29/17 19:56 98.1 71 18 108/55 (72) 99 11/29/17 19:18 97.8 72 20 120/60 (80) 99 Room Air 11/29/17 18:45 11/29/17 18:30 71 20 118/58 (78) 99 Room Air 11/29/17 16:30 72 20 126/62 (83) 100 Room Air 11/29/17 16:15 18 11/29/17 15:11 99 Room Air 11/29/17 15:11 99 Room Air 11/29/17 14:38 73 18 99 Room Air 11/29/17 14:38 98.9 70 20 124/58 (80) 100 Room Air 11/29/17 14:31 98.9 72 18 124/58 (80) 98 I/O 11/29/17 11/29/17 11/29/17 11/30/17 11/30/17 11/30/17 07:00 15:00 23:00 07:00 15:00 23:00 # Voids 1 Result Diagram: 11/30/17 0633 11/30/17 0633 Imaging Last Impressions Chest X-Ray 11/29/17 1442 Signed Impressions: CONCLUSION: Tiny left effusion. Objective Remarks GENERAL: NAD, A&Ox3 HEAD: Normocephalic. CARDIOVASCULAR: Regular rate and rhythm without murmurs, gallops, or rubs. RESPIRATORY: Breath sounds equal bilaterally. No accessory muscle use. GASTROINTESTINAL: Abdomen soft, non-tender, nondistended. MUSCULOSKELETAL: No cyanosis, or edema. SKIN: Warm and dry. NEURO: No focal neurological deficits. Procedures None A/P Problem List: (1) Urinary tract infection ICD Code: N39.0 - Urinary tract infection, site not specified (2) Dehydration ICD Code: E86.0 - Dehydration (3) Acute kidney injury ICD Code: N17.9 - Acute kidney failure, unspecified Status: Acute Assessment and Plan 87-year-old male admitted secondary to weakness, fever, acute kidney injury with dehydration, UTI. Urinary tract infection Fevers (outpatient) Ct Levaquin Probiotic Follow clinically for improvement Consider discharge if improving Monitor for fevers Cx NGTD Weakness PT consulted Acute kidney injury. Improving around Dehydration secondary to decreased oral intake Follow renal function IV hydration Avoid nephrotoxins Coronary artery disease Atrial fibrillation Chronic anticoagulation Follow on telemetry Continue baseline treatments Hyperlipidemia Continue present treatment Follow as an outpatient Hypertension Continue baseline treatment Follow blood pressures Adjust treatments as needed Osteoarthritis Gastroesophageal reflux disease COPD No exacerbations of these conditions No change to baseline treatment DVT prophylaxis SCDs for now, given renal function compromise Discharge Planning HHC vs op PT possible dc in Clovis Ellison MD November 30, 2017 10:00
[2017-11-30 11:21] VITALS: BP 117/56; PULSE 70; RESP 18; TEMP 97.6; O2SAT 100
--- NOTE | 2017-11-30 14:06 | EKG ---
Date Performed: 11/29/2017 Time Performed: 14:36:18 PTAGE: 87 years EKG: ELECTRONIC VENTRICULAR PACEMAKER ABNORMAL RHYTHM ECG Since PREVIOUS TRACING , no significant change noted PREVIOUS TRACIN07/01/2017 09.35 DOCTOR: Joe Saunders Interpretating Date/Time 11/30/2017 14:04:34
[2017-11-30 15:23] VITALS: PULSE 72
[2017-11-30 16:06] VITALS: BP 134/60; PULSE 70; RESP 20; TEMP 98; O2SAT 99
[2017-11-30 20:17] VITALS: BP 131/62; PULSE 77; RESP 16; TEMP 97.4; O2SAT 94
[2017-11-30] MEDS: LEVOFLOXACIN 750 MG PREMIX INJ 150 ML IV SCH (22:53)
[2017-12-01 00:20] VITALS: BP 139/63; PULSE 70; RESP 18; TEMP 98.9; O2SAT 99
[2017-12-01 04:44] VITALS: BP 116/56; PULSE 73; RESP 17; TEMP 98.2; O2SAT 97
[2017-12-01 06:55] LABS: BICARBONATE 20.9 MEQ/L (21.0-32.0); CALCIUM 8.3 MG/DL (8.5-10.1); CREATININE 0.7 MG/DL (0.60-1.30); MAGNESIUM 1.4 MG/DL (1.5-2.5)
[2017-12-01] MEDS: DOCUSATE SODIUM 50 MG/SENNA 8.6 MG TAB PO SCH (08:42)
[2017-12-01] MEDS: APIXABAN 5 MG TABLET PO SCH (08:43)
[2017-12-01] MEDS: FERROUS SULFATE 325 MG (65 MG ELEMENTAL IRON) TAB PO SCH (08:43)
[2017-12-01] MEDS: METOPROLOL SUCCINATE 50 MG EXTENDED RELEASE TAB PO SCH (08:43)
[2017-12-01] MEDS: PRAVASTATIN SOD 80 MG TAB PO SCH (08:43)
[2017-12-01] MEDS: LACTOBACILLUS ACIDOPHILUS TAB PO SCH (08:43)
[2017-12-01] MEDS: SODIUM CHLORIDE 0.9% FLUSH 10 ML FLUSH IV FLUSH SCH (08:44)
[2017-12-01 08:45] VITALS: BP 130/60; PULSE 74; RESP 20; TEMP 98.2; O2SAT 98
[2017-12-01] MEDS ORDERED: POTASSIUM CHLORIDE 20 MEQ CONTROLLED RELEASE TAB PO ONE (09:30)
[2017-12-01] MEDS ORDERED: MAGNESIUM OXIDE 400 MG TAB PO SCH (09:30)
[2017-12-01] MEDS ORDERED: LEVOFLOXACIN 250 MG TAB PO ONE (10:15)
--- NOTE | 2017-12-01 10:24 | HHI.PR ---
Subjective Remarks Follow-up acute kidney injury. He feels much better. He wants to go home. He refuses home care and outpatient therapy. Objective Vitals Vital Signs Date Time Temp Pulse Resp B/P (MAP) Pulse Ox O2 Delivery O2 Flow Rate FiO2 12/01/17 08:45 98.2 74 20 130/60 (83) 98 12/01/17 04:44 98.2 73 17 116/56 (76) 97 12/01/17 00:20 98.9 70 18 139/63 (88) 99 11/30/17 20:17 97.4 77 16 131/62 (85) 94 11/30/17 16:06 98.0 70 20 134/60 (84) 99 11/30/17 15:23 72 11/30/17 11:21 97.6 70 18 117/56 (76) 100 I/O 11/30/17 11/30/17 11/30/17 12/01/17 12/01/17 12/01/17 07:00 15:00 23:00 07:00 15:00 23:00 Intake Total 756 ml Output Total 500 ml Balance 756 ml -500 ml Intake IV Total 756 ml Output Urine Total 500 ml # Voids 1 1 Result Diagram: 11/30/17 0633 12/01/17 0608 Imaging Last Impressions Chest X-Ray 11/29/17 1442 Signed Impressions: CONCLUSION: Tiny left effusion. Objective Remarks GENERAL: NAD, A&Ox3 HEAD: Normocephalic. CARDIOVASCULAR: Regular rate and rhythm without murmurs, gallops, or rubs. RESPIRATORY: Breath sounds equal bilaterally. No accessory muscle use. GASTROINTESTINAL: Abdomen soft, non-tender, nondistended. MUSCULOSKELETAL: No cyanosis, or edema. SKIN: Warm and dry. NEURO: No focal neurological deficits. Procedures None A/P Problem List: (1) Urinary tract infection ICD Code: N39.0 - Urinary tract infection, site not specified (2) Dehydration ICD Code: E86.0 - Dehydration (3) Acute kidney injury ICD Code: N17.9 - Acute kidney failure, unspecified Status: Acute Assessment and Plan 87-year-old male admitted secondary to weakness, fever, acute kidney injury with dehydration, UTI. Urinary tract infection Fevers (outpatient) We will give last dose of Levaquin today Probiotic Monitor for fevers Cx NGTD Weakness secondary to dehydration PT consulted, patient refused home care or outpatient therapy Acute kidney injury. Improving Dehydration secondary to decreased oral intake Follow renal function IV hydration Avoid nephrotoxins continue to hold lisinopril, Aldactone and Lasix until seen by PCP Coronary artery disease Atrial fibrillation Chronic anticoagulation Follow on telemetry Continue baseline treatments Hyperlipidemia Continue present treatment Follow as an outpatient Hypertension Continue baseline treatment Follow blood pressures Adjust treatments as needed Osteoarthritis Gastroesophageal reflux disease COPD No exacerbations of these conditions No change to baseline treatment DVT prophylaxis SCDs for now, given renal function compromise Discharge Planning Discharge patient to home Condition on discharge: Improved Regular Diet as tolerated Ad Lizbet activity no driving Rx written: None Follow-up with primary care physician Clovis Ellison MD December 01, 2017 10:24
[2017-12-01] MEDS ORDERED: MAGNESIUM OXIDE 400 MG TAB PO ONE (11:10)
== END 2017-12-01 14:06 | disposition home or self-care (01) ==
LOC: NEPE 14:28 → NEDA 17:22 → NEPHCDU 19:54
PROVIDERS: ADMIT Internal Medicine; ATTEND Internal Medicine
DX: R50.9 Fever, unspecified (principal); J00 Acute nasopharyngitis [common cold]; E86.0 Dehydration; R26.2 Difficulty in walking, not elsewhere classified; I48.91 Unspecified atrial fibrillation; I11.0 Hypertensive heart disease with heart failure; I50.9 Heart failure, unspecified; N17.9 Acute kidney failure, unspecified; J44.9 Chronic obstructive pulmonary disease, unspecified; Z95.0 Presence of cardiac pacemaker; Z79.01 Long term (current) use of anticoagulants
CPT/HCPCS: 71046; 80048; 80053; 81001; 82948; 83605; 83735; 84484; 85025; 87040; 87086; 87804; 93005; 94664; 96361; 96365; 96366; 97161; 99285; G0378; G8987; G8988; J1956; J7030; J7040

== ENCOUNTER 2017-12-07 08:47 | Observation (INO) | payer MEDICARE, BC, OTHER ==
[2017-12-07] VITALS (9 sets, daily range): BP systolic 98–123; BP diastolic 47–59; PULSE 68–70; RESP 18–20; TEMP 97.2–97.9; O2SAT 94–100
[~2017-12-07] VITALS: Ht 175.3 cm; Wt 71.0 kg
[~2017-12-07 08:47] MED LIST changes: -NORC5TAB PO; -PRIL20TA2
--- NOTE | 2017-12-07 09:21 | PD ---
HPI Chief Complaint: Fall Time Seen by Provider: 09:09 Travel History International Travel<30 days: No Contact w/Intl Traveler<30days: No Traveled to known affect area: No History of Present Illness HPI 87yo M with PMH of COPD, CHF, CAD s/p CABG, afib on eliquis presents to the ED with c/o bilateral lower extremity weakness and numbness for 1 week. Said he fell at 8pm last night and could not get up so was on the floor all night. Denies any head trauma, LOC, dizziness, chest pain, sob, n/v, abdominal pain. Said he was dehydrated about 1 week ago. PFSH Past Medical History Hx Anticoagulant Therapy: Yes (ELIQUIS) Arthritis: Yes Asthma: No Blood Disorders: No Heart Rhythm Problems: Yes Cancer: No Cardiac Catheterization: Yes Cardiovascular Problems: Yes High Cholesterol: Yes Chemotherapy: No Chest Pain: No Congestive Heart Failure: No COPD: No Coronary Artery Disease: Yes Diabetes: No Endocrine: No Gastrointestinal Disorders: No GERD: Yes Genitourinary: Yes (urines 4 x nightly, prostate) Hepatitis: No Hiatal Hernia: No Hypertension: Yes (and chol) Immune Disorder: No Implanted Vascular Access Dvce: Yes Kidney Stones: No Musculoskeletal: Yes (arthritis) Neurologic: No Psychiatric: No Reproductive: No Respiratory: Yes (copd,chf) Radiation Therapy: No Renal Failure: No Sleep Apnea: No Thyroid Disease: No Influenza Vaccination: Yes Past Surgical History Abdominal Surgery: No AICD: Yes Arteriovenous Shunt: No Body Medical Devices: ANA pacemaker Cardiac Surgery: Yes (quadruple bypass 2007, Difib. 2009, PACEMAKER) Coronary Artery Bypass Graft: Yes Ear Surgery: No Endocrine Surgery: No Eye Surgery: Yes (bilat cat) Genitourinary Surgery: No Gynecologic Surgery: No Insulin Pump: No Joint Replacement: Yes (LEFT KNEE AND RIGHT TOTAL KNEE) Oral Surgery: Yes (Tooth exctrations years ago ) Pacemaker: No Thoracic Surgery: Yes (left upper chest difibulator ) Other Surgery: Yes Social History Alcohol Use: Yes (OCCASIONALLY) Tobacco Use: No (QUIT 60 YEARS AGO) Substance Use: No Allergies-Medications (Allergen,Severity, Reaction): Coded Allergies: hydrochlorothiazide (Verified Allergy, Unknown, 12/07/17) intolerance per chart-patient denies triamterene (Verified Allergy, Unknown, 12/07/17) intolerance per chart-patient denies MRI PRECAUTION (Verified Adverse Reaction, Severe, NON CONDITIONAL PACER KMD 01/10/17, 12/07/17) PT HAS AN ADAPTA NON CONDITIONAL PACEMAKER BY [employer] Reported Meds & Prescriptions Reported Meds & Active Scripts Active Ferosul (Ferrous Sulfate) 325 Mg (65 Mg Iron) Tablet 325 Mg PO BID 30 Days Eliquis (Apixaban) 5 Mg Tab 5 Mg PO BID Centrum Silver Adult 50+ (Multiple Vitamins W/ Minerals) 1 Tab Tab 1 Tab PO DAILY 30 Days Vitamin D-3 (Cholecalciferol) 1,000 Unit Cap 1 Cap PO DAILY 30 Days Vitamin C (Ascorbic Acid) 1,000 Mg Tablet.er 1 Tab PO DAILY 30 Days Symbicort Inh (Budesonide/Formoterol Fumarate) 80-4.5 Mcg/Act Aero 2 Puff INH Q12HR PRN Tamsulosin (Tamsulosin HCl) 0.4 Mg Cap 0.4 Mg PO HS Finasteride 5 Mg Tab 5 Mg PO HS Do not crush. Amlodipine (Amlodipine Besylate) 10 Mg Tab 10 Mg PO HS Reported Nitroglycerin SL (Nitroglycerin) 0.4 Mg Subl 0.4 Mg SL DIRECTED PRN ONE TABLET UNDER THE TONGUE NEEDED FOR CHEST PAIN, MAY REPEAT EVERY FIVE MINUTES FOR A TOTAL OF 3 DOSES OR CALL 911 IF NO RELIEF Fish Oil + D3 (Fish Oil-Cholecalciferol) 1,200-1,000 Mg-Unit Cap 1 Cap PO DAILY Coq-10 (Coenzyme Q10 (Ubidecarenone)) 400 Mg Cap 200 Mg PO DAILY Toprol XL (Metoprolol Succinate) 50 Mg Tab 50 Mg PO DAILY Lisinopril 20 Mg Tab 70 Mg PO DAILY Pravastatin 80 Mg Tab 80 Mg PO DAILY Prilosec (Omeprazole Magnesium) 20 Mg Tab 0.5 Tab PO PRN Review of Systems Except as stated in HPI: all other systems reviewed are Neg Physical Exam Narrative GENERAL: 87yo M in mild distress. SKIN: Focused skin assessment warm/dry. HEAD: Atraumatic. Normocephalic. EYES: Pupils equal and round at 3mm bilaterally. EOMI. ENT: No nasal bleeding or discharge. Mucous membranes pink and moist. NECK: No cervical spine ttp. CARDIOVASCULAR: Regular rate and rhythm. No murmur appreciated. RESPIRATORY: No accessory muscle use. Clear to auscultation. Breath sounds equal bilaterally. GASTROINTESTINAL: Abdomen soft, non-tender, nondistended. BACK: No midline ttp thoracic or lumbar spine. No ttp bilateral hips. MUSCULOSKELETAL: No obvious deformities. No clubbing. No cyanosis. No edema. NEUROLOGICAL: Awake and alert. No obvious cranial nerve deficits. Motor grossly within normal limits in all extremities. Sensation decreased in bilateral lower extremity. Normal speech. PSYCHIATRIC: Appropriate mood and affect; insight and judgment normal. Data Data Last Documented VS Vital Signs Date Time Temp Pulse Resp B/P (MAP) Pulse Ox O2 Delivery O2 Flow Rate FiO2 12/07/17 12:05 70 18 120/52 (74) 97 Room Air 12/07/17 08:[address] Brain W/O Iv Contrast(Rout) (12/07/17 ) Complete Blood Count With Diff (12/07/17 09:19) Basic Metabolic Panel (Bmp) (12/07/17 09:19) Creatine Kinase (Cpk) (12/07/17 09:19) Prothrombin Time / Inr (Pt) (12/07/17 09:19) Act Partial Throm Time (Ptt) (12/07/17 09:19) Electrocardiogram (12/07/17 ) Urinalysis - C+S If Indicated (12/07/17 09:19) Knee, Ltd (1 Or 2vws) (12/07/17 ) Tetanus/Diphtheria Tox Adult (Tetanus/Di (12/07/17 09:30) CKMB (12/07/17 09:30) CKMB% (12/07/17 09:30) Sodium Chlorid 0.9% 500 Ml Inj (Ns 500 M (12/07/17 10:30) Cath For Specimen (12/07/17 11:45) Admit Order (Ed Use Only) (12/07/17 12:53) Labs Laboratory Tests Test 12/07/17 09:30 12/07/17 12:00 White Blood Count 17.2 TH/MM3 Red Blood Count 3.26 MIL/MM3 Hemoglobin 10.0 GM/DL Hematocrit 29.8 % Mean Corpuscular Volume 91.3 FL Mean Corpuscular Hemoglobin 30.6 PG Mean Corpuscular Hemoglobin Concent 33.5 % Red Cell Distribution Width 12.4 % Platelet Count 224 TH/MM3 Mean Platelet Volume 9.5 FL Neutrophils (%) (Auto) 89.2 % Lymphocytes (%) (Auto) 4.9 % Monocytes (%) (Auto) 5.5 % Eosinophils (%) (Auto) 0.1 % Basophils (%) (Auto) 0.3 % Neutrophils # (Auto) 15.4 TH/MM3 Lymphocytes # (Auto) 0.8 TH/MM3 Monocytes # (Auto) 0.9 TH/MM3 Eosinophils # (Auto) 0.0 TH/MM3 Basophils # (Auto) 0.1 TH/MM3 CBC Comment DIFF FINAL Differential Comment Prothrombin Time 15.3 SEC Prothromb Time International Ratio 1.5 RATIO Activated Partial Thromboplast Time 37.1 SEC Blood Urea Nitrogen 21 MG/DL Creatinine 1.40 MG/DL Random Glucose 167 MG/DL Calcium Level 8.5 MG/DL Sodium Level 134 MEQ/L Potassium Level 4.4 MEQ/L Chloride Level 104 MEQ/L Carbon Dioxide Level 19.8 MEQ/L Anion Gap 10 MEQ/L Estimat Glomerular Filtration Rate 48 ML/MIN Total Creatine Kinase 462 U/L Creatine Kinase MB 8.5 NG/ML Creatine Kinase MB % 1.8 % Urine Collection Type CLEAN CATCH Urine Color YELLOW Urine Turbidity SL CLOUDY Urine pH 5.5 Urine Specific [place] GREATER/EQUAL 1.030 Urine Protein 30 mg/dL Urine Glucose (UA) NEG mg/dL Urine Ketones NEG mg/dL Urine Occult Blood NEG Urine Nitrite NEG Urine Bilirubin NEG Urine Urobilinogen 0.2 MG/DL Urine Leukocyte Esterase NEG Urine WBC 0-2 /hpf Urine Squamous Epithelial Cells 6-8 /hpf Urine Amorphous Sediment MOD Urine Hyaline Casts 0-2 /lpf Microscopic Urinalysis Comment CULT NOT INDICATED Urine Collection Time 1200 MDM Medical Decision Making Medical Screen Exam Complete: Yes Emergency Medical Condition: Yes Interpretation(s) EKG: Paced ventricular rhythm at 70bpm. No concordance. Differential Diagnosis Rhabdomyolysis vs. dehydration vs. CVA Narrative Course 87yo M was brought here by [facility] because he fell last night and was not able to get up. Pt lives by himself and said his leg just gave out. Has been having bilateral leg weakness and numbness for 1 week prior to the fall. Denies any head trauma. Labs reviewed, leukocytosis at 17.2. H/H low at 10/29.8 which is his baseline. BUN/creatinine elevated at 21/1.40 which is double what it was on 12/01/17. CPK elevated at 462. CT brain negative. Xray left knee showed no evidence of fracture or hardware complication. Pt was just admitted 11/29 for SHAWN, dehydration and given levaquin for UTI. At that time, it was noted that he had weakness to the degree he could not walk but he told me the weakness was new. It was noted that he had bilateral lower extremity weakness at the time as well. The urine culture from 11/29 showed no growth though. Discussed with Dr. Muniz's PA and accepted to her service. Diagnosis Primary Impression: Dehydration Additional Impression: SHAWN (acute kidney injury) Admitting Information Admitting Physician Requests: Jaclyn Napier DO Dec 07, 2017 09:21
[2017-12-07] MEDS ORDERED: TETANUS/DIPHTHERIA TOXOID ADULT 0.5 ML VIAL IM ONE (09:30)
[2017-12-07 09:44] LABS: AUTOMATED NEUTROPHIL # 15.4 TH/MM3 (1.8-7.7); BASOPHIL # 0.1 TH/MM3 (0-0.2); BASOPHIL % 0.3 % (0.0-2.0); EOSINOPHIL % 0.1 % (0.0-4.0); HEMATOCRIT 29.8 % (39.0-51.0); LYMPH % 4.9 % (9.0-44.0); LYMPHOCYTE # 0.8 TH/MM3 (1.0-4.8); MEAN CELL VOLUME 91.3 FL (80.0-100.0); MEAN CORPUSCULAR HEMOGLOBIN 30.6 PG (27.0-34.0); MEAN CORPUSCULAR HGB CONC 33.5 % (32.0-36.0); MEAN PLATELET VOLUME 9.5 FL (7.0-11.0); MONO % 5.5 % (0.0-8.0); MONOCYTE # 0.9 TH/MM3 (0-0.9); NEUT % 89.2 % (16.0-70.0); PLATELET COUNT 224 TH/MM3 (150-450); RED BLOOD COUNT 3.26 MIL/MM3 (4.50-5.90); RED CELL DISTRIBUTION WIDTH 12.4 % (11.6-17.2); WHITE BLOOD COUNT 17.2 TH/MM3 (4.0-11.0)
--- NOTE | 2017-12-07 09:55 | RADRPT ---
EXAM DATE: 12/07/2017 9:49 AM EDT AGE/SEX: 87 years / Male INDICATIONS: Fell on knees last pm CLINICAL DATA: This is the patient's initial encounter. Patient reports that signs and symptoms have been present for 1 day and indicates a pain score of 5/10. MEDICAL/SURGICAL HISTORY: None. Total knee replacement, left. Total knee replacement, right. P ort placement. Open heart surgery. COMPARISON: No prior [facility] exams available for comparison. FINDINGS: Bony structures are intact and in normal alignment. There is a knee prosthesis present which is yaritza l in orientation without evidence of loosening. The bones are diffusely osteopenic. No evidence of fr acture. Soft tissues are significant for extensive atherosclerosis. No evidence of joint effusion. CONCLUSION: No evidence of fracture or hardware complication. Electronically signed by: Sheree Felton MD 12/07/2017 9:54 AM EDT
[2017-12-07 09:58] LABS: BICARBONATE 19.8 MEQ/L (21.0-32.0); CALCIUM 8.5 MG/DL (8.5-10.1)
[2017-12-07 10:00] LABS: INTERNATIONAL NORMALIZED RATIO 1.5 RATIO; PROTHROMBIN TIME - PATIENT 15.3 SEC (9.8-11.6)
[2017-12-07 10:02] LABS: CREATININE 1.4 MG/DL (0.60-1.30)
--- NOTE | 2017-12-07 10:22 | RADRPT ---
EXAM DATE: 12/07/2017 10:05 AM EDT AGE/SEX: 87 years / Male INDICATIONS: Bilateral lower extremity weakness. Found on floor since legs gave out on him last nigh t. CLINICAL DATA: This is the patient's initial encounter. Patient reports that signs and symptoms have been present for 2 days and indicates a pain score of 0/10. MEDICAL/SURGICAL HISTORY: Cardiovascular disease. Hypertension. Anticoagulant therapy. CABG. Pac emaker. RADIATION DOSE: 60.13 CTDI (mGy) COMPARISON: No prior [facility] exams available for comparison. TECHNIQUE: CT of the head without contrast. Using automated exposure control and adjustment of the mA and/or kV according to patient size, radiation dose was kept as low as reasonably achievable to ob tain optimal diagnostic quality images. FINDINGS: Cerebrum: The ventricles are normal for age. No evidence of midline shift, mass lesion, hemorrhage or acute infarction. No extraaxial fluid collections are seen. Posterior Fossa: The cerebellum and brainstem are intact. The 4th ventricle is midline. The cerebe llopontine angle is unremarkable. Extracranial: The visualized portion of the orbits is intact. Skull: The calvaria is intact. No evidence of skull fracture. CONCLUSION: 1. Negative CT Head non contrast. Electronically signed by: Sheree Felton MD 12/07/2017 10:21 AM EDT
[2017-12-07] MEDS ORDERED: SODIUM CHLORID 0.9% 500 ML INJ 500 ML IV ONE (10:30)
[2017-12-07 12:08] LABS: BILIRUBIN, URINE NEG (NEG); BLOOD, URINE NEG (NEG); GLUCOSE,URINE NEG (NEG); KETONE, URINE NEG (NEG); NITRITE,URINE NEG (NEG); PH, URINE 5.5 (5.0-8.5); URINE COLOR YELLOW (YELLW/STRAW); URINE LEUKOCYTE ESTERASE NEG (NEG)
[2017-12-07 12:15] LABS: AMORPHOUS SEDIMENT, URINE MOD; HYALINE CAST, URINE 0-2 /lpf (RARE); WBC, URINE 0-2 /hpf (0-5)
--- NOTE | 2017-12-07 13:26 | HHI.HP ---
[facility] Primary Care Physician Bernabe Kemp MD Admission Diagnosis Dehydration, SHAWN Diagnoses: (1) SHAWN (acute kidney injury) (2) Dehydration Chief Complaint: Fall at home Lower leg weakness Dehydration Travel History International Travel<30 Days: No Contact w/Intl Traveler <30 Da: No Traveled to Known Affected Are: No History of Present Illness This is a pleasant 87-year-old male patient with a known medical history of COPD , CHF, CAD status post CABG, atrial fibrillation on Eliquis who presented to the ED with complaints of bilateral lower extremity weakness status post fall at home. Patient was recently admitted on November 29, 2017 with acute kidney injury and dehydration. Patient was discharged home with recommendations for home health care although patient refused home health care efforts. Patient states that he lives home alone in a condo and since hospitalization patient states he has not been eating very much, with low appetite and low p.o. intake. Patient denies any other complaints including fever, chills, cough, headache, shortness of breath, dizziness, lightheadedness, chest pain, shortness of breath , abdominal pain, nausea, vomiting, diarrhea or dysuria. Patient does state that last evening he felt like his legs gave out on him and he fell to the floor. He reports he was on the floor all night last evening. Denies any loss of consciousness or hitting his head. Patient states that his POA is his niece in [place]. Review of Systems Constitutional: COMPLAINS OF: Fatigue, DENIES: Diaphoretic episodes, Fever, Chills, Dizziness Eyes: DENIES: Diplopia Respiratory: DENIES: Cough, Sputum production, Shortness of breath Cardiovascular: DENIES: Chest pain, Palpitations, Dyspnea on Exertion, Lower Extremity Edema Gastrointestinal: DENIES: Abdominal pain, Black stools, Bloody stools, Constipation, Diarrhea, Nausea, Vomiting Musculoskeletal: DENIES: Joint pain Immunologic/allergic: DENIES: Eczema Neurologic: COMPLAINS OF: Abnormal gait, Poor Balance Psychiatric: DENIES: Anxiety Except as stated in HPI: all other systems reviewed are Neg Past Family Social History Past Medical History Coronary artery disease Atrial fibrillation Chronic anticoagulation Hyperlipidemia Osteoarthritis Gastroesophageal reflux disease Hypertension COPD Past Surgical History AICD Quadruple bypass in 2008 Bilateral cataract surgery Left knee arthroplasty Right knee arthroplasty Tooth extractions Reported Medications Active Ferosul (Ferrous Sulfate) 325 Mg (65 Mg Iron) Tablet 325 Mg PO BID 30 Days Eliquis (Apixaban) 5 Mg Tab 5 Mg PO BID Centrum Silver Adult 50+ (Multiple Vitamins W/ Minerals) 1 Tab Tab 1 Tab PO DAILY 30 Days Vitamin D-3 (Cholecalciferol) 1,000 Unit Cap 1 Cap PO DAILY 30 Days Vitamin C (Ascorbic Acid) 1,000 Mg Tablet.er 1 Tab PO DAILY 30 Days Symbicort Inh (Budesonide/Formoterol Fumarate) 80-4.5 Mcg/Act Aero 2 Puff INH Q12HR PRN Tamsulosin (Tamsulosin HCl) 0.4 Mg Cap 0.4 Mg PO HS Finasteride 5 Mg Tab 5 Mg PO HS Do not crush. Amlodipine (Amlodipine Besylate) 10 Mg Tab 10 Mg PO HS Reported Nitroglycerin SL (Nitroglycerin) 0.4 Mg Subl 0.4 Mg SL DIRECTED PRN ONE TABLET UNDER THE TONGUE NEEDED FOR CHEST PAIN, MAY REPEAT EVERY FIVE MINUTES FOR A TOTAL OF 3 DOSES OR CALL 911 IF NO RELIEF Fish Oil + D3 (Fish Oil-Cholecalciferol) 1,200-1,000 Mg-Unit Cap 1 Cap PO DAILY Coq-10 (Coenzyme Q10 (Ubidecarenone)) 400 Mg Cap 200 Mg PO DAILY Toprol XL (Metoprolol Succinate) 50 Mg Tab 50 Mg PO DAILY Lisinopril 20 Mg Tab 70 Mg PO DAILY Pravastatin 80 Mg Tab 80 Mg PO DAILY Prilosec (Omeprazole Magnesium) 20 Mg Tab 0.5 Tab PO PRN Allergies: Coded Allergies: hydrochlorothiazide (Verified Allergy, Unknown, 12/07/17) intolerance per chart-patient denies triamterene (Verified Allergy, Unknown, 12/07/17) intolerance per chart-patient denies MRI PRECAUTION (Verified Adverse Reaction, Severe, NON CONDITIONAL PACER KMD 01/10/17, 12/07/17) PT HAS AN TEJAL SANTOS NON CONDITIONAL PACEMAKER BY [employer] Active Ordered Medications Current Medications Medications (Trade) Dose Ordered Sig/Brandon Route Start Time Stop Time Status Last Admin Sodium Chloride 1,000 ml @ 100 mls/hr Q10H IV 12/07/17 13:23 12/07/17 13:34 (NS Flush) 2 ml UNSCH PRN IV FLUSH 12/07/17 13:30 (NS Flush) 2 ml BID IV FLUSH 12/07/17 21:00 (Tylenol) 650 mg Q4H PRN PO 12/07/17 13:30 (Zofran Inj) 4 mg Q6H PRN IVP 12/07/17 13:30 (Narcan Inj) 0.4 mg UNSCH PRN IV PUSH 12/07/17 13:30 (Lo-Colace) 1 tab BID PO 12/07/17 21:00 (Milk Of Magnesia Liq) 30 ml Q12H PRN PO 12/07/17 13:30 (Senokot) 17.2 mg Q12H PRN PO 12/07/17 13:30 (Dulcolax Supp) 10 mg DAILY PRN RECTAL 12/07/17 13:30 Family History Patient reports no medical problems in his family history Social History Denies any tobacco, alcohol or drugs. Physical Exam Vital Signs Vital Signs Date Time Temp Pulse Resp B/P (MAP) Pulse Ox O2 Delivery O2 Flow Rate FiO2 12/07/17 13:10 69 18 111/47 (68) 98 Room Air 12/07/17 12:05 70 18 120/52 (74) 97 Room Air 12/07/17 10:51 68 18 112/52 (72) 97 Room Air 12/07/17 10:21 68 18 98/52 (67) 97 Room Air 12/07/17 08:55 97.9 69 18 107/59 (75) 95 Physical Exam GENERAL: Well-developed, well-nourished elderly male patient in [facility]. SKIN: Warm and dry. Left knee abrasion, covered with dressing, assessed, serosanguineous drainage mild erythema around the edges. HEAD: Normocephalic. Atraumatic. EYES: Pupils equal and round. No scleral icterus. No injection or drainage. ENT: No nasal bleeding or discharge. Mucous membranes pink and moist. NECK: Supple. Trachea midline. CARDIOVASCULAR: Irregularly irregular rhythm. No murmur appreciated. RESPIRATORY: No accessory muscle use. Clear to auscultation. Breath sounds equal bilaterally. GASTROINTESTINAL: Abdomen soft, non-tender, nondistended. Normoactive bowel sounds x4. MUSCULOSKELETAL: No obvious deformities. Extremities without clubbing, cyanosis , or edema. NEUROLOGICAL: Awake and alert. No obvious cranial nerve deficits. Motor grossly within normal limits. 5/5 muscle strength in bilateral upper and lower extremities. Normal speech. PSYCHIATRIC: Appropriate mood and affect; insight and judgment normal. Laboratory Laboratory Tests Test 12/07/17 09:30 12/07/17 12:00 White Blood Count 17.2 Red Blood Count 3.26 Hemoglobin 10.0 Hematocrit 29.8 Mean Corpuscular Volume 91.3 Mean Corpuscular Hemoglobin 30.6 Mean Corpuscular Hemoglobin Concent 33.5 Red Cell Distribution Width 12.4 Platelet Count 224 Mean Platelet Volume 9.5 Neutrophils (%) (Auto) 89.2 Lymphocytes (%) (Auto) 4.9 Monocytes (%) (Auto) 5.5 Eosinophils (%) (Auto) 0.1 Basophils (%) (Auto) 0.3 Neutrophils # (Auto) 15.4 Lymphocytes # (Auto) 0.8 Monocytes # (Auto) 0.9 Eosinophils # (Auto) 0.0 Basophils # (Auto) 0.1 CBC Comment DIFF FINAL Differential Comment Prothrombin Time 15.3 Prothromb Time International Ratio 1.5 Activated Partial Thromboplast Time 37.1 Blood Urea Nitrogen 21 Creatinine 1.40 Random Glucose 167 Calcium Level 8.5 Sodium Level 134 Potassium Level 4.4 Chloride Level 104 Carbon Dioxide Level 19.8 Anion Gap 10 Estimat Glomerular Filtration Rate 48 Total Creatine Kinase 462 Creatine Kinase MB 8.5 Creatine Kinase MB % 1.8 Urine Collection Type CLEAN CATCH Urine Color YELLOW Urine Turbidity SL CLOUDY Urine pH 5.5 Urine Specific [place] GREATER/EQUAL 1.030 Urine Protein 30 Urine Glucose (UA) NEG Urine Ketones NEG Urine Occult Blood NEG Urine Nitrite NEG Urine Bilirubin NEG Urine Urobilinogen 0.2 Urine Leukocyte Esterase NEG Urine WBC 0-2 Urine Squamous Epithelial Cells 6-8 Urine Amorphous Sediment MOD Urine Hyaline Casts 0-2 Microscopic Urinalysis Comment CULT NOT INDICATED Urine Collection Time 1200 Result Diagram: 12/07/17 0930 12/07/17 0930 Imaging Last Impressions Knee X-Ray 12/07/17 0000 Signed Impressions: CONCLUSION: No evidence of fracture or hardware complication. Head CT 12/07/17 0000 Signed Impressions: CONCLUSION: 1. Negative CT Head non contrast. Septic Shock Reassessment Septic shock perfusion: reassessment completed Caprini VTE Risk Assessment Caprini VTE Risk Assessment: Mod/High Risk (score >= 2) Caprini Risk Assessment Model Point Value = 1 Point Value = 2 Point Value = 3 Point Value = 5 Age 41-60 Minor surgery BMI > 25 kg/m2 Swollen legs Varicose veins or History of unexplained or recurrent spontaneous Oral contraceptives or hormone replacement Sepsis (< 1 month) Serious lung disease, including pneumonia (< 1 month) Abnormal pulmonary function Acute myocardial infarction Congestive heart failure (< 1 month) History of inflammatory bowel disease Medical patient at bed rest Age 61-74 Arthroscopic surgery Major open surgery (> 45 min) Laparoscopic surgery (> 45 min) Malignancy Confined to bed (> 72 hours) Immobilizing plaster cast Central venous access Age >= 75 History of VTE Family history of VTE Factor V Leiden Prothrombin [id number] Lupus anticoagulant Anticardiolipin antibodies Elevated serum homocysteine Heparin-induced thrombocytopenia Other congenital or acquired thrombophilia Stroke (< 1 month) Elective arthroplasty Hip, pelvis, or leg fracture Acute spinal cord injury (< 1 month) Prophylaxis Regimen Total Risk Factor Score Risk Level Prophylaxis Regimen 0-1 Low Early ambulation 2 Moderate Order ONE of the following: *Sequential Compression Device (SCD) *Heparin 5000 units SQ BID 3-4 Higher Order ONE of the following medications: *Heparin 5000 units SQ TID *Enoxaparin/Lovenox 40 mg SQ daily (WT < 150 kg, CrCl > 30 mL/min) *Enoxaparin/Lovenox 30 mg SQ daily (WT < 150 kg, CrCl > 10-29 mL/min) *Enoxaparin/Lovenox 30 mg SQ BID (WT < 150 kg, CrCl > 30 mL/min) AND/OR *Sequential Compression Device (SCD) 5 or more Highest Order ONE of the following medications: *Heparin 5000 units SQ TID (Preferred with Epidurals) *Enoxaparin/Lovenox 40 mg SQ daily (WT < 150 kg, CrCl > 30 mL/min) *Enoxaparin/Lovenox 30 mg SQ daily (WT < 150 kg, CrCl > 10-29 mL/min) *Enoxaparin/Lovenox 30 mg SQ BID (WT < 150 kg, CrCl > 30 mL/min) AND *Sequential Compression Device (SCD) Assessment and Plan Problem List: (1) SHAWN (acute kidney injury) ICD Code: N17.9 - Acute kidney failure, unspecified Status: Acute (2) Dehydration ICD Code: E86.0 - Dehydration Assessment and Plan 87-year-old male admitted secondary to weakness, fever, acute kidney injury with dehydration Acute kidney injury secondary to dehydration Generalized weakness with bilateral lower extremity weakness status post fall at home - Was given 500 mL bolus in ED. Will continue IV fluids. Monitor intake and output. - Ensure hydration. Encourage p.o. intake. - Avoid nephrotoxins. Hold HOOD inhibitor for now. - Monitor BMP. - PT eval pending recommendations. History of coronary artery disease status post CABG History of atrial fibrillation on chronic anticoagulation Hypertension, chronic Hyperlipidemia, chronic - Patient reportedly on lisinopril 70 mg daily. Will hold this. Labile blood pressure. - Will continue metoprolol daily. Monitor heart rate and blood pressure trends. - Will continue Eliquis. COPD not in exacerbation: Stable at this time. Will continue home inhalers. DVT prophylaxis: SCDs. Santa Barajas Dec 07, 2017 13:26
[2017-12-07] MEDS ORDERED: SENNOSIDES 8.6 MG TAB PO PRN (13:30)
[2017-12-07] MEDS ORDERED: ACETAMINOPHEN 325 MG TAB PO PRN (13:30)
[2017-12-07] MEDS ORDERED: ONDANSETRON HCL 4 MG/2 ML VIAL IVP PRN (13:30)
[2017-12-07] MEDS ORDERED: MAGNESIUM HYDROXIDE SUSP 30 ML CUP PO PRN (13:30)
[2017-12-07] MEDS ORDERED: BISACODYL 10 MG SUPP RECTAL PRN (13:30)
[2017-12-07] MEDS ORDERED: NALOXONE HCL 0.4 MG/ML AMP IV PUSH PRN (13:30)
[2017-12-07] MEDS ORDERED: SODIUM CHLORIDE 0.9% FLUSH 10 ML FLUSH IV FLUSH PRN (13:30)
[2017-12-07] MEDS: SODIUM CHLOR 0.9% 1000 ML INJ 1,000 ML IV SCH ×2 (13:34→23:41)
[2017-12-07] MEDS ORDERED: BUDESONIDE-FORMOTEROL 80/4.5 MCG INHALER INH PRN (14:30)
[2017-12-07] MEDS: SODIUM CHLORIDE 0.9% FLUSH 10 ML FLUSH IV FLUSH SCH (20:16)
[2017-12-07] MEDS: TAMSULOSIN HCL 0.4 MG CAP PO SCH (20:17)
[2017-12-07] MEDS: FINASTERIDE 5 MG TAB PO SCH (20:18)
[2017-12-07] MEDS: FERROUS SULFATE 325 MG (65 MG ELEMENTAL IRON) TAB PO SCH (20:18)
[2017-12-07] MEDS: APIXABAN 5 MG TABLET PO SCH (20:18)
[2017-12-07] MEDS: DOCUSATE SODIUM 50 MG/SENNA 8.6 MG TAB PO SCH (20:18)
[2017-12-08] VITALS: BP 117/56; PULSE 70; RESP 18; TEMP 96.6; O2SAT 97
[2017-12-08 05:01] LABS: BASOPHIL % 0.2 % (0.0-2.0); EOSINOPHIL % 0.2 % (0.0-4.0); HEMATOCRIT 27.8 % (39.0-51.0); HEMOGLOBIN 9.2 GM/DL (13.0-17.0); LYMPH % 9.9 % (9.0-44.0); LYMPHOCYTE # 1.1 TH/MM3 (1.0-4.8); MEAN CELL VOLUME 91.1 FL (80.0-100.0); MEAN CORPUSCULAR HEMOGLOBIN 30.3 PG (27.0-34.0); MEAN CORPUSCULAR HGB CONC 33.2 % (32.0-36.0); MEAN PLATELET VOLUME 9.6 FL (7.0-11.0); MONO % 8.7 % (0.0-8.0); PLATELET COUNT 206 TH/MM3 (150-450); RED BLOOD COUNT 3.05 MIL/MM3 (4.50-5.90); RED CELL DISTRIBUTION WIDTH 12.5 % (11.6-17.2); WHITE BLOOD COUNT 11.1 TH/MM3 (4.0-11.0)
[2017-12-08 05:10] LABS: CALCIUM 8.1 MG/DL (8.5-10.1)
[2017-12-08 05:11] LABS: BICARBONATE 21.2 MEQ/L (21.0-32.0)
[2017-12-08 05:14] LABS: CREATININE 0.81 MG/DL (0.60-1.30)
[2017-12-08] MEDS: MULTIVITAMINS/MINERALS THERAPEUTIC TAB PO SCH (07:55)
[2017-12-08] MEDS: DOCUSATE SODIUM 50 MG/SENNA 8.6 MG TAB PO SCH ×2 (07:55→20:46)
[2017-12-08] MEDS: PRAVASTATIN SOD 80 MG TAB PO SCH (07:56)
[2017-12-08] MEDS: METOPROLOL SUCCINATE 50 MG EXTENDED RELEASE TAB PO SCH (07:56)
[2017-12-08] MEDS: FERROUS SULFATE 325 MG (65 MG ELEMENTAL IRON) TAB PO SCH ×2 (07:56→20:46)
[2017-12-08] MEDS: SODIUM CHLORIDE 0.9% FLUSH 10 ML FLUSH IV FLUSH SCH ×2 (07:56→19:33)
[2017-12-08] MEDS: APIXABAN 5 MG TABLET PO SCH ×2 (07:56→20:46)
[2017-12-08] MEDS: CHOLECALCIFEROL (VIT D3) 1000 UNIT TAB PO SCH (07:56)
[2017-12-08] MEDS: ASCORBIC ACID 500 MG TAB PO SCH (07:56)
[2017-12-08 08:00] VITALS: BP 114/56; PULSE 69; RESP 20; TEMP 97.8; O2SAT 98
--- NOTE | 2017-12-08 08:27 | HHI.PR ---
Subjective Remarks Follow-up acute kidney injury dehydration. Patient seen and examined, lying in bed comfortably no apparent distress. States he feels much improved. Has been eating well with no nausea or vomiting. Worked with PT this morning, walked over 250 feet. With walker assistance. sql manager assisting with discharge. Home health care versus rehab. Vitals stable overnight. Afebrile. Objective Vitals Vital Signs Date Time Temp Pulse Resp B/P (MAP) Pulse Ox O2 Delivery O2 Flow Rate FiO2 12/08/17 08:00 97.8 69 20 114/56 (75) 98 12/08/17 00:00 96.6 70 18 117/56 (76) 97 12/07/17 20:01 94 21 12/07/17 20:00 97.2 70 18 115/58 (77) 98 12/07/17 14:43 97.5 70 20 123/58 (79) 100 12/07/17 14:10 70 16 115/54 (74) 99 12/07/17 13:10 69 18 111/47 (68) 98 Room Air 12/07/17 12:05 70 18 120/52 (74) 97 Room Air 12/07/17 10:51 68 18 112/52 (72) 97 Room Air 12/07/17 10:21 68 18 98/52 (67) 97 Room Air 12/07/17 08:55 97.9 69 18 107/59 (75) 95 I/O 12/07/17 12/07/17 12/07/17 12/08/17 12/08/17 12/08/17 07:00 15:00 23:00 07:00 15:00 23:00 Intake Total 500 ml 120 ml 1000 ml 240 ml Output Total 300 ml Balance 200 ml 120 ml 1000 ml 240 ml Intake Oral 120 ml 240 ml IV Total 500 ml 1000 ml Output Urine Total 300 ml # Voids 1 Result Diagram: 12/08/17 0405 12/08/17 0405 Imaging Last Impressions Knee X-Ray 12/07/17 0000 Signed Impressions: CONCLUSION: No evidence of fracture or hardware complication. Head CT 12/07/17 0000 Signed Impressions: CONCLUSION: 1. Negative CT Head non contrast. Objective Remarks GENERAL: Well-developed, well-nourished elderly male patient in [facility]. SKIN: Warm and dry. Left knee abrasion, covered with dressing, assessed, serosanguineous drainage mild erythema around the edges. Clean/d/i. HEAD: Normocephalic. Atraumatic. EYES: Pupils equal and round. No scleral icterus. No injection or drainage. ENT: No nasal bleeding or discharge. Mucous membranes pink and moist. NECK: Supple. Trachea midline. CARDIOVASCULAR: Irregularly irregular rhythm. No murmur appreciated. RESPIRATORY: No accessory muscle use. Clear to auscultation. Breath sounds equal bilaterally. GASTROINTESTINAL: Abdomen soft, non-tender, nondistended. Normoactive bowel sounds x4. MUSCULOSKELETAL: No obvious deformities. Extremities without clubbing, cyanosis , or edema. NEUROLOGICAL: Awake and alert. No obvious cranial nerve deficits. Motor grossly within normal limits. 5/5 muscle strength in bilateral upper and lower extremities. Normal speech. PSYCHIATRIC: Appropriate mood and affect; insight and judgment normal. A/P Problem List: (1) SHAWN (acute kidney injury) ICD Code: N17.9 - Acute kidney failure, unspecified Status: Acute (2) Dehydration ICD Code: E86.0 - Dehydration Assessment and Plan 87-year-old male admitted secondary to weakness, fever, acute kidney injury with dehydration Acute kidney injury secondary to dehydration. Resolved. Generalized weakness with bilateral lower extremity weakness status post fall at home, improving. Mild Rhabdomyolysis - Was given 500 mL bolus in ED. Monitor intake and output. - Ensure hydration. Encourage p.o. intake. Tolerating well, will continue 1 more liter of NS. - Avoid nephrotoxins. Hold HOOD inhibitor for now. - Monitor BMP and CPK. - PT eval with recommendations for home health care versus rehab. - Patient is adamant about going home, states he has walker at home in adequate support. Accepts home health care. History of coronary artery disease status post CABG History of atrial fibrillation on chronic anticoagulation Hypertension, chronic Hyperlipidemia, chronic - Patient reportedly on lisinopril 70 mg daily. Will hold this. Labile blood pressure. - Will continue metoprolol daily. Monitor heart rate and blood pressure trends. - Will continue Eliquis. COPD not in exacerbation: Stable at this time. Will continue home inhalers. DVT prophylaxis: SCDs. Eliquis Discharge Planning DC planning, [facility]. DC in am. Patient desires to have one more session of PT in am , still complaints of some weakness today. Santa Rodriguez 4, 2018 08:27
[2017-12-08] MEDS ORDERED: NON-FORMULARY DRUG (Fish Oil-Cholecalciferol (Fish Oil + D3) 1 CAP) PO SCH (09:00)
--- NOTE | 2017-12-08 09:38 | EKG ---
Date Performed: 12/07/2017 Time Performed: 09:28:58 PTAGE: 87 years EKG: ELECTRONIC VENTRICULAR PACEMAKER ABNORMAL RHYTHM ECG PREVIOUS TRACING : 11/29/2017 14.36 Since the previous tracing, no significant change noted DOCTOR: Bernabe Louie Interpretating Date/Time 12/08/2017 09:37:40
--- NOTE | 2017-12-08 10:21 | HHI.FF ---
Face to Face Verification Diagnosis: (1) Dehydration (2) Weakness (3) SHAWN (acute kidney injury) Physical Therapy Order: Evaluate and Treat, Improve ambulation, Strength and gait training Home Health Nursing Order: Signs/symptoms of disease process Medication education-adverse effect Nursing assessment with vital signs I have seen patient Kael Trevizo on 12/08/17. My clinical findings support the need for the requested home health care services because: Deconditioned w/ increased weakness Limited ability to care for self High risk of falls I certify that my clinical findings support that this patient is homebound because: Unsteady gait/balance Santa Rodriguez Dec 08, 2017 10:21
[2017-12-08 12:00] VITALS: BP 114/58; PULSE 72; RESP 19; TEMP 97.8; O2SAT 95
[2017-12-08] MEDS: SODIUM CHLOR 0.9% 1000 ML INJ 1,000 ML IV SCH (13:47)
[2017-12-08 16:00] VITALS: BP 124/56; PULSE 70; RESP 19; TEMP 97.4; O2SAT 99
[2017-12-08 20:00] VITALS: BP 121/53; PULSE 70; RESP 18; TEMP 97; O2SAT 96
[2017-12-08] MEDS: FINASTERIDE 5 MG TAB PO SCH (20:46)
[2017-12-08] MEDS: TAMSULOSIN HCL 0.4 MG CAP PO SCH (20:46)
[2017-12-09] VITALS: BP 131/60; PULSE 78; RESP 18; TEMP 97; O2SAT 94
[2017-12-09] MEDS: SODIUM CHLOR 0.9% 1000 ML INJ 1,000 ML IV SCH ×2 (01:50→12:50)
[2017-12-09 06:53] LABS: BICARBONATE 20.7 MEQ/L (21.0-32.0)
[2017-12-09 06:58] LABS: CREATININE 0.73 MG/DL (0.60-1.30)
[2017-12-09 08:00] VITALS: BP 112/57; PULSE 69; RESP 19; TEMP 97.4; O2SAT 95
[2017-12-09] MEDS: CHOLECALCIFEROL (VIT D3) 1000 UNIT TAB PO SCH (08:22)
[2017-12-09] MEDS: APIXABAN 5 MG TABLET PO SCH (08:23)
[2017-12-09] MEDS: FERROUS SULFATE 325 MG (65 MG ELEMENTAL IRON) TAB PO SCH (08:23)
[2017-12-09] MEDS: MULTIVITAMINS/MINERALS THERAPEUTIC TAB PO SCH (08:24)
[2017-12-09] MEDS: ASCORBIC ACID 500 MG TAB PO SCH (08:24)
[2017-12-09] MEDS: PRAVASTATIN SOD 80 MG TAB PO SCH (08:24)
[2017-12-09] MEDS: METOPROLOL SUCCINATE 50 MG EXTENDED RELEASE TAB PO SCH (08:25)
[2017-12-09] MEDS: SODIUM CHLORIDE 0.9% FLUSH 10 ML FLUSH IV FLUSH SCH (08:25)
[2017-12-09] MEDS: DOCUSATE SODIUM 50 MG/SENNA 8.6 MG TAB PO SCH (08:25)
--- NOTE | 2017-12-09 09:44 | HHI.DS ---
Discharge Summary Admission Date Dec 07, 2017 at 12:55 Discharge Date: Dec 09, 2017 Admitting Diagnosis Dehydration, SHAWN (1) SHAWN (acute kidney injury) ICD Code: N17.9 - Acute kidney failure, unspecified Status: Acute (2) Dehydration ICD Code: E86.0 - Dehydration Procedures None Brief History - From Admission HPI from the admitting physician This is a pleasant 87-year-old male patient with a known medical history of COPD , CHF, CAD status post CABG, atrial fibrillation on Eliquis who presented to the ED with complaints of bilateral lower extremity weakness status post fall at home. Patient was recently admitted on November 29, 2017 with acute kidney injury and dehydration. Patient was discharged home with recommendations for home health care although patient refused home health care efforts. Patient states that he lives home alone in a condo and since hospitalization patient states he has not been eating very much, with low appetite and low p.o. intake. Patient denies any other complaints including fever, chills, cough, headache, shortness of breath, dizziness, lightheadedness, chest pain, shortness of breath , abdominal pain, nausea, vomiting, diarrhea or dysuria. Patient does state that last evening he felt like his legs gave out on him and he fell to the floor. He reports he was on the floor all night last evening. Denies any loss of consciousness or hitting his head. Patient states that his POA is his niece in [place]. CBC/BMP: 12/08/17 0405 12/09/17 0500 Significant Findings Laboratory Tests Test 12/07/17 09:30 12/07/17 12:00 12/08/17 04:05 12/09/17 05:00 White Blood Count 17.2 TH/MM3 (4.0-11.0) 11.1 TH/MM3 (4.0-11.0) Red Blood Count 3.26 MIL/MM3 (4.50-5.90) 3.05 MIL/MM3 (4.50-5.90) Hemoglobin 10.0 GM/DL (13.0-17.0) 9.2 GM/DL (13.0-17.0) Hematocrit 29.8 % (39.0-51.0) 27.8 % (39.0-51.0) Neutrophils (%) (Auto) 89.2 % (16.0-70.0) 81.0 % (16.0-70.0) Lymphocytes (%) (Auto) 4.9 % (9.0-44.0) Neutrophils # (Auto) 15.4 TH/MM3 (1.8-7.7) 9.0 TH/MM3 (1.8-7.7) Lymphocytes # (Auto) 0.8 TH/MM3 (1.0-4.8) Prothrombin Time 15.3 SEC (9.8-11.6) Activated Partial Thromboplast Time 37.1 SEC (24.3-30.1) Blood Urea Nitrogen 21 MG/DL (7-18) Creatinine 1.40 MG/DL (0.60-1.30) Random Glucose 167 MG/DL (74-106) Sodium Level 134 MEQ/L (136-145) Carbon Dioxide Level 19.8 MEQ/L (21.0-32.0) 20.7 MEQ/L (21.0-32.0) Estimat Glomerular Filtration Rate 48 ML/MIN (>89) Total Creatine Kinase 462 U/L (39-308) Creatine Kinase MB 8.5 NG/ML (0.5-3.6) Urine Protein 30 mg/dL (NEG-TRACE) Urine Squamous Epithelial Cells 6-8 /hpf (0-5) Monocytes (%) (Auto) 8.7 % (0.0-8.0) Monocytes # (Auto) 1.0 TH/MM3 (0-0.9) Calcium Level 8.1 MG/DL (8.5-10.1) 8.0 MG/DL (8.5-10.1) Chloride Level 109 MEQ/L (98-107) 111 MEQ/L (98-107) Imaging Last Impressions Knee X-Ray 12/07/17 0000 Signed Impressions: CONCLUSION: No evidence of fracture or hardware complication. Head CT 12/07/17 0000 Signed Impressions: CONCLUSION: 1. Negative CT Head non contrast. PE at Discharge GENERAL: Well-developed, well-nourished elderly male patient in [facility]. SKIN: Warm and dry. Left knee abrasion, covered with dressing, assessed, serosanguineous drainage mild erythema around the edges. Clean/d/i. HEAD: Normocephalic. Atraumatic. EYES: Pupils equal and round. No scleral icterus. No injection or drainage. ENT: No nasal bleeding or discharge. Mucous membranes pink and moist. NECK: Supple. Trachea midline. CARDIOVASCULAR: Irregularly irregular rhythm. No murmur appreciated. RESPIRATORY: No accessory muscle use. Clear to auscultation. Breath sounds equal bilaterally. GASTROINTESTINAL: Abdomen soft, non-tender, nondistended. Normoactive bowel sounds x4. MUSCULOSKELETAL: No obvious deformities. Extremities without clubbing, cyanosis , or edema. NEUROLOGICAL: Awake and alert. No obvious cranial nerve deficits. Motor grossly within normal limits. 5/5 muscle strength in bilateral upper and lower extremities. Normal speech. PSYCHIATRIC: Appropriate mood and affect; insight and judgment normal. Pt update on day of discharge Patient reports he is feeling much better. He ambulated with physical therapy. Hospital Course 87-year-old male admitted secondary to weakness, fever, acute kidney injury with dehydration. Evaluation treatment course detailed below: Acute kidney injury secondary to dehydration. Resolved. Generalized weakness with bilateral lower extremity weakness status post fall at home, improving. Mild Rhabdomyolysis - Was given 500 mL bolus in ED. patient was treated with IV fluid. Lisinopril was held. His renal functions improved. He was followed by physical therapy. He was adamant about going back home and refused SNF placement. History of coronary artery disease status post CABG History of atrial fibrillation on chronic anticoagulation Hypertension, chronic Hyperlipidemia, chronic - Patient reportedly on lisinopril 70 mg daily. The patient's blood pressure is borderline low. Therefore lisinopril and amlodipine held and discontinued on discharge. - Will continue metoprolol daily. - Will continue Eliquis. COPD not in exacerbation: Stable at this time. Will continue home inhalers. Pt Condition on Discharge: Good Discharge Disposition: Disch w/ Home Health Serv Discharge Time: > 30 minutes Discharge Instructions DIET: Follow Instructions for: Heart Healthy Diet Activities you can perform: Regular-No Restrictions Follow up Referrals: PCP Follow-up - 1 Week SNF/[facility]/ with [facility] Continued Medications: Apixaban (Eliquis) 5 Mg Tab 5 MG PO BID for Blood Clot Prevention, #60 TAB 0 Refills Ascorbic Acid (Vitamin C) 1,000 Mg Tablet.er 1 TAB PO DAILY for Nutritional Supplement for 30 Days Budesonide-Formoterol Inh (Symbicort Inh) 80-4.5 Mcg/Act Aero 2 PUFF INH Q12HR PRN for SHORTNESS OF BREATH, #1 INHALER 0 Refills Cholecalciferol (Vitamin D-3) 1,000 Unit Cap 1 CAP PO DAILY for Nutritional Supplement for 30 Days Coenzyme Q10 (Ubidecarenone) (Coq-10) 400 Mg Cap 200 MG PO DAILY Ferrous Sulfate (Ferosul) 325 Mg (65 Mg Iron) Tablet 325 MG PO BID for 30 Days Finasteride (Finasteride) 5 Mg Tab 5 MG PO HS for Manage Prostate Problems, #30 TAB 0 Refills Do not crush. Fish Oil-Cholecalciferol (Fish Oil + D3) 1,200-1,000 Mg-Unit Cap 1 CAP PO DAILY for Nutritional Supplement, #30 CAP 0 Refills Metoprolol Succinate ER 24 HR (Toprol XL) 50 Mg Tab 50 MG PO DAILY, #30 TAB 0 Refills Multiple Vitamins W/ Minerals (Centrum Silver Adult 50+) 1 Tab Tab 1 TAB PO DAILY for Nutritional Supplement for 30 Days Nitroglycerin SL (Nitroglycerin SL) 0.4 Mg Subl 0.4 MG SL DIRECTED PRN for CHEST PAIN, #100 TAB.SL 0 Refills ONE TABLET UNDER THE TONGUE NEEDED FOR CHEST PAIN, MAY REPEAT EVERY FIVE MINUTES FOR A TOTAL OF 3 DOSES OR CALL 911 IF NO RELIEF Omeprazole Magnesium (Prilosec) 20 Mg Tab 0.5 TAB PO PRN for heartburn Pravastatin (Pravastatin) 80 Mg Tab 80 MG PO DAILY for Cholesterol Management, #30 TAB 0 Refills Tamsulosin (Tamsulosin) 0.4 Mg Cap 0.4 MG PO HS for Manage Prostate Problems, #30 CAP 0 Refills Discontinued Medications: Amlodipine (Amlodipine) 10 Mg Tab 10 MG PO HS for Blood Pressure Management, #30 TAB 0 Refills Lisinopril (Lisinopril) 20 Mg Tab 70 MG PO DAILY, #30 TAB 0 Refills Emma Hardy MD Dec 09, 2017 09:44
== END 2017-12-09 15:04 | disposition home or self-care (01) ==
LOC: PHED 08:47 → PHEDA 12:55 → PH3A 14:06
PROVIDERS: ADMIT Family Medicine; ATTEND Family Medicine
DX: E86.0 Dehydration (principal); N17.9 Acute kidney failure, unspecified; J44.9 Chronic obstructive pulmonary disease, unspecified; I50.9 Heart failure, unspecified; I11.0 Hypertensive heart disease with heart failure; I48.91 Unspecified atrial fibrillation; I25.10 Atherosclerotic heart disease of native coronary artery without angina pectoris; Z95.1 Presence of aortocoronary bypass graft; R20.0 Anesthesia of skin; W18.30XA Fall on same level, unspecified, initial encounter; Z79.01 Long term (current) use of anticoagulants; M19.90 Unspecified osteoarthritis, unspecified site; K21.9 Gastro-esophageal reflux disease without esophagitis; Z79.899 Other long term (current) drug therapy; E78.5 Hyperlipidemia, unspecified; S80.212A Abrasion, left knee, initial encounter; M62.82 Rhabdomyolysis; M85.80 Other specified disorders of bone density and structure, unspecified site; R94.31 Abnormal electrocardiogram [ECG] [EKG]; Z95.0 Presence of cardiac pacemaker; Z23 Encounter for immunization
CPT/HCPCS: 70450; 73560; 80048; 81001; 82550; 82552; 85025; 85610; 85730; 90471; 90714; 93005; 96360; 96361; 97110; 97116; 97162; 99285; G0378; G8987; G8988; J7030; J7040; P9612

== ENCOUNTER 2018-06-26 10:03 | Inpatient (IN) ==
[2018-06-26] MEDS ORDERED: Sod Chloride 0.9% Inj 1,000 ML IV.CONT SCH (10:15)
--- NOTE | 2018-06-26 10:21 | ED ---
HPI General Chief complaint: Fall Stated complaint: fall x yesterday Time Seen by Provider: 06/26/18 10:09 Source: patient and EMS Mode of arrival: EMS Limitations: no limitations History of Present Illness HPI narrative: 87-year-old male with history of CAD, CABG, hyperlipidemia, A. fib on Eliquis, lives alone, brought in by ambulance from home for evaluation of generalized weakness and a fall. Patient reports worsening weakness since yesterday. Because of his weakness he fell while in the kitchen yesterday evening. He reports injuring his right hip/thigh as well as his right elbow. He states that he struck his head very lightly and denies loss of consciousness. His skin is notably jaundiced, and he reports first noticing this 2 days ago. He tells me that on 06/18/18 he had a uro-lift procedure performed by urologist Dr. Cunningham for an enlarged prostate, and reports that since his procedure he has had an excessive amount of urine output. He states he feels dehydrated because of this. He denies fevers or chills. No abdominal pain, nausea, vomiting, diarrhea. No chest pain or dyspnea. No cough or recent illness. Denies history of cancer. Related Data Home Medications Medication Instructions Recorded Confirmed apixaban [Eliquis] 5 mg PO BID 06/26/18 06/26/18 metoprolol tartrate mg PO BID 06/26/18 pravastatin 40 mg PO DAILY 06/26/18 06/26/18 Allergies Allergy/AdvReac Type Severity Reaction Status Date / Time hydrochlorothiazide Allergy Unknown Verified 12/07/17 09:19 triamterene Allergy Unknown Verified 12/07/17 09:19 MRI PRECAUTION AdvReac Severe NON Uncoded 12/07/17 09:19 CONDITIONAL PACER KMD 01/10/17 Review of Systems ROS: all other systems reviewed are negative [facility] Medical History Medical History Enlarged prostate (Acute) Surgical History Surgical History H/O cystoscopy (Acute) H/O right knee surgery (Acute) History of quadruple bypass (Acute) Hx of left knee surgery (Acute) Social History Social History Substance History: No History of Abuse Smoking Status: Never smoker How Often Do You Have a Drink Containing Alcohol: 2 to 4 times a month Recent Travel in [facility] within the Last 8 Weeks: No Recent Out of Country Travel within the Last 8 Weeks: No Exam Narrative Exam Narrative: GENERAL: Well-developed, thin, frail, elderly appearing male, awake, alert, no apparent distress, diffusely jaundiced. SKIN: Focused skin assessment warm/dry. Diffusely jaundiced. Ecchymosis to right elbow and right lateral knee. No lacerations. HEAD: Atraumatic. Normocephalic. EYES: Pupils equal and round. Scleral icterus. No injection or drainage. ENT: No nasal bleeding or discharge. Mucous membranes pink and moist. NECK: Trachea midline. No JVD. No midline cervical spine step-off or tenderness. CARDIOVASCULAR: Irregularly irregular. Rate in the 70s. Distal pulses brisk and equal bilaterally. RESPIRATORY: No accessory muscle use. Clear to auscultation. Breath sounds equal bilaterally. GASTROINTESTINAL: Abdomen soft, non-tender, nondistended. MUSCULOSKELETAL: Ecchymosis to right lateral/posterior elbow as well as right anterior/lateral knee. The right elbow is without obvious deformity, with mild tenderness, with normal range of motion. The right knee is with diffuse/ moderate edema, moderate tenderness, normal range of motion. No tenderness at the right hip, and there is normal range of motion. The rest of his joints and extremities are without deformity, without tenderness, with normal range of motion. NEUROLOGICAL: Awake and alert. No obvious cranial nerve deficits. Motor grossly within normal limits. Normal speech. PSYCHIATRIC: Appropriate mood and affect; insight and judgment normal. Course Initial Documented Vital Signs Temperature 97.5 F L 06/26/18 10:10 Pulse Rate 71 06/26/18 10:10 Respiratory Rate 18 06/26/18 10:10 Blood Pressure 109/58 L 06/26/18 10:10 Pulse Oximetry 96 06/26/18 10:10 Last Documented Vital Signs Temperature 97.5 F L 06/26/18 10:10 Pulse Rate 72 06/26/18 12:06 Respiratory Rate 18 06/26/18 12:06 Blood Pressure 131/66 06/26/18 12:06 Pulse Oximetry 96 06/26/18 12:06 Critical Care Time Critical Care Time: Yes Total Critical Care Time: 35 Attestation: Aggregate critical care time was 35 minutes. Time to perform other separately billable procedures was not included in the critical care time. My time did not include minutes spent treating any other patients simultaneously or on activities that did not directly contribute to the patient's treatment. The services I provided to this patient were to treat and/or prevent clinically significant deterioration that could result in: , permanent disability, septic shock, renal failure I provided critical care services requiring my management, as noted below: Chart data review, documentation time, medication orders and management, vital sign assessments/reviewing monitor data, ordering and reviewing lab tests, ordering and interpreting/reviewing x-rays and diagnostic studies, care of the patient and discussion of the patient with the admitting physicians. Medical Decision Making MDM Narrative Medical decision making narrative: Labs, vitals, and imaging studies were reviewed and were reviewed with the patient and the patient's friends who are at the bedside. CBC is remarkable for WBC 19, hemoglobin 11.3, hematocrit 33.3 CMP is remarkable for BUN 60, creatinine 1.9, donovan glucose 170, slightly elevated LFTs, alk phos 373, T bili 16.3. CK-MB is 1400. Troponin is 2.20 INR is 1.6. Patient is on Eliquis. No other anticoagulants. EKG shows electronic ventricular paced rhythm at a rate of 69. CT abdomen pelvis: CONCLUSION: 1. Large mass head of the pancreas incompletely evaluated because of lack of intravenous contrast. This is associated with intrahepatic duct dilatation as well as dilatation of pancreatic duct 2. Large right renal cyst 3. Extensive atherosclerotic vascular calcifications 4. Extensive degenerative changes the lumbar spine. Fracture not appreciated. CT head shows no acute intracranial abnormalities with chronic age-related processes. CT cervical spine: CONCLUSION: 1. Significant degenerative changes in the cervical spine. Spinal stenosis is worse at C5-C6 and C6-C7 2. Given the degree of stenosis controlled flexion-extension films would be of benefit to exclude instability. I discussed the case with the patient's business services clerk Dr. Chavez. We both believe that the patient's elevated troponin and CK-MB are more likely secondary to dehydration. Patient has not had any chest pain over the last 2 days. Because the patient may need endoscopic procedures for this newly diagnosed pancreatic cancer with biliary obstruction, recommendation is to hold Eliquis and to start the patient on subcu heparin 5000 units every [address] Chavez also states that the patient has a slightly decreased EF, and that the patient can be hydrated gently. At this point the patient had already received a liter of normal saline IV, and is currently on normal saline at 125 cc/h. The patient was made aware of all findings and that there is a high suspicion that this is cancer. He does not believe he would like to be aggressive regarding treatment. Case discussed with hospitalist Dr. Uribe who will admit the patient to his service. Medical Screen Exam Complete: Yes Emergency Medical Condition: Yes Differential Diagnosis Differential Diagnosis: Generalized weakness, dehydration, metabolic abnormality , UTI, biliary obstruction, liver cancer, pancreatic cancer, hemolytic anemia, intracranial trauma, musculoskeletal injury Lab Data Result diagrams: 06/26/18 10:30 06/26/18 10:30 Lab Results 06/26/18 06/26/18 06/26/18 Range/Units 10:30 10:30 10:30 CBC w Diff Auto diff final WBC 19.0 H (4.0-11.0) th/mm3 RBC 3.72 L (4.50-5.90) mil/mm3 Hgb 11.3 L (13.0-17.0) gm/dL Hct 33.3 L (39.0-51.0) % MCV 89.6 (80.0-100.0) fL MCH 30.5 (27.0-34.0) pg MCHC 34.0 (32.0-36.0) % RDW 13.9 (11.6-17.2) % Plt Count 264 (150-450) th/mm3 MPV 9.8 (7.0-11.0) fL Neut % (Auto) 87.2 H (16.0-70.0) % Lymph % (Auto) 4.3 L (9.0-44.0) % Carbon % (Auto) 8.3 H (0.0-8.0) % Eos % (Auto) 0.1 (0.0-4.0) % Baso % (Auto) 0.1 (0.0-2.0) % Neut # (Auto) 16.6 H (1.8-7.7) th/mm3 Lymph # (Auto) 0.8 L (1.0-4.8) th/mm3 Carbon # (Auto) 1.6 H (0.0-0.9) th/mm3 Eos # (Auto) 0.0 (0.0-0.4) th/mm3 Baso # (Auto) 0.0 (0.0-0.2) th/mm3 WBC Differential . Differential Comment . PT 16.1 H (9.8-11.6) sec INR 1.6 Ratio APTT 35.7 H (23.4-31.7) sec Sodium 132 L (136-145) meq/L Potassium 4.8 (3.5-5.1) meq/L Chloride 101 (98-107) meq/L Carbon Dioxide 17.2 L (21.0-32.0) meq/L Anion Gap 14 (5-15) meq/L BUN 60 H (7-18) mg/dL Creatinine 1.90 H (0.60-1.30) mg/dL Estimated GFR 34 L (>89) mL/min Random Glucose 170 H (74-106) mg/dL Calcium 8.8 (8.5-10.1) mg/dL Magnesium 2.2 (1.5-2.5) mg/dL Total Bilirubin 16.3 H (0.2-1.0) mg/dL Direct Bilirubin 13.7 H (0.0-0.2) mg/dL AST 119 H (15-37) U/L ALT 105 H (12-78) U/L Alkaline Phosphatase 373 H (45-117) U/L Total Creatine Kinase 1475 H (39-308) U/L CK-MB (CK-2) 17.3 H (0.5-3.6) ng/mL CK-MB (CK-2) % 1.2 (0.0-4.0) % Troponin I 2.20 H* (0.02-0.05) ng/mL Total Protein 7.7 (6.4-8.2) g/dL Albumin 2.7 L (3.4-5.0) g/dL Lipase 34 L (73-393) U/L Blood Type Antibody Screen 06/26/18 Range/Units 10:30 CBC w Diff WBC (4.0-11.0) th/mm3 RBC (4.50-5.90) mil/mm3 Hgb (13.0-17.0) gm/dL Hct (39.0-51.0) % MCV (80.0-100.0) fL MCH (27.0-34.0) pg MCHC (32.0-36.0) % RDW (11.6-17.2) % Plt Count (150-450) th/mm3 MPV (7.0-11.0) fL Neut % (Auto) (16.0-70.0) % Lymph % (Auto) (9.0-44.0) % Carbon % (Auto) (0.0-8.0) % Eos % (Auto) (0.0-4.0) % Baso % (Auto) (0.0-2.0) % Neut # (Auto) (1.8-7.7) th/mm3 Lymph # (Auto) (1.0-4.8) th/mm3 Carbon # (Auto) (0.0-0.9) th/mm3 Eos # (Auto) (0.0-0.4) th/mm3 Baso # (Auto) (0.0-0.2) th/mm3 WBC Differential Differential Comment PT (9.8-11.6) sec INR Ratio APTT (23.4-31.7) sec Sodium (136-145) meq/L Potassium (3.5-5.1) meq/L Chloride (98-107) meq/L Carbon Dioxide (21.0-32.0) meq/L Anion Gap (5-15) meq/L BUN (7-18) mg/dL Creatinine (0.60-1.30) mg/dL Estimated GFR (>89) mL/min Random Glucose (74-106) mg/dL Calcium (8.5-10.1) mg/dL Magnesium (1.5-2.5) mg/dL Total Bilirubin (0.2-1.0) mg/dL Direct Bilirubin (0.0-0.2) mg/dL AST (15-37) U/L ALT (12-78) U/L Alkaline Phosphatase (45-117) U/L Total Creatine Kinase (39-308) U/L CK-MB (CK-2) (0.5-3.6) ng/mL CK-MB (CK-2) % (0.0-4.0) % Troponin I (0.02-0.05) ng/mL Total Protein (6.4-8.2) g/dL Albumin (3.4-5.0) g/dL Lipase (73-393) U/L Blood Type O Positive Antibody Screen Negative Imaging Data Radiologist's impression: Abdomen/Pelvis CT 06/26/18 10:10 CONCLUSION: 1. Large mass head of the pancreas incompletely evaluated because of lack of intravenous contrast. This is associated with intrahepatic duct dilatation as well as dilatation of pancreatic duct 2. Large right renal cyst 3. Extensive atherosclerotic vascular calcifications 4. Extensive degenerative changes the lumbar spine. Fracture not appreciated. Cervical Spine CT 06/26/18 10:10 CONCLUSION: 1. Significant degenerative changes in the cervical spine. Spinal stenosis is worse at C5-C6 and C6-C7 2. Given the degree of stenosis controlled flexion-extension films would be of benefit to exclude instability. Elbow X-Ray 06/26/18 10:10 CONCLUSION: Osteopenia, negative for displaced fracture Femur X-Ray 06/26/18 10:10 CONCLUSION: No evidence of recent bony injury. Head CT 06/26/18 10:10 CONCLUSION: 1. Mild cerebral atrophy. 2. Mild periventricular and subcortical white matter small vessel ischemic changes bilaterally. 3. No acute infarct, acute hemorrhage, midline shift or extra-axial fluid collections. . Pelvis X-Ray 06/26/18 10:10 CONCLUSION: 1. No acute fracture or dislocation. 2. Degenerative changes involving lower lumbar spine and bilateral hips. Discharge Plan Discharge Disposition Patient Disposition: ED Admit(ED Internal Use Only) Discharge Condition Condition: Stable Discharge Details Diagnosis: Pancreatic mass, Hyperbilirubinemia, Biliary obstruction, Acute kidney injury, Rhabdomyolysis, Elevated troponin, General weakness Physicians Team ED Provider: Earle Grady Primary Care Provider: Bernabe Kemp Rxs /Orders / Referrals /Forms Prescriptions: No Action pravastatin 40 mg Tablet 40 mg PO DAILY RF: 0 metoprolol tartrate 25 mg Tablet PO BID RF: 0 apixaban [Eliquis] 5 mg Tablet 5 mg PO BID RF: 0 Status ED Status: With Doctor
[2018-06-26 10:40] LABS: Baso % (Auto) 0.1 % (0.0-2.0); Eos % (Auto) 0.1 % (0.0-4.0); Hematocrit 33.3 % (39.0-51.0); Hemoglobin 11.3 gm/dL (13.0-17.0); Lymph # (Auto) 0.8 th/mm3 (1.0-4.8); Lymph % (Auto) 4.3 % (9.0-44.0); Mean Corpuscular Hemoglobin 30.5 pg (27.0-34.0); Mean Corpuscular Volume 89.6 fL (80.0-100.0); Mean Platelet Volume 9.8 fL (7.0-11.0); Mono # (Auto) 1.6 th/mm3 (0.0-0.9); Mono % (Auto) 8.3 % (0.0-8.0); Neut # (Auto) 16.6 th/mm3 (1.8-7.7); Neut % (Auto) 87.2 % (16.0-70.0); Platelet Count 264 th/mm3 (150-450); Red Blood Count 3.72 mil/mm3 (4.50-5.90); Red Cell Distribution Width 13.9 % (11.6-17.2)
[2018-06-26 11:00] LABS: Activated Partial Thrombo Time 35.7 sec (23.4-31.7); Chloride 101 meq/L (98-107); INR 1.6 Ratio; Potassium 4.8 meq/L (3.5-5.1); Prothrombin Time 16.1 sec (9.8-11.6); Sodium 132 meq/L (136-145)
[2018-06-26 11:04] LABS: Calcium 8.8 mg/dL (8.5-10.1)
[2018-06-26 11:05] LABS: Albumin 2.7 g/dL (3.4-5.0); Anion Gap 14 meq/L (5-15); Blood Urea Nitrogen 60 mg/dL (7-18); Carbon Dioxide 17.2 meq/L (21.0-32.0); Glucose,Random 170 mg/dL (74-106); Lipase 34 U/L (73-393); Magnesium 2.2 mg/dL (1.5-2.5)
[2018-06-26 11:07] LABS: Alanine Aminotransferase 105 U/L (12-78); Aspartate Aminotransferase 119 U/L (15-37)
[2018-06-26 11:08] LABS: Glomerular Filtration Rate 34 mL/min (>89)
[2018-06-26 11:09] LABS: Total Protein 7.7 g/dL (6.4-8.2)
[2018-06-26 11:10] LABS: Alkaline Phosphatase 373 U/L (45-117)
[2018-06-26] MEDS ORDERED: Sod Chloride 0.9% Inj 1,000 ML IV.SIG SCH (11:15)
--- NOTE | 2018-06-26 11:18 | XR ---
EXAM DATE: 06/26/2018 11:11 AM EST AGE/SEX: 87 years / Male INDICATIONS: Right elbow pain, post fall today. CLINICAL DATA: This is the patient's initial encounter. Patient reports that signs and symptoms have been present for 1 day and indicates a pain score of 7/10. MEDICAL/SURGICAL HISTORY: None. None. COMPARISON: No prior exams available for comparison. FINDINGS: Bones are osteopenic. Extensive degenerative changes and vascular calcifications are noted. Displaced fracture is not appreciated. Degree of osteopenia would make detection of subtle nondisplaced fractu res difficult. CONCLUSION: Osteopenia, negative for displaced fracture Electronically signed by: Janes Yo MD Board Certified Radiologist 06/26/2018 11:17 AM EST
[2018-06-26 11:35] LABS: Creatine Kinase 1475 U/L (39-308)
--- NOTE | 2018-06-26 11:40 | CT ---
EXAM DATE: 06/26/2018 11:35 AM EST AGE/SEX: 87 years / Male INDICATIONS: Trauma. Fell yesterday. Hit head. General weakness. CLINICAL DATA: This is the patient's initial encounter. Patient reports that signs and symptoms have been present for 1 day and indicates a pain score of 0/10. MEDICAL/SURGICAL HISTORY: Cardiovascular disease. CABG. RADIATION DOSE: 70.18 CTDI (mGy) COMPARISON: [facility], CT BRAIN W/O CONTRAST, 12/07/2017. . TECHNIQUE: CT of the head without contrast. Using automated exposure control and adjustment of the mA and/or kV according to patient size, radiation dose was kept as low as reasonably achievable to ob tain optimal diagnostic quality images. DICOM format image data is available electronically for revi ew and comparison. FINDINGS: Cerebrum: Mild cerebral atrophy is noted. Mild periventricular and subcortical white matter small ve ssel ischemic changes are noted bilaterally. There is no acute infarct, acute hemorrhage, midline fransico ft or extra- axial fluid collections. Posterior Fossa: The cerebellum and brainstem are intact. The 4th ventricle is midline. The cerebe llopontine angle is unremarkable. Extracranial: The visualized portion of the orbits is intact. Skull: The calvaria is intact. No evidence of skull fracture. CONCLUSION: 1. Mild cerebral atrophy. 2. Mild periventricular and subcortical white matter small vessel ischemic changes bilaterally. 3. No acute infarct, acute hemorrhage, midline shift or extra-axial fluid collections. . Electronically signed by: Genaro Bonilla MD Board Certified Radiologist 06/26/2018 11:38 AM EST
--- NOTE | 2018-06-26 11:45 | CT ---
EXAM DATE: 06/26/2018 11:39 AM EST AGE/SEX: 87 years / Male INDICATIONS: Trauma. Fell yesterday. Hit head. General weakness. CLINICAL DATA: This is the patient's initial encounter. Patient reports that signs and symptoms have been present for 1 day and indicates a pain score of 0/10. MEDICAL/SURGICAL HISTORY: Cardiovascular disease. CABG. RADIATION DOSE: 26.54 CTDI (mGy) COMPARISON: [facility], CTA CAROTID ARTERIES, 05/30/2014. . TECHNIQUE: Contiguous axial images were obtained using helical multirow detector technique. The vol umetric data was post-processed with multiplanar reconstruction in oblique axial, sagittal, and coron al planes. Using automated exposure control and adjustment of the mA and/or kV according to patient s ize, radiation dose was kept as low as reasonably achievable to obtain optimal diagnostic quality andres ges. DICOM format image data is available electronically for review and comparison. FINDINGS: Vertebrae: Normal vertebral body height. Degenerative changes are present throughout the cervical sp ine Alignment: Normal. No subluxation. C1-C2: Moderate degenerative changes are present at C1-C2. There is no foramen magnum stenosis. C2-3: Mild interspace ridging with minimal bilateral neural foraminal encroachment. C3-4: Mild interspace ridging with moderate facet disease worse on the left than the right. Spinal s tenosis is mild. Neural foramina stenosis is moderate. C4-5: Mild uncinate ridging with minimal bilateral neural foraminal encroachment. There is no signif icant spinal stenosis C5-6: Moderate uncinate ridging with bilateral neural foraminal encroachment. Neural foraminal encro achment is worse on the right than the left. Spinal stenosis radiographically significant. C6-7: Moderate uncinate ridging with radiographically significant spinal stenosis and bilateral neur al foraminal encroachment. C7-T1: The bony spinal canal is normal in size. No evidence of disc bulge or herniation. The neura l foramina are bilaterally patent. CONCLUSION: 1. Significant degenerative changes in the cervical spine. Spinal stenosis is worse at C5-C6 and C6- C7 2. Given the degree of stenosis controlled flexion-extension films would be of benefit to exclude in stability. Electronically signed by: Janes Yo MD Board Certified Radiologist 06/26/2018 11:44 AM EST
[2018-06-26 11:49] LABS: CKMB Percent 1.2 % (0.0-4.0); Creatine Kinase MB 17.3 ng/mL (0.5-3.6)
--- NOTE | 2018-06-26 11:49 | CT ---
EXAM DATE: 06/26/2018 11:37 AM EST AGE/SEX: 87 years / Male INDICATIONS: Trauma. Fell yesterday. General weakness. Jaundice x 2 days. CLINICAL DATA: This is the patient's initial encounter. Patient reports that signs and symptoms have been present for 2 days and indicates a pain score of 0/10. MEDICAL/SURGICAL HISTORY: Cardiovascular disease. CABG. RADIATION DOSE: 9.65 CTDI (mGy) COMPARISON: No prior exams available for comparison. TECHNIQUE: Multiple contiguous axial images were obtained through the abdomen. Images were obtained using multiple row detector helical technique. Using automated exposure control and adjustment of the mA and/or kV according to patient size, radiation dose was kept as low as reasonably achievable to o btain optimal diagnostic quality images. DICOM format image data is available electronically for rev iew and comparison. FINDINGS: The heart is enlarged. Moderate lateral calcifications are noted. Trace pleural effusion is seen on t he left. There is no pneumothorax. Liver is small with significant intrahepatic biliary duct dilatati on with common bile duct dilated into enlarged head of the pancreas. The proximal pancreatic duct is dilated. Mass in the head of pancreas is suspected. The gallbladder is prominent Spleen is unremarkable 8.5 cm right renal cyst. 5 mm hyperdense left renal cyst. Extensive atherosclerotic vascular calcifications There is no ascites. There is no adenopathy. Extensive vascular calcic ages are noted. Pelvic contents are grossly unremarkable Review of bone windows reveals scoliosis with extensive degenerative changes in the lumbar spine. Fra cture not appreciated. CONCLUSION: 1. Large mass head of the pancreas incompletely evaluated because of lack of intravenous contrast. T his is associated with intrahepatic duct dilatation as well as dilatation of pancreatic duct 2. Large right renal cyst 3. Extensive atherosclerotic vascular calcifications 4. Extensive degenerative changes the lumbar spine. Fracture not appreciated. Electronically signed by: Janes Yo MD Board Certified Radiologist 06/26/2018 11:48 AM EST
--- NOTE | 2018-06-26 11:51 | XR ---
EXAM DATE: 06/26/2018 11:08 AM EST AGE/SEX: 87 years / Male INDICATIONS: Right upper leg pain, post fall today. CLINICAL DATA: This is the patient's initial encounter. Patient reports that signs and symptoms have been present for 1 day and indicates a pain score of 7/10. MEDICAL/SURGICAL HISTORY: Carcinoma, prostatic. . Bilateral knee replacements. COMPARISON: [facility], PELVIS AP 1V, 06/26/2018. . FINDINGS: Bony structures are intact and in normal alignment. Osseous density is normal. Soft tissues are unre markable. No radiopaque foreign bodies seen. CONCLUSION: No evidence of recent bony injury. Electronically signed by: Genaro Bonilla MD Board Certified Radiologist 06/26/2018 11:50 AM EST
--- NOTE | 2018-06-26 11:53 | XR ---
EXAM DATE: 06/26/2018 11:05 AM EST AGE/SEX: 87 years / Male INDICATIONS: Pelvic pain, post fall. CLINICAL DATA: This is the patient's initial encounter. Patient reports that signs and symptoms have been present for 1 day and indicates a pain score of 7/10. MEDICAL/SURGICAL HISTORY: Carcinoma, prostatic. Pacemaker. COMPARISON: [facility], FEMUR RIGHT 2V, 06/26/2018. . FINDINGS: No acute fracture or dislocation is noted. Degenerative changes are noted involving the lower lumbar spine. Mild degenerative changes are noted involving the hip joints bilaterally. CONCLUSION: 1. No acute fracture or dislocation. 2. Degenerative changes involving lower lumbar spine and bilateral hips. Electronically signed by: Genaro Bonilla MD Board Certified Radiologist 06/26/2018 11:51 AM EST
[2018-06-26 12:29] LABS: Clarity,Urine Slight (Clear); Color,Urine Amber (Yellw/Straw); Glucose,Urine (UA) Negative (Negative); Nitrite,Urine Negative (Negative)
[2018-06-26 12:30] LABS: Bilirubin,Urine Moderate (Negative); Ictotest,Urine Positive (Negative); Leukocyte Esterase,Urine Negative (Negative); Urobilinogen,Urine 0.2 mg/dL (Less than 2)
[2018-06-26 12:32] LABS: Hyaline Casts,Urine 0-3 /lpf (0-3); Squamous Epithelial Cell,Urine 0-5 /hpf (0-5); WBC,Urine 0-5 /hpf (0-5)
[2018-06-26 12:33] LABS: Amorphous Sediment,Urine Few /hpf
--- NOTE | 2018-06-26 13:50 | P.HPIM ---
History of Present Illness Primary Care Physician: Bernabe Kemp MD History of Present Illness: 87-year-old male with history of CAD, CABG, hyperlipidemia, A. fib on Eliquis, who presented to the ER after fall. Patient lives alone. Reports having a uro-lift procedure 10 days ago, after which he has been urinating a lot and frequently. A couple of days after the procedure he stopped drinking fluids so as not to keep going to the bathroom. He started feeling weak and dehydrated. Last evening while in the kitchen, he felt his knees giving way, and he fell.He did not lose consciousness. He did not have any palpitations,dizziness or lightheadedness prior to falling. No chest pain or shortness of breath. He denies fevers or chills. No abdominal pain, nausea, vomiting, diarrhea. Patient was unable to get up after he fell hence stayed down overnight on the floor. His friends came to check on him this morning and found him on the floor hence called EMS and patient was brought to the ER. ROS-belly has been swelling for the last 2 months, he started turning yellow 2 weeks ago and this has progressively gotten worse. He has no abdominal pain. On presentation to ER, patient noted to be jaundiced labs revealed Cr 1.9, CK > 1400, wbc 19. CT abdo/pelvis revealed mass at head of pancrease with intrahepatic and pancreatic duct dilatation. CT head/C spine and Xrays pelvis/ femur/elbow were negative. Patient given IV fluids. Inpatient Certification Inpatient Certification: I certify that the inpatient services were ordered in accordance with Medicare regulations governing the order. This includes certification that hospital inpatient services are reasonable and necessary and in the case of services not specified as inpatient-only under 42 CFR 419.22(n), that they are appropriately provided as inpatient services in accordance to with the 2-midnight benchmark under 43 CFR 412.3(e) Review of Systems Review of Systems: all other systems reviewed are negative [facility] Medical History Medical History Enlarged prostate (Acute) Surgical History Surgical History H/O cystoscopy (Acute) H/O right knee surgery (Acute) History of quadruple bypass (Acute) Hx of left knee surgery (Acute) Social History Social History Substance History: No History of Abuse Second Hand Smoke Exposure: No Smoking Status: Former smoker Tobacco Type: Cigarettes How Often Do You Have a Drink Containing Alcohol: 2 to 4 times a month Recent Travel in [facility] within the Last 8 Weeks: No Recent Out of Country Travel within the Last 8 Weeks: No Immunization History Tetanus Immunization: Unsure Medications and Allergies Allergies Allergy/AdvReac Type Severity Reaction Status Date / Time hydrochlorothiazide Allergy Unknown Verified 12/07/17 09:19 triamterene Allergy Unknown Verified 12/07/17 09:19 MRI PRECAUTION AdvReac Severe NON Uncoded 12/07/17 09:19 CONDITIONAL PACER KMD 01/10/17 Home Medications Medication Instructions Recorded Confirmed Type apixaban [Eliquis] 5 mg PO BID 06/26/18 06/26/18 History metoprolol tartrate mg PO BID 06/26/18 History pravastatin 40 mg PO DAILY 06/26/18 06/26/18 History Active Medications: Active Medications Sodium Chloride (Ns Inj) 1,000 mls @ 125 mls/hr IV.CONT .Q8H BERTHA Stop: 06/26/18 18:14 Last Infusion: 06/26/18 12:08 Dose: Infused Sodium Chloride (Ns Flush) 2 ml IV.FLUSH PRN PRN PRN Reason: FLUSH AFTER USING IV ACCESS Physical Exam Vital signs: Last Vital Signs Temp 97.5 F L 06/26/18 10:10 Pulse 72 06/26/18 12:06 Resp 18 06/26/18 12:06 BP 131/66 06/26/18 12:06 Pulse Ox 96 06/26/18 12:06 Intake & Output 06/24/18 06/25/18 06/26/18 06/27/18 06:59 06:59 06:59 06:59 Intake Total 1999 / 1999 Output Total 250 / 250 Balance 1750 / 1750 Weight 79.379 kg Narrative: GENERAL: elderly man, not in distress, jaundiced. HEENT:not pale, significant jaundice noted. CARDIOVASCULAR: Regular rate and rhythm without murmurs, gallops, or rubs. RESPIRATORY: Clear to auscultation. Breath sounds equal bilaterally. No wheezes , rales, or rhonchi. GASTROINTESTINAL: Abdomen soft, non-tender, nondistended. Normal active bowel sounds MUSCULOSKELETAL: Extremities without clubbing, cyanosis, or edema. NEURO: Alert & Oriented x4 to person, place, time, situation. Moves all ext x4 Results Labs CBC & Chem 7: 06/27/18 09:10 06/27/18 09:10 Imaging Impressions Abdomen/Pelvis CT 06/26/18 10:10 CONCLUSION: 1. Large mass head of the pancreas incompletely evaluated because of lack of intravenous contrast. This is associated with intrahepatic duct dilatation as well as dilatation of pancreatic duct 2. Large right renal cyst 3. Extensive atherosclerotic vascular calcifications 4. Extensive degenerative changes the lumbar spine. Fracture not appreciated. Cervical Spine CT 06/26/18 10:10 CONCLUSION: 1. Significant degenerative changes in the cervical spine. Spinal stenosis is worse at C5-C6 and C6-C7 2. Given the degree of stenosis controlled flexion-extension films would be of benefit to exclude instability. Elbow X-Ray 06/26/18 10:10 CONCLUSION: Osteopenia, negative for displaced fracture Femur X-Ray 06/26/18 10:10 CONCLUSION: No evidence of recent bony injury. Head CT 06/26/18 10:10 CONCLUSION: 1. Mild cerebral atrophy. 2. Mild periventricular and subcortical white matter small vessel ischemic changes bilaterally. 3. No acute infarct, acute hemorrhage, midline shift or extra-axial fluid collections. . Pelvis X-Ray 06/26/18 10:10 CONCLUSION: 1. No acute fracture or dislocation. 2. Degenerative changes involving lower lumbar spine and bilateral hips. Caprini VTE Risk Assessment Caprini VTE Risk Assessment: Moderate/High Risk (score >= 2) Caprini Risk Assessment Model: Point Value = 1 Point Value = 2 Point Value = 3 Point Value = 5 Age 41-60 Minor surgery BMI > 25 kg/m2 Swollen legs Varicose veins or History of unexplained or recurrent spontaneous Oral contraceptives or hormone replacement Sepsis (< 1 month) Serious lung disease, including pneumonia (< 1 month) Abnormal pulmonary function Acute myocardial infarction Congestive heart failure (< 1 month) History of inflammatory bowel disease Medical patient at bed rest Age 61-74 Arthroscopic surgery Major open surgery (> 45 min) Laparoscopic surgery (> 45 min) Malignancy Confined to bed (> 72 hours) Immobilizing plaster cast Central venous access Age >= 75 History of VTE Family history of VTE Factor V Leiden Prothrombin [id number] Lupus anticoagulant Anticardiolipin antibodies Elevated serum homocysteine Heparin-induced thrombocytopenia Other congenital or acquired thrombophilia Stroke (< 1 month) Elective arthroplasty Hip, pelvis, or leg fracture Acute spinal cord injury (< 1 month) Prophylaxis Regimen: Total Risk Factor Score Risk Level Prophylaxis Regimen 0-1 Low Early ambulation 2 Moderate Order ONE of the following: *Sequential Compression Device (SCD) *Heparin 5000 units SQ BID 3-4 Higher Order ONE of the following medications: *Heparin 5000 units SQ TID *Enoxaparin/Lovenox 40 mg SQ daily (WT < 150 kg, CrCl > 30 mL/min) *Enoxaparin/Lovenox 30 mg SQ daily (WT < 150 kg, CrCl > 10-29 mL/min) *Enoxaparin/Lovenox 30 mg SQ BID (WT < 150 kg, CrCl > 30 mL/min) AND/OR *Sequential Compression Device (SCD) 5 or more Highest Order ONE of the following medications: *Heparin 5000 units SQ TID (Preferred with Epidurals) *Enoxaparin/Lovenox 40 mg SQ daily (WT < 150 kg, CrCl > 30 mL/min) *Enoxaparin/Lovenox 30 mg SQ daily (WT < 150 kg, CrCl > 10-29 mL/min) *Enoxaparin/Lovenox 30 mg SQ BID (WT < 150 kg, CrCl > 30 mL/min) AND *Sequential Compression Device (SCD) Assessment and Plan Plan 87-year-old male with history of CAD, CABG, hyperlipidemia, A. fib who presented to ER after fall, found to have SHAWN,Rhabdomyolysis,pancreatic mass. Fall- likely in the setting of volume depletion. fall precautions. PT/OT eval Acute kidney injury, Rhabdomyolysis- due to poor PO intake. keep on IV fluids, monitor BMP and CK levels daily. Troponin elevation likely in the setting of Rhabdo Hold Pravastatin. Pancreatic mass with obstructive jaundice likely pancreatic cancer. patient says he does not want any further work up or procedures at this time. He says he has lived a good life,he is 87 yr, and if his time has come he is ok with it. He is not in pain at present. I discussed him about palliative care/hospice and he is willing to have them consulted. CODE-DNR, discussed with patient.
[2018-06-26] MEDS ORDERED: Bisacodyl 10 MG Supp RECTAL PRN (14:27)
[2018-06-26] MEDS: Sod Chloride 0.9% Inj 1,000 ML IV.CONT SCH (16:05)
[2018-06-26] MEDS ORDERED: Ibuprofen 400 MG Tablet PO ONE (21:00)
[2018-06-26] MEDS: Senna/Docusate Sodium 8.6/50 MG Tablet PO SCH (21:46)
[2018-06-27] MEDS: Sod Chloride 0.9% Inj 1,000 ML IV.CONT SCH ×3 (06:19→22:07)
[2018-06-27] MEDS: Senna/Docusate Sodium 8.6/50 MG Tablet PO SCH ×2 (08:49→20:07)
[2018-06-27 09:40] LABS: Baso # (Auto) 0.1 th/mm3 (0.0-0.2); Baso % (Auto) 0.3 % (0.0-2.0); Eos % (Auto) 0.1 % (0.0-4.0); Hemoglobin 9.8 gm/dL (13.0-17.0); Lymph # (Auto) 2.7 th/mm3 (1.0-4.8); Lymph % (Auto) 14.7 % (9.0-44.0); Mean Corpuscular HGB Conc 33.9 % (32.0-36.0); Mean Corpuscular Hemoglobin 30.8 pg (27.0-34.0); Mean Corpuscular Volume 90.7 fL (80.0-100.0); Mean Platelet Volume 10.5 fL (7.0-11.0); Mono % (Auto) 5.7 % (0.0-8.0); Neut # (Auto) 14.3 th/mm3 (1.8-7.7); Neut % (Auto) 79.2 % (16.0-70.0); Platelet Count 252 th/mm3 (150-450); Red Cell Distribution Width 14.6 % (11.6-17.2); White Blood Count 18.1 th/mm3 (4.0-11.0)
[2018-06-27 10:01] LABS: Platelet Estimate Normal (Normal); Platelet Morphology Normal (Normal); RBC Morphology Normal (Normal)
[2018-06-27 10:29] LABS: Alanine Aminotransferase 91 U/L (12-78); Albumin 2.3 g/dL (3.4-5.0); Alkaline Phosphatase 287 U/L (45-117); Anion Gap 11 meq/L (5-15); Aspartate Aminotransferase 127 U/L (15-37); Blood Urea Nitrogen 55 mg/dL (7-18); Carbon Dioxide 17.6 meq/L (21.0-32.0); Chloride 109 meq/L (98-107); Glomerular Filtration Rate 44 mL/min (>89); Glucose,Random 157 mg/dL (74-106); Potassium 4.1 meq/L (3.5-5.1); Sodium 138 meq/L (136-145); Total Protein 6.2 g/dL (6.4-8.2)
[2018-06-27 11:58] LABS: CKMB Percent 1.1 % (0.0-4.0); Creatine Kinase MB 13.2 ng/mL (0.5-3.6)
--- NOTE | 2018-06-27 12:18 | P.PNIM ---
Subjective Interval history: patient reports feeling better than he did yesterday. he is trying to eat and drink. not in pain. Physical Exam Vital signs: Last Vital Signs Temp 98.2 F 06/27/18 08:00 Pulse 61 06/27/18 08:00 Resp 21 06/27/18 08:00 BP 111/56 L 06/27/18 08:00 Pulse Ox 96 06/27/18 08:00 Intake & Output 06/25/18 06/26/18 06/27/18 06/28/18 06:59 06:59 06:59 06:59 Intake Total 3820 / 3820 240 / 240 Output Total 750 / 750 300 / 300 Balance 3070 / 3070 -60 / -60 Weight 70.3 kg Narrative: GENERAL: elderly man, not in distress, jaundiced. HEENT:not pale, significant jaundice noted. CARDIOVASCULAR: Regular rate and rhythm without murmurs, gallops, or rubs. RESPIRATORY: Clear to auscultation. Breath sounds equal bilaterally. No wheezes , rales, or rhonchi. GASTROINTESTINAL: Abdomen soft, non-tender, nondistended. Normal active bowel sounds MUSCULOSKELETAL: Extremities without clubbing, cyanosis, or edema. NEURO: Alert & Oriented x4 to person, place, time, situation. Moves all ext x4 Results Labs CBC & Chem 7: 06/27/18 09:10 06/27/18 09:10 Assessment and Plan Plan 87-year-old male with history of CAD, CABG, hyperlipidemia, A. fib who presented to ER after fall, found to have SHAWN,Rhabdomyolysis,pancreatic mass. 1.Fall- likely in the setting of volume depletion. fall precautions. PT/OT eval 2.Acute kidney injury, Rhabdomyolysis- due to poor PO intake. keep on IV fluids. Cr trending down from 1.9-->1.5 today, Ck 1475-->1239. monitor BMP and CK levels daily. Troponin elevation likely in the setting of Rhabdo Hold Pravastatin. 3.Pancreatic mass with obstructive jaundice likely pancreatic cancer. patient says he does not want any further work up or procedures at this time. He says he has lived a good life,he is 87 yr, and if his time has come he is ok with it. He is not in pain at present. hospice consult pending. 4.Leucocytosis--likely reactive in in the setting of tumor and dehydration. patient has no features to suggest infection/sepsis at present. lactic acid level is normal. 5. Hyperglycemia--pre diabetic range. CODE-DNR, discussed with patient. DVT ppx. Progress Note: Quality VTE Deep Vein Thrombosis/Pulmonary Embolism Present on Admission: No
[2018-06-27] MEDS: Enoxaparin Inj 40 MG/0.4 ML Syringe SQ SCH (14:28)
--- NOTE | 2018-06-28 00:47 | ECG ---
Date Performed: 06/26/2018 Time Performed: 11:44:19 PTAGE: 87 years EKG: ELECTRONIC VENTRICULAR PACEMAKER ABNORMAL RHYTHM ECG PREVIOUS TRACING : 12/07/2017 09.28 Since the previous tracing, no significant change noted DOCTOR: To Diehl Interpretating Date/Time 06/28/2018 00:45:57
[2018-06-28 07:55] LABS: Chloride 111 meq/L (98-107); Potassium 3.9 meq/L (3.5-5.1); Sodium 139 meq/L (136-145)
[2018-06-28 08:01] LABS: Anion Gap 11 meq/L (5-15); Calcium 7.5 mg/dL (8.5-10.1); Carbon Dioxide 17.3 meq/L (21.0-32.0)
[2018-06-28 08:02] LABS: Baso # (Auto) 0.3 th/mm3 (0.0-0.2); Baso % (Auto) 1.7 % (0.0-2.0); Blood Urea Nitrogen 46 mg/dL (7-18); Eos % (Auto) 0.2 % (0.0-4.0); Glucose,Random 95 mg/dL (74-106); Hematocrit 26.5 % (39.0-51.0); Lymph # (Auto) 3.1 th/mm3 (1.0-4.8); Lymph % (Auto) 20.4 % (9.0-44.0); Mean Corpuscular HGB Conc 34.1 % (32.0-36.0); Mean Corpuscular Hemoglobin 30.8 pg (27.0-34.0); Mean Corpuscular Volume 90.3 fL (80.0-100.0); Mean Platelet Volume 10.7 fL (7.0-11.0); Mono # (Auto) 0.1 th/mm3 (0.0-0.9); Mono % (Auto) 0.7 % (0.0-8.0); Neut # (Auto) 11.5 th/mm3 (1.8-7.7); Platelet Count 223 th/mm3 (150-450); Red Blood Count 2.93 mil/mm3 (4.50-5.90); Red Cell Distribution Width 14.3 % (11.6-17.2)
[2018-06-28 08:04] LABS: Alanine Aminotransferase 89 U/L (12-78)
[2018-06-28 08:05] LABS: Aspartate Aminotransferase 123 U/L (15-37); Glomerular Filtration Rate 63 mL/min (>89)
[2018-06-28 08:06] LABS: Total Protein 5.5 g/dL (6.4-8.2)
[2018-06-28 08:07] LABS: Alkaline Phosphatase 258 U/L (45-117)
--- NOTE | 2018-06-28 09:13 | P.DIET ---
Nutritional Evaluation Type of nutrition evaluation: initial Nutrition screening: Weight Loss > 10 lbs Screening comments: 06/26 Wt loss screen Subjective Subjective Comments: Pt reports a good appetite but also reports recent unintentional weight loss Objective - Diagnosis Pancreatic Mass - Objective % IBW: 97 Body Weight Used for Calculations: Actual (70.3) Energy Needs - Lower Range (kCal/kg): 25 Energy Needs - Upper Range (kCal/kg): 30 Lower Limit kCal/kg (kCals): 1,758 Upper Limit kCal/kg (kCals): 2,109 Lower Limit Protein Factor (Grams per Kg): 1.1 Upper Limit Protein Factor (Grams per Kg): 1.3 Lower Protein Needs (Protein): 77 Upper Protein Needs (Protein): 91 Fluid Factor (ml/kg): 25 Estimated Fluid Needs (ml): 1,758 Dietitian Reviewed in Medical Record: Current diet, Curent medications, Intake & Output, Labs, Medical history Diet Order: Cardiac Oral Diet Intake Amount: Good 75-90% Assessment Assessment: Pt admitted for a pancreatic mass with obstructive jaundice, rhabdomyolysis. Upon admission, pt reported a good appetite but also weight loss. His nutritional needs are as assessed above. He is currently eating 100% of his meals, PO intake appears adequate. Noted pt with probable pancreatic cancer. Palliative care is consulted, pt requests DNR status. Please consult dietitian if needed. Recommendations: PO intake 75-100% Please consult dietitian if needed.
[2018-06-28 09:30] LABS: Platelet Estimate Normal (Normal); Platelet Morphology Normal (Normal); Target Cells 1+
[2018-06-28] MEDS: Enoxaparin Inj 40 MG/0.4 ML Syringe SQ SCH (10:01)
[2018-06-28] MEDS: Sod Chloride 0.9% Inj 1,000 ML IV.CONT SCH (10:02)
[2018-06-28] MEDS: Senna/Docusate Sodium 8.6/50 MG Tablet PO SCH ×2 (10:02→21:07)
--- NOTE | 2018-06-28 10:33 | P.PNIM ---
Subjective Interval history: has not been sleeping well at night,feels no energy. has some indigestion, asks for omeprazole which works well for him. He has been drinking a lot of fluids. Physical Exam Vital signs: Last Vital Signs Temp 97.2 F L 06/28/18 07:24 Pulse 69 06/28/18 07:24 Resp 17 06/28/18 07:24 BP 123/60 06/28/18 07:24 Pulse Ox 98 06/28/18 07:24 Intake & Output 06/26/18 06/27/18 06/28/18 06/29/18 06:59 06:59 06:59 06:59 Intake Total 3820 / 3820 3200 / 3200 1000 / 1000 Output Total 750 / 750 1301 / 1301 Balance 3070 / 3070 1899 / 1899 1000 / 1000 Weight 70.3 kg Narrative: GENERAL: elderly man, not in distress, jaundiced. HEENT:not pale, significant jaundice noted. CARDIOVASCULAR: Regular rate and rhythm without murmurs, gallops, or rubs. RESPIRATORY: Clear to auscultation. Breath sounds equal bilaterally. No wheezes , rales, or rhonchi. GASTROINTESTINAL: Abdomen soft, non-tender, nondistended. Normal active bowel sounds MUSCULOSKELETAL: Extremities without clubbing, cyanosis, or edema. NEURO: Alert & Oriented x4 to person, place, time, situation. Moves all ext x4 Results Labs CBC & Chem 7: 06/28/18 07:15 06/28/18 07:15 Assessment and Plan Plan 87-year-old male with history of CAD, CABG, hyperlipidemia, A. fib who presented to ER after fall, found to have SHAWN,Rhabdomyolysis,pancreatic mass. 1.Fall- likely in the setting of volume depletion. fall precautions. PT/OT eval. 2.Acute kidney injury, Rhabdomyolysis- due to poor PO intake.clinically improved. discontinue IV fluids, encourage PO intake. Cr trending down from 1.9-->1.5 today, Ck 1475-->1239. monitor BMP and CK levels daily. Troponin elevation likely in the setting of Rhabdo Hold Pravastatin. 3.Pancreatic mass with obstructive jaundice likely pancreatic cancer. patient says he does not want any further work up or procedures at this time. He says he has lived a good life,he is 87 yr, and if his time has come he is ok with it. He is not in pain at present. hospice consult pending. 4.Leucocytosis--likely reactive in in the setting of tumor and dehydration. patient has no features to suggest infection/sepsis at present. lactic acid level is normal. 5. Hyperglycemia--pre diabetic range. start Protonix for indigestion. start Melatonin for Insomnia. CODE-DNR, discussed with patient. DVT ppx. Disposition:patient is interested in hospice care, consult pending. Progress Note: Quality VTE Deep Vein Thrombosis/Pulmonary Embolism Present on Admission: No
[2018-06-28 11:20] LABS: CKMB Percent 1.3 % (0.0-4.0); Creatine Kinase MB 7.5 ng/mL (0.5-3.6)
[2018-06-28] MEDS: Melatonin 5 MG Tablet PO PRN (21:08)
[2018-06-29] MEDS: Enoxaparin Inj 40 MG/0.4 ML Syringe SQ SCH (10:13)
[2018-06-29] MEDS: Senna/Docusate Sodium 8.6/50 MG Tablet PO SCH ×2 (10:13→21:35)
--- NOTE | 2018-06-29 11:16 | P.PNIM ---
Subjective Interval history: No overnight events, patient still has generalized weakness, no nausea or vomiting. Not in pain. However too weak to go home. Does not want to go to rehab. Physical Exam Vital signs: Last Vital Signs Temp 97.8 F 06/29/18 08:00 Pulse 72 06/29/18 08:00 Resp 20 06/29/18 08:00 BP 113/51 L 06/29/18 08:00 Pulse Ox 95 06/29/18 08:00 Intake & Output 06/27/18 06/28/18 06/29/18 06/30/18 06:59 06:59 06:59 06:59 Intake Total 3820 / 3820 3440 / 3440 1530 / 1530 Output Total 750 / 750 1301 / 1301 1650 / 1650 Balance 3070 / 3070 2139 / 2139 -120 / -120 Weight 70.3 kg 97.9 kg Narrative: GENERAL: elderly man, not in distress, jaundiced. HEENT:not pale, significant jaundice noted., Icteric sclera. CARDIOVASCULAR: Regular rate and rhythm without murmurs, gallops, or rubs. RESPIRATORY: Clear to auscultation. Breath sounds equal bilaterally. No wheezes , rales, or rhonchi. GASTROINTESTINAL: Abdomen soft, non-tender, nondistended. Normal active bowel sounds MUSCULOSKELETAL: Extremities without clubbing, cyanosis, or edema. NEURO: Alert & Oriented x4 to person, place, time, situation. Moves all ext x4 Results Labs CBC & Chem 7: 06/28/18 07:15 06/28/18 07:15 Assessment and Plan Plan 87-year-old male with history of CAD, CABG, hyperlipidemia, A. fib who presented to ER after fall, found to have SHAWN,Rhabdomyolysis,pancreatic mass. Fall- likely in the setting of volume depletion. fall precautions. PT/OT eval. head CT, pelvis x-ray, femoral x-ray, elbow x-ray, cervical spine CT scan unremarkable for fracture. Acute kidney injury, Rhabdomyolysis- due to poor PO intake.clinically improved. discontinue IV fluids, encourage PO intake. Creatinine now back to normal. Troponin elevation likely in the setting of Rhabdo, pravastatin on hold. Pancreatic mass with obstructive jaundice- likely pancreatic cancer. Patient says he does not want any further work up or procedures at this time. He says he has lived a good life,he is 87 yr, and if his time has come he is ok with it. He is not in pain at present. Hospice saw the patient and will take the patient on discharge. Leukocytosis--likely reactive in in the setting of tumor and dehydration. patient has no features to suggest infection/sepsis at present. lactic acid level is normal. Hyperglycemia--pre diabetic range. Controlled CODE-DNR, discussed with patient. DVT ppxL Lovenox Disposition:patient is interested in hospice care, patient will be discharged home with home health care physical therapy or hospice after a few days of therapy here. She refuses to go to rehab. Progress Note: Quality VTE Deep Vein Thrombosis/Pulmonary Embolism Present on Admission: No
--- NOTE | 2018-06-29 14:25 | P.DCO ---
Diagnosis (1) Pancreatic mass: Status: Acute (2) Hyperbilirubinemia: Status: Acute (3) Acute kidney injury: Status: Acute Physical Therapy Order: Evaluate and treat Home Health Nursing Order: Signs/symptoms of disease process and Nursing assessment with vital signs Case Management Consult Case Management Consult-Home Health: Yes I have seen patient Kael Trevizo on 06/29/18. My clinical findings support the need for the requested home health care services because: Deconditioned with increased weakness, Limited ability to care for self and High risk of falls I certify that my clinical findings support that this patient is homebound because: Unsteady gait/balance and Unsafe to leave home unassisted
[2018-06-29] MEDS: Melatonin 5 MG Tablet PO PRN (21:36)
[2018-06-30] MEDS ORDERED: Lisinopril 10 MG Tablet PO SCH (09:00)
[2018-06-30] MEDS ORDERED: amLODIPine 10 MG Tablet PO SCH (09:00)
[2018-06-30] MEDS: Enoxaparin Inj 40 MG/0.4 ML Syringe SQ SCH (09:59)
[2018-06-30] MEDS: Senna/Docusate Sodium 8.6/50 MG Tablet PO SCH (09:59)
--- NOTE | 2018-06-30 10:20 | P.DS ---
DS: Providers Date of admission: 06/26/18 12:33 Primary care physician: Bernabe Kepm MD Brief History from admission: 87-year-old male with history of CAD, CABG, hyperlipidemia, [facility]. [facility], who presented to the ER after fall. Patient lives alone. Reports having a uro-lift procedure 10 days ago, after which he has been urinating a lot and frequently. A couple of days after the procedure he stopped drinking fluids so as not to keep going to the bathroom. He started feeling weak and dehydrated. Last evening while in the kitchen, he felt his knees giving way, and he fell.He did not lose consciousness. He did not have any palpitations,dizziness or lightheadedness prior to falling. No chest pain or shortness of breath. He denies fevers or chills. No abdominal pain, nausea, vomiting, diarrhea. Patient was unable to get up after he fell hence stayed down overnight on the floor. His friends came to check on him this morning and found him on the floor hence called EMS and patient was brought to the ER. ROS-belly has been swelling for the last 2 months, he started turning yellow 2 weeks ago and this has progressively gotten worse. He has no abdominal pain. On presentation to ER, patient noted to be jaundiced labs revealed Cr 1.9, CK > 1400, wbc 19. CT abdo/pelvis revealed mass at head of pancrease with intrahepatic and pancreatic duct dilatation. CT head/C spine and Xrays pelvis/ femur/elbow were negative. Patient given IV fluids. DS: Diagnosis Discharge Diagnosis (1) Pancreatic mass: Status: Acute (2) Hyperbilirubinemia: Status: Acute (3) Acute kidney injury: Status: Acute DS: Summary This is an 87-year-old male with history of CAD, CABG, hyperlipidemia, A. fib who presented to ER after fall, found to have SHAWN,Rhabdomyolysis,pancreatic mass. For likely happen in the setting of volume depletion, head CT, pelvic x- ray, femoral x-ray, elbow x-ray and cervical spine CT scan were all unremarkable for fracture. Patient was seen with physical therapy, he will be discharged with home health care. Patient was also found to have acute kidney injury secondary to rhabdomyolysis, this improved and resolved with volume resuscitation. He was found to have pancreatic mass with obstructive jaundice, this was thought to be secondary to pancreatic cancer but patient does not want any further workup or procedure. He said he lived a good life and would like to peacefully. He would need to be transitioned to hospice as outpatient after follow-up with his primary care physician. Patient will be discharged home with home health care. Patient is DNR, he refused hospice at this time but would like to go home to do physical therapy at home. Will be discharged on all his home medications except Aldactone which could have caused his hypovolemia. Time Spent with Patient Total time spent providing and/or coordinating discharge services: Greater than 30 minutes Status at Discharge Functional status at discharge: independent ambulation Quality: VTE Deep Vein Thrombosis/Pulmonary Embolism Present on Admission: No Exam Narrative Exam Narrative: S> no overnight events, step-off, no abdominal pain, no nausea or vomiting. O> GENERAL: elderly man, not in distress, jaundiced. HEENT:not pale, significant jaundice noted., Icteric sclera. CARDIOVASCULAR: Regular rate and rhythm without murmurs, gallops, or rubs. RESPIRATORY: Clear to auscultation. Breath sounds equal bilaterally. No wheezes , rales, or rhonchi. GASTROINTESTINAL: Abdomen soft, non-tender, nondistended. Normal active bowel sounds MUSCULOSKELETAL: Extremities without clubbing, cyanosis, or edema. NEURO: Alert & Oriented x4 to person, place, time, situation. Moves all ext x4 Results Impressions ITS Impressions Abdomen/Pelvis CT 06/26/18 10:10 CONCLUSION: 1. Large mass head of the pancreas incompletely evaluated because of lack of intravenous contrast. This is associated with intrahepatic duct dilatation as well as dilatation of pancreatic duct 2. Large right renal cyst 3. Extensive atherosclerotic vascular calcifications 4. Extensive degenerative changes the lumbar spine. Fracture not appreciated. Cervical Spine CT 06/26/18 10:10 CONCLUSION: 1. Significant degenerative changes in the cervical spine. Spinal stenosis is worse at C5-C6 and C6-C7 2. Given the degree of stenosis controlled flexion-extension films would be of benefit to exclude instability. Elbow X-Ray 06/26/18 10:10 CONCLUSION: Osteopenia, negative for displaced fracture Femur X-Ray 06/26/18 10:10 CONCLUSION: No evidence of recent bony injury. Head CT 06/26/18 10:10 CONCLUSION: 1. Mild cerebral atrophy. 2. Mild periventricular and subcortical white matter small vessel ischemic changes bilaterally. 3. No acute infarct, acute hemorrhage, midline shift or extra-axial fluid collections. . Pelvis X-Ray 06/26/18 10:10 CONCLUSION: 1. No acute fracture or dislocation. 2. Degenerative changes involving lower lumbar spine and bilateral hips. Discharge Plan Discharge Disposition Patient Disposition: /Home Health Service Discharge Condition Condition: Stable Discharge Order Discharge Orders: Discharge Order (Routine); Ordered 06/30/18 Ordered By: Archana Webb Discharge Details Anticipated Discharge Date: 06/30/18 Physicians Team Primary Care Provider: Bernabe Kemp Attending Provider: Archana Webb Rxs /Orders / Referrals /Forms Prescriptions: Continue pravastatin 40 mg Tablet 40 mg PO DAILY RF: 0 apixaban [Eliquis] 5 mg Tablet 5 mg PO BID RF: 0 colchicine [Colcrys] 0.6 mg Tablet 0.12 mg PO DAILY RF: 0 finasteride 5 mg Tablet 5 mg PO DAILY RF: 0 metoprolol succinate 50 mg Tablet Extended Release 24 Hr 50 mg PO DAILY RF: 0 tamsulosin 0.4 mg Capsule 0.4 mg PO DAILY RF: 0 celecoxib 200 mg Capsule 400 mg PO DAILY RF: 0 amlodipine 10 mg Tablet 10 mg PO DAILY RF: 0 lisinopril 10 mg Tablet 10 mg PO DAILY RF: 0 Discontinued spironolactone 25 mg Tablet 25 mg PO DAILY RF: 0 Referrals: Bernabe Kemp MD [Primary Care Provider] - See Instructions Status ED Status: Left Department
== END 2018-06-30 12:02 | disposition home health service (06) ==
LOC: PHED 10:03 → PHEDA 12:33 → PH3 13:40
PROVIDERS: ADMIT Hospitalist; ATTEND Hospitalist
DX: N17.9 Acute kidney failure, unspecified; W19.XXXA Unspecified fall, initial encounter; Y92.000 Kitchen of unspecified non-institutional (private) residence as the place of occurrence of the external cause; C25.9 Malignant neoplasm of pancreas, unspecified; G47.00 Insomnia, unspecified; I48.91 Unspecified atrial fibrillation; Z66 Do not resuscitate; Z91.81 History of falling; I25.10 Atherosclerotic heart disease of native coronary artery without angina pectoris; E86.0 Dehydration; Z87.891 Personal history of nicotine dependence; Z79.01 Long term (current) use of anticoagulants; Z95.1 Presence of aortocoronary bypass graft; E78.5 Hyperlipidemia, unspecified; E86.1 Hypovolemia; N40.0 Benign prostatic hyperplasia without lower urinary tract symptoms; R74.8 Abnormal levels of other serum enzymes; R26.81 Unsteadiness on feet; M62.82 Rhabdomyolysis; K83.1 Obstruction of bile duct; R73.03 Prediabetes